=== PATIENT | male | born 1960 | race Caucasian/White ===

== ENCOUNTER 2019-09-14 02:15 | Inpatient (IN) | payer OTHER ==
[2019-09-14] VITALS (21 sets, daily range): BP systolic 91–130; BP diastolic 48–68
[~2019-09-14] VITALS: Ht 180.3 cm; Wt 178.5 kg
[2019-09-14] MEDS ORDERED: ACETAMINOPHEN TAB 650MG DOSE (2X325MG) PO PRN (03:30)
[2019-09-14] MEDS ORDERED: LORazepam 2 MG TAB PO PRN (05:15)
[2019-09-14] MEDS ORDERED: THIAMINE 100 MG TAB PO SCH (05:18)
[2019-09-14 05:33] LABS: HEMATOCRIT 41.9 % (42.0-52.0); HEMOGLOBIN 13.6 g/dl (13.5-17.5); MEAN CORPUSCULAR HGB CONC 32.5 g/dl (32.0-36.5); RED BLOOD COUNT 3.58 10^6/uL (4.30-6.10); WHITE BLOOD COUNT 9.5 10^3/uL (4.0-10.0)
[2019-09-14] MEDS ORDERED: FOLI1TAB11 PO (05:34)
[2019-09-14] MEDS ORDERED: VITA100T28 PO (05:34)
[2019-09-14] MEDS ORDERED: LACT10SO29 PO (05:34)
[2019-09-14] MEDS ORDERED: VENTAER INH (05:34)
[2019-09-14] MEDS ORDERED: NADO40TA PO (05:34)
[2019-09-14] MEDS ORDERED: FURO80TA2 PO (05:34)
[2019-09-14] MEDS ORDERED: MELA1TAB9 PO (05:34)
[2019-09-14] MEDS ORDERED: SPIR100T3 PO (05:34)
[2019-09-14] MEDS ORDERED: PANT-23 PO (05:34)
[2019-09-14] MEDS ORDERED: VITA100018 PO (05:34)
[2019-09-14 05:42] LABS: INR 1.71; PLATELET COUNT, AUTOMATED 92 10^3/uL (150-450); PROTHROMBIN TIME 19.9 SECONDS (11.8-14.0)
[2019-09-14 05:46] LABS: ABG BASE EXCESS 8.8 (-2.0-2.0); ABG HCO3 40.1 MEQ/L (22.0-26.0); ABG O2 SATURATION 99.2 % (95.0-99.0); ABG PARTIAL PRESSURE O2 163.7 mmHg (75.0-100.0); ABG STANDARD HCO3 32.7 MEQ/L (22.0-26.0)
[2019-09-14 05:49] LABS: ABG PARTIAL PRESSURE CO2 94.2 mmHg (35.0-45.0); ABG pH (ARTERIAL) 7.247 UNITS (7.350-7.450)
--- NOTE | 2019-09-14 05:58 | HPEPDOC ---
[facility] Medical History & Physical Date of Admission Sep 14, 2019 Date of Service: Sep 14, 2019 Attending Physician: FRANCHESCA BURNS MD History and Physical TIME OF SERVICE: 5:10 AM // CC time 40min CHIEF COMPLAINT: Transfer for higher level of care HISTORY OF PRESENT ILLNESS: This is a 58-year-old male who was initially transferred from [place] to a [facility] for alcohol detoxification on September 12. Per d/w the cross- covering provider the patient's course was complicated by the development of encephalopathy possibly 2/2 withdrawal. Yesterday the patient's mental status worsened, and he was noted to be lethargic but not comatose. It was felt that the change is his mental status was not due to withdrawal as his last dose of ativan was administered the day prior and he did not have other symptoms c/w with alcohol. It was possible that the change was due to hypercapnia as the patient's mental status improved after his FiO2 was decreased; additionally his ABG revealed a pH of 7.29, PCO2 of 79.7 and PO2 of 103 on 2L NC. After he was switched to BIPAP (04/25) a second ABG revealed a pH of 7.34 with a PCO2 of 72. Transfer to [facility] was requested by the cross covering provider who anticipated that the patient may need to be intubated which may be challenging because his body habitus and for IR perform paracentesis because the patient has ascites. Currently the patient denies having any pain or dyspnea and is only c/o having a dry mouth. 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 HOME MEDICATIONS: Please see below. PHYSICAL EXAMINATION: VITAL SIGNS: Please see below. GENERAL APPEARANCE: obese / well developed / NAD HEENT: BIPAP mask in place / mucus membranes dry / there is no scleral icterus CARDIOVASCULAR: RRR/NMRG/ extremities are warm and well perfused (exam is limited due to patient's body habitus) LUNGS: there is equal air entry bilaterally and decreased breath sounds (exam is limited due to patient's body habitus) ABDOMEN: soft & NT on palpation MUSCULOSKELETAL: MANDIE in upper extremities : hendricks in place draining dark red/orange urine INTEGUMENT: stasis dermatitis changes in both lower extremities NEUROLOGICAL:CN 2-12 grossly intact / speech not dysarthric PSYCHIATRIC: A&O/ able to understand and follow all commands LABORATORY DATA: Per transfer records WBC 6, Hg 13.9, Plt 86, Na 135, K 3.1, Cl 96, HCO2 39, BUN 7, Cr 1, glucose 98, AST 56, ALT 31, Alk P 141. IMAGING: pending ASSESSMENT: is a 58 yr old M w a PMH of alcoholic liver cirrhosis complicated by thrombocytopenia and ascities, morbid obesity and possibly COPD who was transferred for management of acute hypercapnic respiratory failure who's cause is TBD. PLAN: 1. Acute Hypercapnic Respiratory Failure Cause TBD. According to the transferring provider the patient has COPD but the patient denied knowledge of this diagosis. I suspect he has underlying SWETHA/OHS Plan: admit to ICU / c/w BIPAP / f/u ABG, chest x-ray and Respiratory panel /strict NPO pending Pulm Eval /albuterol PRN / will need PFTs & a sleep study which can be done on an out pt basis 2. Enecephalopathy Possibly due to hypercapnia Plan: frequent neurochecks / f/u ammonia / thiamine 3. Alcohol WD Resolving ? Plan: ativan per CIWA protocol / thiamine / folic acid / fall and seizure precautions 4. Alcoholic Liver Cirrhosis with Ascites and Thrombocytopenia Plan: pending CBC and Coags the day time team may perform paracentesis or consider IR consult for the procedure 5. Tobacco Abuse He declined a nicotine patch Plan: smoking cessation education 6. Morbid Obesity Plan: can f/u w PCP for executive chairman of the board consult & referral for Bariatric surgeon / r ecommend cardiovascular exercise for 40 min 4-5 days a week DVT Px w Heparin bc patient is obese, bed bound and not mobile Dispo pending clinical course Home Medications Scheduled Cyanocobalamin (Vitamin B-12) (Vitamin B-12) 1,000 Mcg Tablet, 1,000 MCG PO DAILY Folic Acid (Folic Acid) 1 Mg Tablet, 1 MG PO DAILY Furosemide (Furosemide) 80 Mg Tablet, 80 MG PO BID Lactulose (Lactulose) 10 Gm/15 Ml Solution, 30 ML PO QID Melatonin (Melatonin) 5 Mg Tablet, 10 MG PO QHS Nadolol (Nadolol) 40 Mg Tablet, 40 MG PO DAILY Pantoprazole Sodium (Pantoprazole Sodium) 40 Mg Tablet.dr, 40 MG PO DAILY Spironolactone (Spironolactone) 100 Mg Tablet, 100 MG PO DAILY Thiamine Mononitrate (Vit B1) (Vitamin B-1) 100 Mg Tablet, 100 MG PO DAILY Scheduled PRN Albuterol Sulfate (Ventolin Hfa) 18 Gm Hfa.aer.ad, 2 PUFF INH Q4H PRN for SHORTNESS OF BREATH Allergies Coded Allergies: Penicillins (Unverified Allergy, Unknown, 09/14/19) A-FIB/CHADSVASC A-FIB History Current/History of A-Fib/PAF?: No Current PO Anticoag Therapy: No FRNACHESCA BURNS MD Sep 14, 2019 05:58
[2019-09-14] MEDS ORDERED: LORazepam 2 MG/ML VIAL (J2060) IV PRN (06:00)
[2019-09-14 06:05] LABS: ALT/SGPT 30 U/L (12-78); BLOOD UREA NITROGEN 10 MG/DL (7-18); CALCIUM LEVEL 8.7 MG/DL (8.5-10.1); CARBON DIOXIDE LEVEL 40 MEQ/L (21-32); CHLORIDE LEVEL 95 MEQ/L (98-107); CREATININE FOR GFR 1.17 MG/DL (0.70-1.30); GLOMERULAR FILTRATION RATE > 60.0 (>56); GLUCOSE, FASTING 98 MG/DL (70-100); POTASSIUM SERUM 3.3 MEQ/L (3.5-5.1); SODIUM LEVEL 138 MEQ/L (136-145)
[2019-09-14 06:06] LABS: BILIRUBIN,TOTAL 5.4 MG/DL (0.2-1.0); TOTAL PROTEIN 6.2 GM/DL (6.4-8.2)
[2019-09-14] MEDS: HEPARIN SOD (PORCINE) 5000 UNITS/ML VIAL SC SCH ×3 (06:42→20:39)
[2019-09-14] MEDS: KCL 10MEQ/100ML SWI (KRUN) 10 MEQ in IV 1 EA IV ONE ×2 (07:00→07:48)
--- NOTE | 2019-09-14 07:13 | REP ---
Portable chest, 06:57 a.m., single AP view with the patient semi upright: There are no comparisons. The lung harper are clear. Cardiac size is enlarged. The sisi, mediastinum, skeletal structures are unremarkable. Impression: Cardiomegaly. Electronically Signed by Gerson Schaffer MD 09/14/2019 07:04 A
[2019-09-14] MEDS ORDERED: ALBUTEROL 90 MCG/ACT 8GM HFA INHALER INH PRN (07:15)
[2019-09-14 07:21] LABS: ABG BASE EXCESS 9.5 (-2.0-2.0); ABG HCO3 39.3 MEQ/L (22.0-26.0); ABG O2 SATURATION 98.1 % (95.0-99.0); ABG PARTIAL PRESSURE O2 107.8 mmHg (75.0-100.0); ABG STANDARD HCO3 33.3 MEQ/L (22.0-26.0); ABG TOTAL CO2 41.9 MEQ/L (22.0-29.0); ABG pH (ARTERIAL) 7.296 UNITS (7.350-7.450)
[2019-09-14 07:23] LABS: ABG PARTIAL PRESSURE CO2 82.5 mmHg (35.0-45.0)
[2019-09-14] MEDS ORDERED: FUROSEMIDE 40 MG/4 ML VIAL (J1940) IV ONE (08:15)
[2019-09-14] MEDS ORDERED: methylPREDNISolone INJ 125 MG/2 ML VIAL (J2930) IV ONE (08:15)
[2019-09-14] MEDS ORDERED: IPRATROPIUM 0.5MG/ALBUTEROL 2.5MG INH SOL UD 3ML (DUONEB)(J7620) NEB PRN (08:15)
[2019-09-14 08:33] LABS: NT-PRO BNP 747 PG/ML (<125)
[2019-09-14] MEDS ORDERED: FOLIC ACID 1 MG TAB PO SCH (09:00)
[2019-09-14] MEDS ORDERED: FUROSEMIDE 80 MG TAB PO SCH (09:00)
[2019-09-14] MEDS ORDERED: MULTIVITAMINS/MINERALS THERAP 1 TAB PO SCH (09:00)
--- NOTE | 2019-09-14 10:18 | CCN ---
DATE OF VISIT: 09/14/2019 START TIME: 849 STOP TIME: 927 I attended Leodan Soria here in the intensive care unit. The patient has been examined and the chart reviewed. I spoke at length with Dr. Alberto earlier regarding him. In essence, this is a 58-year-old gentleman with known long standing alcohol abuse with cirrhosis. He was in [place] for detox, but transferred to [place]. He was found to have acute on chronic respiratory failure with a respiratory acidosis complicated by elevated ammonia. He was also getting benzodiazepines as part of his detox. He is known to have very significant ascites felt to be complicating his status as well. First blood gas done on arrival here with pH 7.247, pCO2 94.2 and pO2 163.7. Manipulations made in the bilevel, pH now 7.296, pCO2 down to 82.5 and pO2 of 107.8. At one point at [place] on bilevel support, he had a pH of 7.34 with a pCO2 of 72. Chest x-ray shows poor inspiratory effort, there may be some vascular congestion. Other laboratories show a sodium of 138, potassium 3.3, chloride 95, CO2 40, BUN 10, creatinine 1.17. Ammonia is 60. Pro BNP is 747. AST and ALT 49 and 30 respectively. Alkaline phosphatase 125. INR 1.7. White blood cell count 9.5, hemoglobin 13.6 and platelet count 92. Bilirubin was 5.4. On exam, blood pressure 104 systolic, respiratory rate 14 to 16 and unlabored on the noninvasive support. He is afebrile at 97.6. HEENT: Shows noninvasive mas in place. Pupils do react. Sclerae are mildly icteric. Trachea is in the midline. Jugular venous system difficult to assess with his BiPap mask in place and his body habitus. Chest shows diminished, but symmetric expansion. There are some faint crackles dependently. Cardiac Exam: Distant, mildly tachycardiac, but regular. Peripheral pulses are markedly diminished and there is woody edema with chronic venous stasis changes noted. Abdomen is obese. There clearly is ascites. There are positive bowel sounds in the distance. Extremities show chronic skin changes consistent with chronic venous stasis. Edema is as noted above. Neurologically sedate. Moves all extremities. Somewhat intermittently confused when aroused, but does answer questions. Psychiatric: Sedate. The most pressing problems requiring my presence at the bedside: 1. Acute on chronic respiratory failure, both hypoxemic and hypercapnic. 2. Cirrhosis with ascites, felt to be secondary to alcohol disease. 3. Long standing tobacco abuse. 4. Chronic venous stasis disease. 5. Encephalopathy, multifactorial. 6. Morbid obesity. 7. Suspect underlying obstructive sleep apnea. 8. Thrombocytopenia. 9. Coagulopathy secondary to liver disease. His medication list has been reviewed. He is receiving sedatives as part of his detox and I would be somewhat more careful regarding his benzodiazepines. At this point, he is a trial of intubation if needed, but I do believe if some of his ascites were able to be drained, it would certainly significantly improve his respiratory status. Currently, he is moving tidal volumes in excess of 700 on his current noninvasive settings and these are volumes we would never able to be even close to achieving via mechanical ventilatory support. In view of this, will continue with noninvasive support for now. I am in agreement with the remainder of his regimen, but care must be taken with his benzodiazepines. At this point, we will proceed as outlined above. He does remain critically ill and there is certainly a high degree of the likelihood for further compromise. I left the bedside at 0928 hours. 38 minutes of critical care time delivered at the bedside, not including procedures.
[2019-09-14] MEDS: FOLIC ACID 1 MG TAB PO SCH (10:26)
[2019-09-14] MEDS: LACTULOSE 20 GM/30 ML SYRUP UD PO SCH ×4 (10:26→20:39)
--- NOTE | 2019-09-14 10:26 | IPNPDOC ---
Text Note Date of Service The patient was seen on 09/14/19. NOTE SUBJECTIVE: Patient is a 58 -year-old male admitted for hypercapnia, of unknown cause. He was started on BiPAP overnight in the ICU. Overnight patient was afebrile. This morning, he had complained of shortness of breath, pain in the scrotum, no chest pain, no palpitation. He was on BiPAP early this morning. OBJECTIVE: PHYSICAL EXAMINATION: GENERAL APPEARANCE: Obese, slightly malodorous gentleman, resting in bed, with BiPAP SKIN: Warm, venous stasis noticed on lower extremity ENT: Dry oral mucous membrane LUNGS: Moderate wheeze heard in bilateral lower lung harper, no rhonchi, no crackles HEART: Normal S1, S2. No murmurs, no rubs, no gallops ABDOMEN: Obese abdomen, nondistended, bowel sounds present, EXTREMITIES: Moves all extremities equally. No gross deformities. 1+ pitting edema. PULSES: 2+ upper and lower extremity . Genital: Zuniga catheter in place, large fluid-filled scrotum, positive light illumination LABORATORY DATA: Please see below. IMAGING: Chest X-Ray: Cardiomegaly, with Lopressor comparison. ASSESSMENT AND PLAN: Patient is a 58, year old male admitted for hypercapnic respiratory failure, secondary to COPD, congestive heart failure, alcohol withdrawal, and SWETHA Acute hypercapnic and hypoxic respiratory failure . Etiology is questionable, differential diagnoses include acute exacerbation of suspected COPD, acute decompensated right sided heat failure, all in the setting of SWETHA -Admit to the ICU on BiPAP -Echocardiogram ordered -Initial PCO2 was 94.2, repeat was 82.2, continue to trend - Clinically patient appears to have signs of fluid overload; He has been given a dose of Furosemide 40 IV - will continue to monitor fluid output - Patient has an extensive smoking history; high suspicion for underlying COPD; will give loading dose of Solumedrol 125 IV and continue with 60 IV q8H - Will start inhaled therapy with Duoneb q4h and PRN -Payloader Machine Operator consulted. will continue to monitor Decompensated right sided heart failure -Patient appears to be edematous, with venous stasis, no crackles were however appreciated -Chest x-ray showed cardiomegaly, no prior for comparison, -BNP of 747 -Given 40 IV Lasix, patient was also on 80 mg of Lasix by mouth twice a day, have restarted this. -Cardiac Echo ordered Acute exacerbation of suspected COPD -Started on IV methylprednisone -Duoneb on board Alcohol abuse disorder - Patient is at risk of withdrawal - c/w CIWA protocol; s/p Ativan - c/w Thiamine, Folate and MVI History of underlying cirrhosis with ascites - Mild elevation of AST to ALT; 2:1 ratio - suggesting alcohol abuse Thrombocytopenia - Likely 2/2 liver dysfunction (as above) Coagulopathy - Likely 2/2 liver dysfunction (as above) - INR of 1.7 - No evidence of bleeding; will continue to monitor Hydrocele, - likely secondary to fluid overload -Will continue to follow I/Os -Lasix on board -Will continue to monitor Difficult IV access -PICC line ordered Morbid obesity This presents a complication to his overall health, care management. Hypokalemia -IV replacement orders DVT Prophylaxis -Heparin VS,Fishbone, I+O VS, Fishbone, I+O Laboratory Tests 09/14/19 05:20 Vital Signs Date Time Temp Pulse Resp B/P (MAP) Pulse Ox O2 Delivery O2 Flow Rate FiO2 09/14/19 07:55 96.2 63 13 94/50 (65) 97 NIPPV (BIPAP/CPAP) 35 I&O- Last 24 Hours up to 6 AM 09/14/19 06:00 Intake Total 0 ml Output Total 750 ml Balance -750 ml GME ATTESTATION GME ATTESTATION My faculty preceptor for this patient encounter was physically present during the encounter and was fully available. All aspects of the patient interview, examination, medical decision making process, and medical care plan development were reviewed and approved by the faculty preceptor. The faculty preceptor is aware and concurs with the plan as stated in the body of this note and will attest to such by his/her cosignature. ATTENDING NOTE I, Shanta Palm, have independently examined this patient and performed my own physical exam, as well as reviewed the documentation and edited where necessary. I have discussed in detail with the resident / student the findings and plan of treatment as documented by the resident / student and edited their note. I agree with their findings and treatment plan and have edited their documentation. I will continue to follow the patient during this hospital stay. Plan: - Payloader Machine Operator consulted for BIPAP management; appreciate their input - Physical with evidence of wheezing at bilateral lung harper and lower extremity pitting edema as well as scrotal edema is appreciated - Patient does not have a formal diagnosis of COPD; however given his extensive smoking history and clinical picture - suspected acute COPD exacerbation is likely - Patient likely has right-sided heart failure in the setting - I have given him a dose of furosemide 40 IV with plans for strict ins and outs and daily weights - I have given him a dose of Solu-Medrol 125 mg IV and will continue with Solu- Medrol 60 mg IV q6h with JINNY Park DO Sep 14, 2019 10:26 SHANTA PALM MD Sep 14, 2019 13:09
[2019-09-14] MEDS: CYANOCOBALAMIN 500 MCG TAB PO SCH (10:27)
[2019-09-14] MEDS: PANTOPRAZOLE 40MG TAB (PROTONIX) PO SCH (10:27)
[2019-09-14] MEDS: POTASSIUM CHLORIDE 10 MEQ SR TABLET PO ONE ×2 (10:27→10:30)
[2019-09-14] MEDS: NADOLOL 20MG TABLET PO SCH (10:28)
[2019-09-14] MEDS: SPIRONOLACTONE 50 MG TAB PO SCH (10:28)
[2019-09-14 14:31] LABS: ABG pH (ARTERIAL) 7.331 UNITS (7.350-7.450)
[2019-09-14 14:32] LABS: ABG HCO3 39.1 MEQ/L (22.0-26.0); ABG O2 SATURATION 94.9 % (95.0-99.0); ABG PARTIAL PRESSURE O2 75.2 mmHg (75.0-100.0); ABG STANDARD HCO3 33.7 MEQ/L (22.0-26.0); ABG TOTAL CO2 41.4 MEQ/L (22.0-29.0)
[2019-09-14 14:33] LABS: ABG PARTIAL PRESSURE CO2 75.6 mmHg (35.0-45.0)
[2019-09-14] MEDS ORDERED: LIDOCAINE 1% MDV 20ML VIAL As Ordered ONE (15:30)
[2019-09-14] MEDS: IPRATROPIUM 0.5MG/ALBUTEROL 2.5MG INH SOL UD 3ML (DUONEB)(J7620) NEB SCH ×3 (16:46→20:26)
[2019-09-14] MEDS: methylPREDNISolone INJ 125 MG/2 ML VIAL (J2930) IV SCH ×2 (16:52→20:39)
[2019-09-14] MEDS: THIAMINE HCL 200 MG/2 ML VIAL (J3411) IV SCH (16:52)
[2019-09-14] MEDS: FUROSEMIDE 40 MG/4 ML VIAL (J1940) IV SCH (17:00)
[2019-09-14 21:36] LABS: CALCIUM LEVEL 8.9 MG/DL (8.5-10.1); CREATININE FOR GFR 1.49 MG/DL (0.70-1.30); GLOMERULAR FILTRATION RATE 51.4 (>56); MAGNESIUM LEVEL 1.8 MG/DL (1.8-2.4); POTASSIUM SERUM 3.8 MEQ/L (3.5-5.1)
[2019-09-15] VITALS (17 sets, daily range): BP systolic 89–143; BP diastolic 46–66
[2019-09-15] MEDS: FUROSEMIDE 40 MG/4 ML VIAL (J1940) IV SCH
[2019-09-15] MEDS: IPRATROPIUM 0.5MG/ALBUTEROL 2.5MG INH SOL UD 3ML (DUONEB)(J7620) NEB SCH ×4 (01:56→19:37)
[2019-09-15] MEDS: HEPARIN SOD (PORCINE) 5000 UNITS/ML VIAL SC SCH ×3 (05:40→22:56)
[2019-09-15] MEDS: methylPREDNISolone INJ 125 MG/2 ML VIAL (J2930) IV SCH ×2 (05:40→18:10)
[2019-09-15 05:55] LABS: HEMATOCRIT 38.9 % (42.0-52.0); MEAN CORPUSCULAR HEMOGLOBIN 37.2 pg (27.0-33.0); MEAN CORPUSCULAR HGB CONC 33.4 g/dl (32.0-36.5); MEAN CORPUSCULAR VOLUME 111.5 fl (80.0-96.0); PLATELET COUNT, AUTOMATED 106 10^3/uL (150-450); RED BLOOD COUNT 3.49 10^6/uL (4.30-6.10); WHITE BLOOD COUNT 9.6 10^3/uL (4.0-10.0)
[2019-09-15 06:19] LABS: ALBUMIN 1.9 GM/DL (3.2-5.2); BILIRUBIN,TOTAL 4.5 MG/DL (0.2-1.0); CALCIUM LEVEL 8.7 MG/DL (8.5-10.1); CREATININE FOR GFR 1.68 MG/DL (0.70-1.30); GLOMERULAR FILTRATION RATE 44.7 (>56); POTASSIUM SERUM 3.9 MEQ/L (3.5-5.1); TOTAL PROTEIN 6.1 GM/DL (6.4-8.2)
[2019-09-15] MEDS: SPIRONOLACTONE 50 MG TAB PO SCH (08:09)
[2019-09-15] MEDS: NADOLOL 20MG TABLET PO SCH (08:10)
[2019-09-15] MEDS: FOLIC ACID 1 MG TAB PO SCH (08:21)
[2019-09-15] MEDS: THIAMINE HCL 200 MG/2 ML VIAL (J3411) IV SCH (08:21)
[2019-09-15] MEDS: PANTOPRAZOLE 40MG TAB (PROTONIX) PO SCH (08:21)
[2019-09-15] MEDS: CYANOCOBALAMIN 500 MCG TAB PO SCH (08:21)
[2019-09-15] MEDS: LACTULOSE 20 GM/30 ML SYRUP UD PO SCH ×2 (08:22→13:00)
[2019-09-15 08:58] LABS: ABG BASE EXCESS 7.5 (-2.0-2.0); ABG HCO3 32.9 MEQ/L (22.0-26.0); ABG O2 SATURATION 94.9 % (95.0-99.0); ABG PARTIAL PRESSURE O2 68.3 mmHg (75.0-100.0); ABG STANDARD HCO3 31.3 MEQ/L (22.0-26.0); ABG TOTAL CO2 34.4 MEQ/L (22.0-29.0); ABG pH (ARTERIAL) 7.445 UNITS (7.350-7.450)
--- NOTE | 2019-09-15 10:16 | REP ---
Procedure: PICC line insertion with Sadi The procedure was performed under the direct supervision of Dr. Ayon. The risks and benefits of the procedure were explained to the patient and informed consent was obtained. The procedure was performed in the ICU at the bedside. The right basilic vein was localized using ultrasound guidance. The skin was prepped and draped in a sterile fashion. 1% lidocaine was used as a local anesthetic. Using ultrasound guidance the basilic vein was cannulated and a 0.018 guidewire was inserted. The needle was removed and a 5.5 Mongolian dilator and peel-away sheath was inserted over the guide wire. A 5.5 Mongolian dual in lumen catheter was cut to length of 43 cm. The dilator was removed and the catheter was inserted over the guide wire. A portable chest x-ray was performed and the image demonstrates the tip of the catheter to be in the SVC. The peel-away sheath was removed and the catheter was flushed with heparinized saline as per Hospital protocol. The catheter was affixed to the skin and a sterile dressing was applied. The patient tolerated the procedure well and there were no immediate complications. Electronically Signed by MANJULA Dove 09/15/2019 08:48 A Electronically Signed by Felix Ayon MD 09/15/2019 10:08 A
--- NOTE | 2019-09-15 11:22 | IPN ---
DATE: 09/15/2019 NOTE: Mr. Soria, did well overnight on the noninvasive mechanical ventilator. This morning he is alert and awake. He is requesting food. He is also requesting that he be allowed to get out of bed. He denies a significant cough. No shortness of breath. No chest pain or pressure. Occasionally he feels like he cannot take in a deep breath. He denies nausea. No abdominal pain. In asking him his history, he has had two previous paracentesis, though they both sound as if they were several years ago. It is also not clear that he follows regularly with a primary care provider in [place]. OBJECTIVE PHYSICAL EXAMINATION: GENERAL: Mr. Soria is lying in bed no acute distress. He can complete full sentences. No significant cough during the evaluation. VITAL SIGNS: Temperature 96.7, pulse of 45-50, respiratory rate 15-16, blood pressure 97/53 with a MAP of 68. SPO2 99% on with NIMV with a FIO2 of 0.3. HEENT: Anicteric, nares patent bilaterally. Oropharynx clear. NECK: Supple, without thyromegaly or masses, trachea is midline. LYMPH: Without cervical or supraclavicular lymphadenopathy. LUNGS: Symmetric excursion, generalized diminished air entry. No wheeze, rhonchi or crackle on tidaled excursion (anteriorly). Normal I:E. No accessory muscle usage or retractions. CARDIOVASCULAR: Distant, bradycardic, normal S1-S2. No murmur, rub or gallop appreciated, though difficult exam given body habitus. ABDOMEN: Distended, positive bowel sounds, ascites. EXTREMITIES: Chronic venous stasis changes, there is 2-3+ edema. Weak but palpable pedal pulses bilaterally. No cyanosis or clubbing. NEUROLOGIC: Continues to move all extremities. Alert, awake and oriented times three. PSYCHIATRIC: Appropriate affect. LABORATORY DATA: CBC shows a hemoglobin of 13, hematocrit 38.9, platelet count 106,000, white blood cell count 9600. Chemistry shows sodium 135, potassium 3.9, chloride 93, bicarbonate 37, anion gap 5, BUN 21, creatinine 1.7, glucose 128, calcium 8.7, magnesium 2.0, total bilirubin 4.5, AST 38, ALT 29, alkaline phosphatase 116, ammonia 21, total protein 6.1, albumin 1.9. Arterial blood gas drawn on room air was 7.45/49/68 with a measured saturation of 95% and a base excess of 7.5. Yesterday's intake and output were 860 in and 1400 out making him negative 540. Thus far today 60 in and 155 out making him negative 95. Weight yesterday 190.8 kg. IMPRESSION: 1. Acute and chronic hypercapnic respiratory failure. Differential would include secondary to COPD, SWETHA, other. 2. Cirrhosis with ascites, felt secondary to EtOH abuse. 3. Lower extremity edema. Differential would include right heart failure (enlarged cardiac silhouette on chest x-ray), secondary to extrinsic compression from ascites, or other. 4. Chronic venous stasis disease. 5. Possible underlying obstructive sleep apnea. 6. Possible underlying COPD. 7. EtOH abuse, on CIWA. 8. Tobacco usage, ongoing. RECOMMENDATIONS: 1. Will transition his NIMV to bilevel therapy with naps and nocturnally. 2. Will begin clear liquids. However, as he is potential intubation if he fails NIMV, would not advance rapidly. 3. Would get him out of bed with assist. 4. Would consider paracentesis. If that is done would anticipate that he will get hypotensive and likely would benefit from albumin resuscitation at the same time as the thoracentesis. 5. Agree with [facility] protocol. 6. The tentative plan is if he does well with the above strategy in regards to his bilevel therapy, we will discontinue it tomorrow and see how he does clinically. CAROLINE
--- NOTE | 2019-09-15 11:29 | REP ---
ASCITES SURVEY: HISTORY: Cirrhotic ascites. FINDINGS: Four-quadrant abdominal survey confirms the presence of mild to moderate abdominal ascites. Ascites is visible in all four quadrants. Electronically Signed by Felix Ayon MD 09/15/2019 01:53 P
--- NOTE | 2019-09-15 13:53 | IPNPDOC ---
Date Seen The patient was seen on 09/15/19. Progress Note SUBJECTIVE: Pt seen at bedside today. He has no acute complaints. He complains of difficulty when trying to take a deep breath. He wasn't currently short of breath. Denies any nausea, vomiting, chest pain, weakness, or tingling. OBJECTIVE PHYSICAL EXAMINATION: VITAL SIGNS: Please see below. GENERAL: Patient is pleasant and cooperative, sitting up comfortably in bed, alert and oriented in no acute distress. Skin: Visibly apparent Gynecomastia. No Spider Angiomata noted. HEENT: Normocephalic, atraumatic. No scleral icterus. PERRLA. EOMI. no nasal discharge. No tracheal deviation. No obvious swollen lymph nodes CARDIOVASCULAR: Regular rate and rhythm. Normal S1 and S2. No murmurs, gallops or rubs noted RESPIRATORY: Symmetric chest wall motion. Mild crackles noted b/l. No rhonchi noted. ABDOMINAL: Grossly distended abdomen. Dull to percussion. Fluid wave noted. Normal bowel sounds in all 4 quadrants. Pain on deep palpation, no guarding or rigidity Genitourinary: Zuniga catheter in place EXTREMITIES:. 2/4 pulses noted throughout. Chronic venous stasis skin changes in lower extremities. 1+ pitting edema noted bilaterally NEUROLOGICAL: A&O x3. Spontaneous movements of all extremities. No focal deficits noted. No asterixis noted PSYCHOLOGICAL: Mood and affect were appropriate LABORATORY DATA, MICROBIOLOGY: Please see below. 09/14/2019. Portable chest x-ray: Cardiomegaly 09/15/2019. Abdominal ultrasound: 4 quadrant abdominal survey confirms the presence of mild to moderate abdominal ascites. Ascites is visible in all 4 quadrants. ASSESSMENT AND PLAN: This is a 58-year-old white male with past medical history of alcoholic liver cirrhosis with ascites and thrombocytopenia, possible COPD, and bilateral stasis dermatitis presenting with acute on chronic hypercapnic re spiratory failure, found to have an ABG pH of 7.247 and PCO2 of 94.2 on admission. PROBLEMS: 1. Acute on chronic Hypercapnic Respiratory Failure (possibly 2/2 acute exacerbation of COPD or decompensated diastolic / right sided CHF) -ABG 7.45/49/68 with O2% of 95 and base excess 7.5. -Per Pulmonology -Transition his NIMV to bi-level therapy with naps and nocturnally -Past smoking history -Duonebs q6 ordered -Pulmonary consulted, appreciate their recommendations 2. Cirrhosis w/ ascites (2/2 Alcoholism) -4 quadrant abdominal survey confirms presence of mild to moderate abdominal ascites. Ascites is visible in all 4 quadrants. -Radiology consulted regarding Paracentesis, pt scheduled to undergo this afternoon. -continue lactulose -Pt currently does not exhibit any signs of withdrawal 3. R. Sided Heart Failure -Pt is edematous -stable respiratory status -holding Lasix due to creatinine function -Pending Echocardiogram -F/U pt's fluid status post paracentesis 4.Elevated creatinine - likely 2/2 ADAM - possibly 2/2 diuresis - Cr is elevated compared to admission levels - Will discontinue diuretic therapy - Avoid nephrotoxic medications - no IV fluids considering current edematous status 5. Coagulopathy -2/2 to Cirrhosis -Current INR at 1.71 -PT 19.9 6. Lower extremity edema -2/2 to R. HF and Fluid overload -80mg IV Lasix administered yesterday 7. Hydrocele 2/2 to fluid overload -Evaluate remission post paracentesis -Continue to monitor 8. Chronic venous stasis -Continue to monitor 9. Potential COPD - see above -Smoking history 10. Morbid Obesity -BMI of 58.7 -Complication to overall health and management 11. Hypokalemia -Resolved -continue to monitor DVT Prophylaxis -Heparin DISPOSITION: Awaiting Paracentesis VS, I&O, [facility] Vital Signs/I&O Vital Signs Date Time Temp Pulse Resp B/P (MAP) Pulse Ox O2 Delivery O2 Flow Rate FiO2 09/15/19 08:30 30 09/15/19 08:10 45 97/53 09/15/19 08:00 96.7 16 99 NIPPV (BIPAP/CPAP) I&O- Last 24 Hours up to 6 AM 09/15/19 05:59 Intake Total 860 ml Output Total 760 ml Balance 100 ml Laboratory Data 24H LABS Laboratory Tests 2 09/14/19 14:25: Blood Gas Bicarbonate Standard 33.7H, Arterial Blood pH 7.331L, Arterial Blood Partial Pressure CO2 75.6*H, Arterial Blood Partial Pressure O2 75.2, Arterial Blood Total CO2 41.4H, Arterial Blood HCO3 39.1H, Arterial Blood Base Excess 10.0H, Arterial Blood Oxygen Saturation 94.9L 09/14/19 21:01: Anion Gap 4L, Glomerular Filtration Rate 51.4L, Calcium Level 8.9, Magnesium Level 1.8 09/15/19 05:35: Anion Gap 5L, Glomerular Filtration Rate 44.7L, Calcium Level 8.7, Magnesium Level 2.0, Nucleated Red Blood Cells % (auto) 0.0, Total Bilirubin 4.5H, Aspartate Amino Transf (AST/SGOT) 38H, Alanine Aminotransferase (ALT/SGPT) 29, Alkaline Phosphatase 116, Ammonia 21, Total Protein 6.1L, Albumin 1.9L, Albumin/Globulin Ratio 0.45L 09/15/19 08:38: Blood Gas Bicarbonate Standard 31.3H, Arterial Blood pH 7.445, Arterial Blood Partial Pressure CO2 49.0H, Arterial Blood Partial Pressure O2 68.3L, Arterial Blood Total CO2 34.4H, Arterial Blood HCO3 32.9H, Arterial Blood Base Excess 7.5H, Arterial Blood Oxygen Saturation 94.9L CBC/BMP Laboratory Tests 09/14/19 21:01 09/15/19 05:35 Microbiology Microbiology 09/14/19 Respiratory Virus Panel (PCR) ([facility]ENOBIA) - Final, Complete 09/14/19 Blood Culture - Preliminary, Resulted No growth after 24 hours . All specim... 09/14/19 Blood Culture - Preliminary, Resulted No growth after 24 hours . All specim... GME ATTESTATION GME ATTESTATION My faculty preceptor for this patient encounter was physically present during the encounter and was fully available. All aspects of the patient interview, examination, medical decision making process, and medical care plan development were reviewed and approved by the faculty preceptor. The faculty preceptor is aware and concurs with the plan as stated in the body of this note and will attest to such by his/her cosignature. ATTENDING NOTE I, Shanta Polo, have independently examined this patient and performed my own physical exam, as well as reviewed the documentation and edited where necessary. I have discussed in detail with the resident / student the findings and plan of treatment as documented by the resident / student and edited their note. I agree with their findings and treatment plan and have edited their documentation. I will continue to follow the patient during this hospital stay. RACHELLE PAUL-Heri Sep 15, 2019 13:32 SHANTA POLO MD Sep 15, 2019 14:01
--- NOTE | 2019-09-15 17:33 | REP ---
Ultrasound-guided paracentesis The procedure was performed under the direct supervision of Dr. Ayon. The risks and benefits of the procedure were explained to the patient and informed consent was obtained. The largest pocket of fluid was localized in the left flank using ultrasound guidance. The skin was prepped and draped in a sterile fashion. 1% lidocaine was used as a local anesthetic. An 8-Mongolian multi side-hole catheter was inserted using trocar technique. 4400 ml of dark yellow fluid was withdrawn and discarded. The patient tolerated the procedure well and there were no immediate complications. After the appropriate amount of monitored convalescence the patient was discharged from the department. Electronically Signed by MANJULA Dove 09/15/2019 05:14 P Electronically Signed by Felix Ayon MD 09/15/2019 05:23 P
[2019-09-16] VITALS (19 sets, daily range): BP systolic 105–150; BP diastolic 58–86
[2019-09-16] MEDS: IPRATROPIUM 0.5MG/ALBUTEROL 2.5MG INH SOL UD 3ML (DUONEB)(J7620) NEB SCH ×3 (02:11→19:54)
[2019-09-16 05:22] LABS: BASO % 0.2 % (0.0-1.0); HEMATOCRIT 36.5 % (42.0-52.0); HEMOGLOBIN 12.5 g/dl (13.5-17.5); LYMPH # 0.5 10^3/uL (1.5-5.0); LYMPH % 4.7 % (24.0-44.0); MEAN CORPUSCULAR HEMOGLOBIN 37.3 pg (27.0-33.0); MEAN CORPUSCULAR HGB CONC 34.2 g/dl (32.0-36.5); MONO # 1.1 10^3/uL (0.0-0.8); MONO % 10.9 % (0.0-5.0); NEUTROPHILS # 8.6 10^3/uL (1.5-8.5); NEUTROPHILS % 83.3 % (36.0-66.0); PLATELET COUNT, AUTOMATED 115 10^3/uL (150-450); RED BLOOD COUNT 3.35 10^6/uL (4.30-6.10); WHITE BLOOD COUNT 10.4 10^3/uL (4.0-10.0)
[2019-09-16 05:47] LABS: CALCIUM LEVEL 8.8 MG/DL (8.5-10.1); GLOMERULAR FILTRATION RATE 36.6 (>56); POTASSIUM SERUM 3.5 MEQ/L (3.5-5.1)
[2019-09-16] MEDS: HEPARIN SOD (PORCINE) 5000 UNITS/ML VIAL SC SCH ×3 (06:45→21:29)
[2019-09-16] MEDS: methylPREDNISolone INJ 125 MG/2 ML VIAL (J2930) IV SCH (06:45)
[2019-09-16] MEDS: THIAMINE HCL 200 MG/2 ML VIAL (J3411) IV SCH (08:59)
[2019-09-16] MEDS: FOLIC ACID 1 MG TAB PO SCH (08:59)
[2019-09-16] MEDS: CYANOCOBALAMIN 500 MCG TAB PO SCH (09:00)
[2019-09-16] MEDS: PANTOPRAZOLE 40MG TAB (PROTONIX) PO SCH (09:00)
[2019-09-16] MEDS: SPIRONOLACTONE 50 MG TAB PO SCH (09:00)
[2019-09-16] MEDS: NADOLOL 20MG TABLET PO SCH (09:00)
--- NOTE | 2019-09-16 09:01 | ECGEPIP ---
[facility] Test Date: 2019-09-15 Pat Name: CHELSIE OLIVAREZ Department: Room: [place] [address] Gender: Male [employer] Rol[employer] Operator: KAITLYNN : 1960 Requested By: MICHELE POLO Order Number: [id number] Reading MD: Keshav Wiley Measurements Intervals [place] Rate: 49 P: VT: 0 QRS: 44 QRSD: 120 T: 30 QT: 484 QTc: 439 Interpretive Statements Sinus bradycardia most likely; baseline artifact confounds rhythm interpretation Low QRS complex voltage in all leads Incomplete right bundle branch block Nonspecific ST-T wave abnormalities Comparison tracing not on file Electronically Signed on 09-16-2019 9:01:07 EST by Keshav Wiley
--- NOTE | 2019-09-16 10:21 | IPNPDOC ---
Text Note Date of Service The patient was seen on 09/16/19. NOTE SUBJECTIVE: Patient was examined at bedside this morning, he complained of shortness of breath overnight. Patient reports that he is having discomfort with this cat heter. We have advised him that it will be discontinued today and we will continue with the bedpan in its place. Patient is status post paracentesis from yesterday, as well as status post receiving albumin. OBJECTIVE PHYSICAL EXAMINATION: VITAL SIGNS: Please see below. GENERAL: Cooperative, obese gentleman, sitting in the chest Skin: Gynecomastia. No Spider Angiomata noted. CARDIOVASCULAR: Bradycardic. Normal S1 and S2. No murmurs, gallops or rubs noted RESPIRATORY: Bilateral wheezing noted in upper and lower lung harper ABDOMINAL: Bowel sounds present in 4 quadrants, distended, obese abdomen, no tenderness to palpation Genitourinary: Zuniga catheter in place, Large scrotal swelling persists EXTREMITIES:. 2/4 pulses noted throughout. Chronic venous stasis skin changes in lower extremities. 1+ pitting edema noted bilaterally NEUROLOGICAL: A&O x3. Spontaneous movements of all extremities. No focal deficits noted PSYCHOLOGICAL: Mood and affect were appropriate LABORATORY DATA, MICROBIOLOGY: Please see below. 09/14/2019. Portable chest x-ray: Cardiomegaly 09/15/2019. Abdominal ultrasound: 4 quadrant abdominal survey confirms the presence of mild to moderate abdominal ascites. Ascites is visible in all 4 quadrants. ASSESSMENT AND PLAN: This is a 58-year-old white male with past medical history of alcoholic liver cirrhosis with ascites and thrombocytopenia, possible COPD, and bilateral stasis dermatitis presenting with acute on chronic hypercapnic respiratory failure, found to have an ABG pH of 7.247 and PCO2 of 94.2 on admission. PROBLEMS: Acute on chronic Hypercapnic Respiratory Failure (possibly 2/2 acute exacerbation of COPD or decompensated diastolic / right sided CHF) -Hypercapnia has continues to improve -Past smoking history -ECHO will be completed today -Duonebs q6 ordered PRN -Pulmonary on consultation; Appreciate their recommendations; transitioned to Prednisone PO and will continue with BIPAP only PRN Cirrhosis w/ ascites (2/2 Alcoholism) -S/p paracentesis with removal of 4400 ml -s/p lactulose -Pt currently does not exhibit any signs of withdrawal Elevated creatinine - likely 2/2 ADAM - possibly 2/2 diuresis, possibly 2/2 hepatorenal, possibly 2/2 cardiorenal - Clinically patient appears to in anasarca - Gross fluid overload - s/p Paracentesis - Unclear what patient's Cr baseline may be - Albumin levels significantly low in the setting of liver dysfunction / cirrhosis - s/p diuretic therapy - Will continue to avoid nephrotoxic medications - Will check UA / Urine electrolytes - Will continue with Albumin infusion at this point - Will consult nephrology Suspected decompensated Diastolic / R. Sided Heart Failure - Pt is edematous - stable respiratory status - Diuretics on hold (re: renal function) - Echocardiogram has been ordered Coagulopathy -2/2 to Cirrhosis - INR on admission of 1.71 Lower extremity edema / Chronic venous stasis- 2/2 to above Hydrocele 2/2 to fluid overload - See above Potential COPD - see above - Smoking history Morbid Obesity - BMI of 58.7 - Complication to overall health and management Hypokalemia - Resolved - Continue to monitor DVT Prophylaxis - Heparin DISPOSITION: - Awaiting clinical improvement VS,Jesus, I+O VS, Jesus, I+O Laboratory Tests 09/16/19 04:55 Vital Signs Date Time Temp Pulse Resp B/P (MAP) Pulse Ox O2 Delivery O2 Flow Rate FiO2 09/16/19 09:00 59 09/16/19 04:40 30 09/16/19 04:00 96.7 15 110/60 (77) 97 NIPPV (BIPAP/CPAP) I&O- Last 24 Hours up to 6 AM 09/16/19 05:59 Intake Total 1880 ml Output Total 4880 ml Balance -3000 ml GME ATTESTATION E ATTESTATION My faculty preceptor for this patient encounter was physically present during the encounter and was fully available. All aspects of the patient interview, examination, medical decision making process, and medical care plan development were reviewed and approved by the faculty preceptor. The faculty preceptor is aware and concurs with the plan as stated in the body of this note and will attest to such by his/her cosignature. ATTENDING NOTE I, Shanta Palm, have independently examined this patient and performed my own physical exam, as well as reviewed the documentation and edited where necessary. I have discussed in detail with the resident / student the findings and plan of treatment as documented by the resident / student and edited their note. I agree with their findings and treatment plan and have edited their documentation. I will continue to follow the patient during this hospital stay. JINNY ACUÑA DO Sep 16, 2019 10:21 SHANTA PALM MD Sep 16, 2019 12:48
--- NOTE | 2019-09-16 12:02 | IPN ---
DATE: 09/16/2019 Mr. Soria did well yesterday off non-invasive mechanical ventilation. He tolerated bilevel last evening. He is eating a full low-sodium diet. He has been out of bed to chair. He had a paracentesis which removed 4.5 liters of fluid. Now he occasionally feels lightheaded but that resolves with time. He is receiving 25% albumin. His biggest complaint today is that he does not like the bed and he is threatening to pull the mattress off the bed in sleep on the floor. Otherwise no shortness of breath. No cough. No chest pain or pressure. He notes his legs are still swollen. No other events overnight. He apparently he has been evicted from his home and patient family services has been consulted. PHYSICAL EXAMINATION: Mr. Soria is sitting in the chair, no acute distress. He can complete full sentences. No cough evaluation. Vital signs: Temperature 96.7, pulse 59, respiratory rate 15, blood pressure 110/60 for MAP of 7. SPO2 94% on room air. HEENT: Anicteric. Nares: Patent bilaterally. Oropharynx clear. Neck: Supple, without thyromegaly or masses, trachea is midline. Lungs: Symmetric excursion, good air entry, no wheeze, rhonchi or crackle on tidal excursion. Normal I to E. No accessory muscle usage or retractions. Cardiovascular: Bradycardic, regular rhythm, normal S1-S2. No murmur, rub or gallop appreciated, though difficult exam. Abdomen: Positive bowel sounds, distended. Extremities: Unchanged no apparent change in edema. Without cyanosis or clubbing. Neurologic: No focal deficits. Psychiatric appropriate affect. LABORATORY DATA: CBC this morning showed a hemoglobin 12.5, hematocrit 36.5, platelet count 115,000, white blood cell count 10,400 with a differential of 83% neutrophils, 5% lymphocytes, 11% monocytes. Chemistries from this morning shows sodium 134, potassium 3.5, chloride 92, bicarbonate 36, anion gap 6, BUN 31, creatinine two, glucose 128 date, calcium 8.8. Yesterday's Intake and output were 1520 in and 4840 out making him negative 3320. Of the output 4400 was the secondary to paracentesis. Thus far today 360 in and 225 making him positive 135. IMPRESSION: 1. Acute and chronic hypercapnic respiratory failure. Acute portion resolved. 2. Cirrhosis with ascites felt secondary EtOH abuse. 3. Lower extremity edema. Differential includes right heart failure, secondary to ascites, or other. 4. Chronic venous stasis disease. 5. Possible underlying obstructive sleep apnea. 6. Possible underlying COPD, though his examination is not consistent with significant obstruction. 7. EtOH abuse. 8. Tobacco usage ongoing at the time of admission. RECOMMENDATIONS: 1. We will discontinue the bilevel therapy today changing it to as needed. I would like to clinically observe him off of this device. 2. Continue CIWA protocol. 3. As I do not feel that he likely has significant COPD, will change him to prednisone 40 mg by mouth for 2 days and then off. The systemic corticosteroids will make alleviating his edema harder. 4. I feel it is reasonable to continue with bronchodilators but likely will begin to wean those as well to an as needed basis. MTDD
[2019-09-16 15:32] LABS: APPEARANCE, URINE CLEAR (CLEAR); BACTERIA, URINE AUTO NEGATIVE (NEGATIVE); BILIRUBIN, URINE AUTO NEGATIVE (NEGATIVE); BLOOD, URINE BLOOD 2+ (NEGATIVE); COLOR, URINE AMBER (YELLOW); GLUCOSE, URINE (UA) AUTO NEGATIVE (NEGATIVE); KETONE, URINE AUTO NEGATIVE (NEGATIVE); LEUKOCYTE ESTERASE, URINE AUTO 1+ (NEGATIVE); MUCUS, URINE SMALL (NEGATIVE); NITRITE, URINE AUTO NEGATIVE (NEGATIVE); PROTEIN, URINE AUTO NEGATIVE (NEGATIVE); RBC, URINE AUTO 6 /HPF (0-3); SPECIFIC GRAVITY URINE AUTO 1.012 (1.002-1.035); SQUAMOUS EPITHELIAL CELL UR AU 2 /HPF (0-6); WBC, URINE AUTO 4 /HPF (0-3)
[2019-09-16 15:42] LABS: SODIUM,RANDOM URINE < 10 MEQ/L
[2019-09-16] MEDS ORDERED: CALCIUM CARBONATE 500 MG CHEW U/D PO PRN (20:00)
[2019-09-16] MEDS: ACETAMINOPHEN TAB 650MG DOSE (2X325MG) PO PRN (20:06)
[2019-09-17] VITALS (20 sets, daily range): BP systolic 107–145; BP diastolic 53–87
[2019-09-17] MEDS: IPRATROPIUM 0.5MG/ALBUTEROL 2.5MG INH SOL UD 3ML (DUONEB)(J7620) NEB SCH ×2 (02:26→08:00)
[2019-09-17 03:09] LABS: ABG BASE EXCESS 8.7 (-2.0-2.0); ABG O2 SATURATION 94.5 % (95.0-99.0); ABG PARTIAL PRESSURE CO2 43.9 mmHg (35.0-45.0); ABG PARTIAL PRESSURE O2 70.8 mmHg (75.0-100.0); ABG STANDARD HCO3 32.4 MEQ/L (22.0-26.0); ABG TOTAL CO2 34.4 MEQ/L (22.0-29.0); ABG pH (ARTERIAL) 7.494 UNITS (7.350-7.450)
[2019-09-17 03:52] LABS: HEMATOCRIT 38.1 % (42.0-52.0); HEMOGLOBIN 13.3 g/dl (13.5-17.5); MEAN CORPUSCULAR HEMOGLOBIN 37.4 pg (27.0-33.0); MEAN CORPUSCULAR HGB CONC 34.9 g/dl (32.0-36.5); PLATELET COUNT, AUTOMATED 102 10^3/uL (150-450); RED BLOOD COUNT 3.56 10^6/uL (4.30-6.10); WHITE BLOOD COUNT 9.7 10^3/uL (4.0-10.0)
[2019-09-17 04:06] LABS: CALCIUM LEVEL 9.5 MG/DL (8.5-10.1); CREATININE FOR GFR 1.77 MG/DL (0.70-1.30); GLOMERULAR FILTRATION RATE 42.1 (>56); POTASSIUM SERUM 3.6 MEQ/L (3.5-5.1)
[2019-09-17] MEDS ORDERED: LACTULOSE 20 GM/30 ML SYRUP UD PO SCH ×2 (04:30→09:00)
[2019-09-17] MEDS: HEPARIN SOD (PORCINE) 5000 UNITS/ML VIAL SC SCH ×3 (05:19→20:16)
--- NOTE | 2019-09-17 06:45 | ECHO ---
DATE OF PROCEDURE: 09/16/2019 REFERRING PROVIDER: Dr. Singleton. PATIENT LOCATION: Room 3206. REASON FOR THE STUDY: Cardiomegaly. 2D MEASUREMENT: IVS 1.1 cm LV 6.2 cm LVPW 1.3 cm LA 5.1 cm Aorta 3.4 cm RV 3.9 cm Ascending aorta 3.7 cm IVC 2.1 cm DOPPLER MEASUREMENT: Peak velocity across the aortic valve 2.1 m/s Mitral E 1.3, Mitral A 0.78 with a ratio of 1.6 Maximum tricuspid valve velocity 3.3 m/s 2D COMMENTS: 1. Technically limited study due to poor acoustic window secondary to body habitus. 2. Mildly enlarged left ventricular size with probably mildly increased left ventricular wall thickness. Left ventricular systolic function is normal, LVEF estimated at 60-65%. 3. Mildly enlarged left atrium. The right atrium and the right ventricle also appeared to be enlarged. The right ventricular free wall seems to be felix in limited views. 4. The atrial septum appeared to be normal without evidence of defect or shunt. 5. Normal aortic root. Mildly dilated descending aorta at 3.7 cm. 6. A small pericardial effusion was noted, no evidence of cardiac tamponade. 7. Mildly calcified aortic valve with normal leaflet excursion. Mildly calcified mitral annulus with normal anterior mitral valve leaflet motion. Normal tricuspid valve. The pulmonic valve and proximal pulmonary artery branches were not well visualized. 8. The inferior vena cava is mildly enlarged, central venous central venous pressure is most likely elevated. DOPPLER: It detects trace mitral regurgitation and mild tricuspid regurgitation. The calculated pulmonary artery systolic pressure varies between 40-50 mmHg. Abnormal relaxation pattern was noted across the mitral valve annulus consistent with features of grade 2 left ventricular diastolic dysfunction, a pseudo-normal pattern. IMPRESSION: 1. Technically limited study due to poor acoustic window. 2. Normal global left ventricular systolic function with mildly enlarged left ventricle and preserved left ventricular wall thickness. 3. There are features of grade 2 left ventricular diastolic dysfunction manifested by a pseudo-normal pattern, left ventricular end-diastolic pressure might be elevated. 4. Aortic valve sclerosis with mild aortic stenosis but no aortic regurgitation. The ascending aorta is mildly enlarged but normal aortic root. 5. Mildly enlarged left atrium with mitral annulus calcification and trace mitral regurgitation. 6. Dilated right atrium and right ventricle with mild tricuspid radiation and probably moderate pulmonary hypertension. 7. There are findings consistent with elevated central venous pressure, the inferior vena cava is mildly enlarged. 8. A small pericardial effusion was noted, no evidence of cardiac tamponade. MTDD
[2019-09-17] MEDS: PANTOPRAZOLE 40MG TAB (PROTONIX) PO SCH (09:00)
[2019-09-17] MEDS: CYANOCOBALAMIN 500 MCG TAB PO SCH (09:26)
[2019-09-17] MEDS: FOLIC ACID 1 MG TAB PO SCH (09:26)
[2019-09-17] MEDS: predniSONE 20 MG TAB PO SCH (09:26)
[2019-09-17] MEDS: NADOLOL 20MG TABLET PO SCH (09:27)
[2019-09-17] MEDS: LACTULOSE 20 GM/30 ML SYRUP UD PO SCH ×4 (09:27→20:15)
[2019-09-17] MEDS: SPIRONOLACTONE 50 MG TAB PO SCH (09:27)
[2019-09-17] MEDS: THIAMINE HCL 200 MG/2 ML VIAL (J3411) IV SCH (09:27)
--- NOTE | 2019-09-17 09:53 | IPNPDOC ---
Text Note Date of Service The patient was seen on 09/17/19. NOTE Subjective: Patient was seen and examined at the bedside. Currently, patient is lying in bed. He is unable to answer any questions, however, appears to be alert and awake.m Objective: Vitals (See below) General: Lying in bed, no acute distress, Awake / Alert HEENT: NC, AT CVS: S1S2 Lungs: Fair air entry b/l, -w/r/r Abdomen: Soft, morbid obesity, non-tender : Scrotal edema noted Extremities: 1+ pitting edema, - Calf tenderness Imaging: CXR 09/14: Cardiomegaly. Paracentesis 09/15: 4400 cc of fluid removed US Abdomen 09/15: Four-quadrant abdominal survey confirms the presence of mild to moderate abdominal ascites. Ascites is visible in all four quadrants. ECHO 09/16: 1. Technically limited study due to poor acoustic window. 2. Normal global left ventricular systolic function with mildly enlarged left ventricle and preserved left ventricular wall thickness. 3. There are features of grade 2 left ventricular diastolic dysfunction manifested by a pseudo normal pattern, left ventricular end-diastolic pressure might be elevated. 4. Mitral annulus calcification with mild aortic stenosis but no aortic regurgitation. The ascending aorta is mildly enlarged but normal aortic root. 5. Mildly enlarged left atrium with mitral annulus calcification and trace mitral regurgitation. 6. Dilated right atrium and dilated right atrium and left ventricle with mild tricuspid radiation and probably moderate pulmonary hypertension. 7. There are findings consistent with elevated central venous pressure, the inferior vena cava is mildly enlarged. 8. A small pericardial effusion was noted, no evidence of cardiac tamponade. Assessment and plan: Acute on chronic hypercapnic and hypoxic respiratory failure - possibly 2/2 acute exacerbation of COPD or decompensated diastolic / right sided CHF - Clinically, patient's breathing appears to be stable/at baseline - Extensive smoking history - Auscultation of lung harper do not reveal any significant wheezing - Patient's PCO2 has normalized - ECHO 09/16: G2DD, Preserved EF (Full report above) - s/p Solumedrol; c/w Prednisone - c/w Inhaled therapy as ordered - s/p BIPAP - Pulmonary on consultation; appreciate their input Acute metabolic encephalopathy - likely 2/2 hepatic encephalopathy - Clinically patient is awake and alert, however he is unable to answer any questions - Does not appear to have any focal neurologic deficits - Ammonia levels noted be significant with elevated - Will resume Lactulose; will insert NGT to continue with medications Cirrhosis w/ ascites - likely 2/2 Alcoholism - s/p paracentesis with removal of 4400 ml - Resumed Lactulose ADAM - likely 2/2 hepatorenal syndrome - Unclear what patient's Cr baseline may be - Albumin levels significantly low in the setting of liver dysfunction / cirrhosis - s/p diuretic therapy Elevated creatinine - likely 2/2 ADAM - possibly 2/2 diuresis, possibly 2/2 h epatorenal, possibly 2/2 cardiorenal - Clinically patient appears to in anasarca - Gross fluid overload - s/p Paracentesis - Will resume Albumin infusion - Nephrology has been consulted; case discussed - possibly starting Midodrine today for hepatorenal syndrome Decompensated Diastolic Congestive Heart Failure - Pt is edematous - stable respiratory status - Diuretics on hold (re: renal function / Hepatorenal syndrome) - See above Coagulopathy - likely 2/2 to Cirrhosis - INR on admission of 1.71 Thrombocytopenia / Macrocytic anemia - Hg remains stable - Platelet count stable - No evidence of bleeding - Will continue to monitor Lower extremity edema / Chronic venous stasis- 2/2 to above Hydrocele 2/2 to fluid overload - See above Morbid Obesity - BMI of 58.7 - Complicating medical management s/p Hypokalemia GI prophylaxis - c/w Protonix DVT prophylaxis - c/w Heparin VS,Fishbone, I+O VS, Fishbone, I+O Laboratory Tests 09/17/19 03:30 Vital Signs Date Time Temp Pulse Resp B/P (MAP) Pulse Ox O2 Delivery O2 Flow Rate FiO2 09/17/19 09:27 124/87 09/17/19 03:30 97.1 57 18 95 Room Air 09/17/19 01:45 1.0 09/16/19 04:40 30 I&O- Last 24 Hours up to 6 AM 09/17/19 06:00 Intake Total 1040 ml Output Total 790 ml Balance 250 ml MICHELE POLO MD Sep 17, 2019 09:53
--- NOTE | 2019-09-17 14:35 | REP ---
Renal ultrasound: The patient was non ambulatory, the study is performed at the bedside in the ICU. The study is suboptimal because of patient body habitus. The right kidney is suboptimally demonstrated . Right upper quadrant ascites is identified. The left kidney is suboptimally demonstrated. With color Doppler assessment there are bilateral ureteral jets into the bladder. Impression: Suboptimal study because of patient body habitus. There are bilateral ureteral jets into the bladder. The kidneys are suboptimally demonstrated. There is right upper quadrant ascites. Electronically Signed by Gerson Schaffer MD 09/17/2019 02:27 P
[2019-09-17] MEDS: OCTREOTIDE ACETATE 100 MCG/ML VIAL (J2354) SC SCH ×2 (15:22→23:40)
[2019-09-17] MEDS: MIDODRINE 5 MG TAB PO SCH (15:23)
--- NOTE | 2019-09-17 15:41 | IPN ---
DATE: 09/17/2019 NOTE: Mr. Soria did well overnight from a respiratory point of view. He did not require bilevel therapy. In fact, he did have a time period where they were concerned regarding his mental status and a blood gas was drawn, which was acceptable. He required 1 liter of oxygen support. Events overnight, however, include more agitation. His ammonia level was found to be increased to 143. His lactulose treatment stopped on Wednesday. This morning, he is lying in bed comfortable on room air. His breaths appear effective. No obstruction noted. He is arousable to stimulation, but not to voice. When he is rolled on his side, he starts speaking and predominately cursing. OBJECTIVE: PHYSICAL EXAMINATION: GENERAL: Mr. Soria is lying in bed no acute distress. No obstruction seen. He is arousable to stimulation. VITAL SIGNS: Temperature 97.1, pulse 72, respiratory rate 16, blood pressure 138/65, with a mean arterial pressure (MAP) of 89. SpO2 95% on room air. HEENT: Anicteric, Pupils equal and reactive to light and accommodation. Nares: Nasogastric (NG) tube in place. Oropharynx: Moist mucosa. Neck: Supple, without thyromegaly or masses, trachea is midline. LUNGS: Symmetric excursion, good air entry, no wheeze, rhonchi or crackle on tidal excursion. Normal inspiratory to expiratory ratio (I:E). No accessory muscle usage or retractions. CARDIOVASCULAR: Distant, regular rate and rhythm, no murmur, rub or gallop appreciated. ABDOMEN: Perhaps slight decrease in distension. Positive bowel sounds, soft. EXTREMITIES: Positive edema, again perhaps slight decrease. Without clubbing or cyanosis. Palpable pedal pulses bilaterally. LABORATORY DATA: Sodium 134, potassium 3.6, chloride 94, bicarbonate 34, anion gap 6, BUN 32, creatinine 1.8, glucose 144, calcium 9.5, ammonia 143. Complete blood count (CBC) shows a hemoglobin of 13.3, hematocrit 38.1, platelet count 102,000, white blood cell count 9700. Arterial blood gas drawn around 3:00 a.m. was 7.49/44/71 with a measured saturation of 95%, a base excess of 8.7. Yesterday's input and output (I and O) was 1350 in and 1015 out, making him positive 335. Thus far today 170 in and 1025 out, making him negative 855. He has been incontinent three times and he has had one bowel movement. Echocardiogram from 09/16/2019 showed: Normal global left ventricular systolic function with an ejection fraction (EF) of 60-65%, grade. Features of grade 2 left ventricular diastolic dysfunction. Probable moderate pulmonary retention. IMPRESSION: 1. Acute and chronic hypercapnic respiratory failure. The acute portion is resolved. 2. Cirrhosis with ascites felt secondary EtOH abuse. 3. Lower extremity edema. I suspect part of this is secondary to right heart failure as well as secondary to ascites. 4. Pulmonary hypertension, likely moderate. 5. Grade 2 diastolic dysfunction. 6. Chronic venous stasis disease. 7. EtOH abuse. 8. Tobacco usage, ongoing at the time of admission. RECOMMENDATIONS: 1. At this point, will discontinue the bilevel therapy. 2. As noted yesterday, I do not feel he has significant chronic obstructive pulmonary disease (COPD), if he has COPD. Plan is for one more day of prednisone and then discontinue. 3. Will change his nebulized bronchodilators to an as-needed basis. As pulmonary was consulted for noninvasive mechanical ventilation management and he is no longer on that device, we will sign off for now. Please reconsult us if their are future difficulties. Thank you. CAROLINE
--- NOTE | 2019-09-17 16:17 | CR ---
DATE OF CONSULTATION: 09/17/2019 REQUESTING PHYSICIAN: Dr. Shanta Palm. REASON FOR CONSULTATION: Acute kidney injury with baseline renal function unknown. HISTORY OF PRESENT ILLNESS: Leodan Soria is previously unknown to me. Medical history is obtained from review of chart and also discussion with the other health care providers. The patient is unable to provide me with any clinical history secondary to his present condition. He is a 58-year-old male with a past medical history of diastolic congestive heart failure, alcoholic cirrhosis, thrombocytopenia, recurrent ascites, chronic obstructive pulmonary disease (COPD), morbid obesity. He was admitted to [facility] on 09/14/2019, transferred from an outside hospital for encephalopathy with acute hypercapnic respiratory failure. He had an admission creatinine of 1.1. He is off of bilevel positive airway pressure (BiPAP), has received intravenous (IV) steroids and transitioned to oral steroids. He was initially also treated with IV diuretics; however, his renal function did worsen to a creatinine of 2.0 and diuretics were subsequently withdrawn. He had a 4.4 liter paracentesis with albumin post paracentesis, with improvement in his renal function thereafter. Patient at present is encephalopathic with elevated serum ammonia levels and has a nasogastric (NG) tube and is receiving lactulose. His baseline renal function is unknown. He was seen and examined today in the intensive care unit. PAST MEDICAL HISTORY: 1. Baseline renal function unknown. 2. Chronic hypercapnic respiratory failure. 3. Chronic obstructive pulmonary disease (COPD). 4. Cirrhosis with ascites. 5. Diastolic congestive heart failure. 6. Thrombocytopenia. 7. Coagulopathy. 8. Morbid obesity. 9. Chronic venous stasis. PAST SURGICAL HISTORY: Unobtainable. Nothing mentioned in the chart. ALLERGIES: PENICILLINS. HOME MEDICATIONS: - albuterol as needed - B12 1000 mcg by mouth daily - folic acid 1 mg by mouth daily - Lasix 80 mg by mouth twice a day - lactulose 30 mL four times a day - melatonin 10 mg by mouth at bedtime - nadolol 40 mg by mouth daily - Protonix 40 mg by mouth daily - spironolactone 100 mg by mouth daily - thiamine 100 mg by mouth daily. FAMILY HISTORY: Per the chart, there is a family history of diabetes. SOCIAL HISTORY: Tobacco and alcohol abuse. REVIEW OF SYSTEMS: Unable to obtain secondary to clinical condition. PHYSICAL EXAMINATION: VITAL SIGNS: Temperature 97.1, pulse 72, respiratory rate 16, blood pressure 138/65, saturating 95% on room air. Intake yesterday was 1350. Urine output yesterday was 1 liter. Weight in the bed scale today is 154.8 kg. GENERAL: The patient is seen lying in bed in the intensive care unit, morbidly obese male who is not awake, alert or oriented, but does not appear to be in any acute respiratory distress. Does not make eye contact. Neck veins are difficult to assess secondary to body habitus, but appear elevated. Heart sounds are regular. S1, S2. There is 2+ pitting edema present up to the hip, thigh and groin LUNGS: Show distant and diminished air entry. He is seen on room air. ABDOMEN: Soft and obese. There are bowel sounds present LOWER EXTREMITIES: Show chronic venous stasis changes and 2+ pitting edema. NEUROLOGIC: The patient is not arousable to verbal or tactile stimulus. He is not awake, alert or oriented LABORATORY: White count 9.7, hemoglobin 13.3, platelet 102. INR 1.7. Sodium 134, potassium 3.6, bicarbonate 34, BUN 32, creatinine 1.7, ammonia 143. pH 7.49, pCO2 43. Blood cultures: No growth for 72 hours times two sets. Echocardiogram 09/16/2019: Left ventricular ejection fraction of 68%. Grade 2 diastolic dysfunction. Probable moderate pulmonary hypertension. Inferior vena cava is mildly enlarged. INPATIENT MEDICATIONS: - Tylenol as needed - Tums as needed - B12 1000 mcg by mouth daily - folic acid 1 mg by mouth daily - heparin 5000 units subcutaneous every 8 hours - lactulose 30 mL every 4 hours - nadolol 40 mg by mouth daily - Protonix 40 mg by mouth daily - prednisone 40 mg by mouth daily - spironolactone 100 mg by mouth daily - thiamine 100 mg IV daily PROBLEMS: 1. Nonoliguric acute kidney injury with baseline renal function unknown, with an admission creatinine of 1.1 and a peak creatinine of 2.0. Patient is grossly volume overloaded; however, he did have worsening renal function with the administration of diuretics. He received 120 mg of IV Lasix on 09/14/2019 and creatinine did bump from 1.1 to 1.6. His urine studies show a urine sodium of less than 10 in this patient with cirrhosis with ascites, concerning for possible hepatorenal syndrome. Usually, such patient's have borderline soft blood pressures and I do see that during the first two days of admission, the patient had a systolic that was around 90-100. He has received albumin and, as expected, has had improvement in his systolic, now up to the 120s to 130s. His baseline renal function is unknown. He has a urine sodium of less than 10 and decompensated cirrhosis with ascites. His renal function did worsen with trial of diuretics. He likely has a hepatorenal syndrome. His systolic blood pressure is notably improved since he had the paracentesis with albumin infusions. I would continue the IV albumin. I am also going to hold spironolactone for now and treat him with octreotide and low-dose midodrine. He certainly is volume overloaded, but I would like to see his renal function improve prior to a second attempt at diuresis. 2. Decompensated diastolic congestive heart failure. Echocardiogram is noted from yesterday, 09/16/2019. Patient has mild enlargement of the inferior vena cava. He has significant peripheral edema. His renal function worsened with a trial of diuretics on admission. Withdrawal of diuretic for probable hepatorenal syndrome and once renal function improves, we will re-attempt at diuresis. 3. Cirrhosis with recurrent ascites status post paracentesis. Unfortunately, I do not see that any fluid analysis or cell count was sent on the ascitic fluid. That is unfortunate. He may have a spontaneous bacterial peritonitis and I feel he should have a diagnostic tap. Spontaneous bacterial peritonitis (SBP) can also predispose to hepatorenal syndrome. He is appropriately receiving albumin and has already made some improvements with the same, including a notable improvement in his mean arterial pressure. 4. Hepatic encephalopathy. Serum ammonia level of 140. He is on lactulose per the primary team. 5. Status has acute on chronic hypercapnic respiratory failure. He has received the usual treatment with IV steroids some bronchodilators and BiPAP and has been transitioned over now to oral steroids. Pulmonary is following him. He is on room air Thank you for involving me in the care of Mr. Soria. I will be happy to follow him along with you.
[2019-09-17] MEDS ORDERED: LORazepam 2 MG/ML VIAL (J2060) IV STA (23:31)
[2019-09-18] VITALS (25 sets, daily range): BP systolic 116–185; BP diastolic 58–87
[2019-09-18] MEDS: LACTULOSE 20 GM/30 ML SYRUP UD PO SCH ×14 (00:45→20:07)
[2019-09-18 04:55] LABS: HEMATOCRIT 37.9 % (42.0-52.0); HEMOGLOBIN 12.9 g/dl (13.5-17.5); MEAN CORPUSCULAR HEMOGLOBIN 37.4 pg (27.0-33.0); MEAN CORPUSCULAR VOLUME 109.9 fl (80.0-96.0); PLATELET COUNT, AUTOMATED 108 10^3/uL (150-450); RED BLOOD COUNT 3.45 10^6/uL (4.30-6.10); WHITE BLOOD COUNT 5.8 10^3/uL (4.0-10.0)
[2019-09-18 05:18] LABS: CALCIUM LEVEL 9.3 MG/DL (8.5-10.1); CREATININE FOR GFR 1.41 MG/DL (0.70-1.30); GLOMERULAR FILTRATION RATE 54.8 (>56); POTASSIUM SERUM 4.1 MEQ/L (3.5-5.1)
[2019-09-18] MEDS: HEPARIN SOD (PORCINE) 5000 UNITS/ML VIAL SC SCH ×3 (06:06→21:04)
[2019-09-18] MEDS: OCTREOTIDE ACETATE 100 MCG/ML VIAL (J2354) SC SCH ×3 (08:09→23:11)
[2019-09-18] MEDS: THIAMINE HCL 200 MG/2 ML VIAL (J3411) IV SCH (08:09)
[2019-09-18] MEDS: predniSONE 20 MG TAB PO SCH (08:09)
[2019-09-18] MEDS: MIDODRINE 5 MG TAB PO SCH ×3 (08:09→15:22)
[2019-09-18] MEDS: FOLIC ACID 1 MG TAB PO SCH (08:10)
[2019-09-18] MEDS: CYANOCOBALAMIN 500 MCG TAB PO SCH (08:10)
[2019-09-18] MEDS: NADOLOL 20MG TABLET PO SCH (08:11)
[2019-09-18] MEDS: PANTOPRAZOLE 40MG TAB (PROTONIX) PO SCH (08:11)
--- NOTE | 2019-09-18 14:45 | IPNPDOC ---
Date Seen The patient was seen on 09/18/19. Progress Note SUBJECTIVE: Patient was seen at bedside today. On entering the room, patient was responsive to his name. He responded initially saying he felt fine. However, quickly fell back into an obtunded state. Multiple attempts were made at arousing the patient with no success. OBJECTIVE PHYSICAL EXAMINATION: VITAL SIGNS: Please see below. GENERAL: Patient was seen lying on his left side in bed, initially responsive to his name, however he quickly fell back asleep. He did not appear in respiratory distress. HEENT: Normocephalic, atraumatic. No scleral icterus. no nasal discharge. No tracheal deviation. No obvious swollen lymph nodes CARDIOVASCULAR: Regular rate and rhythm. Normal S1 and S2. No murmurs, gallops or rubs noted RESPIRATORY: Lung sounds, difficult to appreciate secondary to body habitus. However, mild crackles heard in lower lobes bilaterally ABDOMINAL:. Grossly distended abdomen. No evidence of caput medusae nor spider telangiectasias. Normal bowel sounds in all 4 quadrants. Dull to percussion. Fluid wave noted EXTREMITIES:. 2/4 pulses noted throughout. 2+ pitting edema bilaterally in lower extremities with chronic venous stasis skin changes. NEUROLOGICAL: Not awake nor oriented to person, place or time. Unable to assess motor strength or sensation, nor asterixis. PSYCHOLOGICAL: Unable to assess mood or affect LABORATORY DATA, MICROBIOLOGY: Please see below. CXR 09/14: Cardiomegaly. Paracentesis 09/15: 4400 cc of fluid removed US Abdomen 09/15: Four-quadrant abdominal survey confirms the presence of mild to moderate abdominal ascites. Ascites is visible in all four quadrants. Echocardiogram: 09/16: 1. Technically limited study due to poor acoustic window. 2. Normal global left ventricular systolic function with mildly enlarged left ventricle and preserved left ventricular wall thickness. 3. There are features of grade 2 left ventricular diastolic dysfunction manifested by a pseudo normal pattern, left ventricular end-diastolic pressure might be elevated. 4. Mitral annulus calcification with mild aortic stenosis but no aortic regurgitation. The ascending aorta is mildly enlarged but normal aortic root. 5. Mildly enlarged left atrium with mitral annulus calcification and trace mitral regurgitation. 6. Dilated right atrium and dilated right atrium and left ventricle with mild tricuspid radiation and probably moderate pulmonary hypertension. 7. There are findings consistent with elevated central venous pressure, the inferior vena cava is mildly enlarged. 8. A small pericardial effusion was noted, no evidence of cardiac tamponade. ASSESSMENT AND PLAN: This is a 58-year-old white male with past medical history of alcoholic liver cirrhosis with ascites and pancytopenia, possible COPD and bilateral stasis dermatitis, presenting with acute on chronic hypercapnic respiratory failure, found to have an ABG, pH 7.247, PCO2 94.2 on admission, now found to have hepatic encephalopathy and ADAM. PROBLEMS: Acute on chronic hypercapnic and hypoxic respiratory failure - possibly 2/2 acute exacerbation of COPD or decompensated diastolic / right sided CHF - Clinically, patient's breathing appears to be stable/at baseline - Extensive smoking history - Auscultation of lung harper reveals mild b/l lower lobe crackles - Patient's PCO2 has normalized at 43.9 - ECHO 09/16: G2DD, Preserved EF (Full report above) - s/p Solumedrol - Continue Inhaled therapy as ordered - s/p BIPAP - Pulmonary has signed off due to patient's stable respiratory condition Acute metabolic encephalopathy - likely 2/2 hepatic encephalopathy - Pt still appears obtunded - Ammonia level noted today at 51, down from 143 - Pt has had only one bowel movement. Increasing lactulose dose to 30mL until 2- 3 movements. Cirrhosis w/ ascites - likely 2/2 Alcoholism - s/p paracentesis with removal of 4400 ml -MELD score calculated as 21 - Continue Lactulose ADAM - likely 2/2 hepatorenal syndrome - Unclear what patient's Cr baseline may be -Creatinine today at 1.41 down from 1.77 - Albumin levels significantly low (1.9) in the setting of liver dysfunction / cirrhosis - s/p diuretic therapy -Nephrology consulted, pt started on Midodrine, Octreotide Elevated creatinine - likely 2/2 ADAM - possibly 2/2 diuresis, possibly 2/2 hepatorenal, possibly 2/2 cardiorenal - Gross fluid overload - s/p Paracentesis (4400cc taken off) - Albumin infusion given today - Nephrology has been consulted (See above) Decompensated Diastolic Congestive Heart Failure - Pt is edematous - stable respiratory status - Diuretics on hold (re: renal function / Hepatorenal syndrome) - See above Coagulopathy - likely 2/2 to Cirrhosis - INR on admission of 1.71 Thrombocytopenia / Macrocytic anemia - Hg remains stable - Platelet count stable - No evidence of bleeding - Will continue to monitor Lower extremity edema / Chronic venous stasis- 2/2 to above Hydrocele 2/2 to fluid overload - See above Morbid Obesity - BMI of 58.7 - Complicating medical management s/p Hypokalemia -potassium at 3.9 GI prophylaxis - c/w Protonix DVT prophylaxis - c/w Heparin DISPOSITION: Awaiting renal improvement as well as return to baseline mental status. Attending Physician Addendum: I have independently interviewed and examined the patient at the bedside, and agree with the documented physical findings as management plan as documented above, which has been discussed with the patient and my Resident physician and medical student. VS, I&O, 24H, Fishbone Vital Signs/I&O Vital Signs Date Time Temp Pulse Resp B/P (MAP) Pulse Ox O2 Delivery O2 Flow Rate FiO2 09/18/19 13:15 96.8 56 18 100 Nasal Cannula 2 09/18/19 12:21 153/66 09/16/19 04:40 30 I&O- Last 24 Hours up to 6 AM 09/18/19 06:00 Intake Total 280.0 ml Output Total 3150 ml Balance -2870.0 ml Laboratory Data 24H LABS Laboratory Tests 2 09/18/19 04:30: Nucleated Red Blood Cells % (auto) 0.0, Anion Gap 5L, Glomerular Filtration Rate 54.8L, Calcium Level 9.3 09/18/19 10:39: Ammonia 51H CBC/BMP Laboratory Tests 09/18/19 04:30 Microbiology Microbiology 09/14/19 Respiratory Virus Panel (PCR) ([facility]) - Final, Complete 09/14/19 Blood Culture - Preliminary, Resulted No Growth after 72 hours. All specime... 09/14/19 Blood Culture - Preliminary, Resulted No Growth after 72 hours. All specime... RACHELLE PAUL-3 Sep 18, 2019 14:45 NOEMI MILIAN MD Sep 18, 2019 16:43
[2019-09-18 18:52] LABS: SOURCE, BODY FLUID ALBUMIN ASCITES; SOURCE, BODY FLUID GLUCOSE ASCITES; SOURCE, BODY FLUID TOT PROTEIN ASCITES; TOTAL PROTEIN, BODY FLUID 0.9 G/DL (NOT ESTABLISHED)
[2019-09-18 18:59] LABS: APPEARANCE, BODY FLUID CLEAR (CLEAR); ASCITES FL COLOR YELLOW (COLORLESS); SOURCE, BODY FLUID ASCITES
[2019-09-19] VITALS (7 sets, daily range): BP systolic 127–169; BP diastolic 48–92
[2019-09-19] MEDS: LACTULOSE 20 GM/30 ML SYRUP UD PO SCH ×3 (04:00→21:27)
--- NOTE | 2019-09-19 05:26 | IPN ---
DATE OF VISIT: 09/18/2019 SUBJECTIVE: Patient seen and examined this morning in the intensive care unit (ICU). He is only able to say his name for me and repeats his name time and time again. He is otherwise not alert and does not follow commands. Labs show improvement in renal function. His serum ammonia has also improved from prior also remains elevated. He is on room air and he has had an improved urine output and continues in a net negative volume status. Nursing staff reports the patient was agitated overnight and pulled out his nasogastric (NG) tube and his Zuniga catheter. REVIEW OF SYSTEMS: Unobtainable. PHYSICAL EXAMINATION: VITAL SIGNS: Temperature 96.4, pulse 52, respiratory rate 17, blood pressure 156/72, saturating 97% on room air. Intake yesterday was 280, urine output yesterday was 2375, net negative 2.1 meters. Weight in the bed scale today is 187.2 kg which is significantly different from earlier and likely unreliable. GENERAL: The patient is seen lying in the intensive care unit. A one-to-one sitter is present at the bedside. He opens his eyes to verbal and tactile stimulus but only repeats his name. HEENT/NECK: Sclerae are anicteric. Pupils are reactive to light. Tongue is moist. Jugular veins cannot be assessed secondary to body habitus. LUNGS: Lungs show symmetric air movement but somewhat prolonged expiration. No accessory muscle use, no tachypnea. CARDIAC: Regular rate and rhythm, 2+ pitting edema that is present up to the hip, thigh and dependent areas. Palpable peripheral pulses. ABDOMEN: Soft and significantly obese and nontender. There are bowel sounds. GENITOURINARY: Zuniga catheter with urine. SKIN: Chronic venous stasis changes. NEUROLOGIC: He is arousable with verbal and tactile stimulus but only oriented to person. LABORATORY DATA: Sodium 140, potassium 4.1, bicarbonate 37, BUN 30, creatinine 1.4, ammonia 51, hemoglobin 12.9, platelets 108. INPATIENT MEDICATIONS: Reviewed by myself. Primary team increased the Lactulose to 30 mL by mouth every 8 hourly. I know he is off the prednisone. The remainder of medications are unchanged from prior. PROBLEMS: 1. Nonoliguric acute kidney injury with baseline renal function unknown most likely hepatorenal syndrome in this patient with decompensated cirrhosis, depressed urine sodium, initial borderline hypotension and acute kidney injury after administration of diuretics. The patient has improved with albumin infusion, midodrine and octreotide. He is certainly volume overloaded and I would like to see his renal function improve a bit more before we attempt a second attempt at diuresis. In any case he is having minimal intake and has been in negative fluid balance the past few days despite the fact that his diuretics have been withdrawn. He has had improved urine output as his kidney function has improved with treatment of the hepatorenal syndrome. 2. Decompensated diastolic congestive heart failure. Renal function worsened with a trial of diuretics on admission. Presently diuretics are on hold and renal function is improving with treatment for hepatorenal syndrome. The patient is net negative for the past two days. I would reattempt diuresis once renal function recovers to creatinine of around one which is his creatinine on admission. 3. Hepatic encephalopathy. Serum ammonia level has improved from prior. The primary team continues him on lactulose.
[2019-09-19] MEDS: ACETAMINOPHEN TAB 650MG DOSE (2X325MG) PO PRN (06:41)
[2019-09-19] MEDS: OCTREOTIDE ACETATE 100 MCG/ML VIAL (J2354) SC SCH (06:41)
[2019-09-19] MEDS: HEPARIN SOD (PORCINE) 5000 UNITS/ML VIAL SC SCH ×3 (06:41→21:28)
[2019-09-19 07:09] LABS: BASO % 0.4 % (0.0-1.0); EOS # 0.1 10^3/uL (0.0-0.5); EOS % 1.8 % (0.0-3.0); HEMATOCRIT 39.6 % (42.0-52.0); LYMPH # 0.7 10^3/uL (1.5-5.0); LYMPH % 11.1 % (24.0-44.0); MEAN CORPUSCULAR HEMOGLOBIN 37.4 pg (27.0-33.0); MEAN CORPUSCULAR HGB CONC 32.8 g/dl (32.0-36.5); MEAN CORPUSCULAR VOLUME 113.8 fl (80.0-96.0); MONO % 15.5 % (0.0-5.0); NEUTROPHILS # 4.7 10^3/uL (1.5-8.5); NEUTROPHILS % 69.7 % (36.0-66.0); PLATELET COUNT, AUTOMATED 106 10^3/uL (150-450); RED BLOOD COUNT 3.48 10^6/uL (4.30-6.10); WHITE BLOOD COUNT 6.7 10^3/uL (4.0-10.0)
[2019-09-19 07:45] LABS: ALBUMIN 2.8 GM/DL (3.2-5.2); ALT/SGPT 40 U/L (12-78); BILIRUBIN,TOTAL 5.4 MG/DL (0.2-1.0); BLOOD UREA NITROGEN 23 MG/DL (7-18); CALCIUM LEVEL 10.4 MG/DL (8.5-10.1); CARBON DIOXIDE LEVEL 39 MEQ/L (21-32); CHLORIDE LEVEL 102 MEQ/L (98-107); CREATININE FOR GFR 1.28 MG/DL (0.70-1.30); GLOMERULAR FILTRATION RATE > 60.0 (>56); GLUCOSE, FASTING 90 MG/DL (70-100); POTASSIUM SERUM 3.8 MEQ/L (3.5-5.1); SODIUM LEVEL 143 MEQ/L (136-145); TOTAL PROTEIN 6.5 GM/DL (6.4-8.2)
[2019-09-19] MEDS: NADOLOL 20MG TABLET PO SCH (09:00)
[2019-09-19] MEDS: MIDODRINE 5 MG TAB PO SCH ×2 (09:20→12:45)
[2019-09-19] MEDS: FOLIC ACID 1 MG TAB PO SCH (09:20)
[2019-09-19] MEDS: PANTOPRAZOLE 40MG TAB (PROTONIX) PO SCH (09:20)
[2019-09-19] MEDS: CYANOCOBALAMIN 500 MCG TAB PO SCH (09:20)
[2019-09-19] MEDS: THIAMINE HCL 200 MG/2 ML VIAL (J3411) IV SCH (09:20)
--- NOTE | 2019-09-19 09:37 | REP ---
Ultrasound-guided paracentesis The procedure was performed under the direct supervision of Dr. Ayon. The risks and benefits of the procedure were explained to the patient and informed consent was obtained. The largest pocket of fluid was localized in the right flank using ultrasound guidance. The skin was prepped and draped in a sterile fashion. 1% lidocaine was used as a local anesthetic. An 8-Kinyarwanda multi side-hole catheter was inserted using trocar technique. 280 ml of clear yellow fluid was withdrawn and sent to lab for analysis. The patient tolerated the procedure well and there were no immediate complications. After the appropriate amount of monitored convalescence the patient was discharged from the department. Electronically Signed by MANJULA Dove 09/18/2019 05:51 P Electronically Signed by Felix Ayon MD 09/19/2019 09:28 A
--- NOTE | 2019-09-19 13:21 | IPNPDOC ---
Date Seen The patient was seen on 09/19/19. Progress Note SUBJECTIVE: Patient seen today, sitting comfortably in chair at bedside. He reports significant improvement in his status compared to yesterday. He no longer reports any shortness of breath nor pain on deep inspiration. His only complaint was his Zuniga catheter, which she believed he was given a large basin to urinate in, he would be comfortable with it being removed.. He has no abdominal pain, and feels his lower extremities are the same compared to yesterday. He denies any altered mental status compared to yesterday, dizziness, lightheadedness, nausea, vomiting, weakness, fatigue, tingling, chest pain. OBJECTIVE PHYSICAL EXAMINATION: VITAL SIGNS: Please see below. GENERAL: Patient is pleasant and cooperative, sitting up comfortably in chair, alert and oriented in no acute distress. Encephalopathy has significantly improved compared to yesterday. Skin: Visibly apparent Gynecomastia. No Spider Angiomata noted. HEENT: Normocephalic, atraumatic. No scleral icterus. PERRLA. EOMI. no nasal discharge. No tracheal deviation. No obvious swollen lymph nodes CARDIOVASCULAR: Regular rate and rhythm. Normal S1 and S2. No murmurs, gallops or rubs noted RESPIRATORY: Symmetric chest wall motion. Mild crackles noted b/l. No rhonchi noted. ABDOMINAL: Grossly distended abdomen. Dull to percussion. Fluid wave noted. Normal bowel sounds in all 4 quadrants. No pain, guarding or rigidity. GENITOURINARY: Zuniga catheter in place. Hydrocele noted. EXTREMITIES:. 2/4 pulses noted throughout. Chronic venous stasis skin changes in lower extremities. 2+ pitting edema noted bilaterally NEUROLOGICAL: Alert and oriented to self. He claims the year was 1998 and was unable to name the hospital. However, he is not from this area. Spontaneous movements of all extremities. No focal deficits noted. No asterixis noted PSYCHOLOGICAL: Mood and affect were appropriate LABORATORY DATA, MICROBIOLOGY: Please see below. CXR 09/14: Cardiomegaly. Paracentesis 09/15: 4400 cc of fluid removed US Abdomen 09/15: Four-quadrant abdominal survey confirms the presence of mild to moderate abdominal ascites. Ascites is visible in all four quadrants. Echocardiogram: 09/16: 1. Technically limited study due to poor acoustic window. 2. Normal global left ventricular systolic function with mildly enlarged left ventricle and preserved left ventricular wall thickness. 3. There are features of grade 2 left ventricular diastolic dysfunction manifested by a pseudo normal pattern, left ventricular end-diastolic pressure might be elevated. 4. Mitral annulus calcification with mild aortic stenosis but no aortic regurgitation. The ascending aorta is mildly enlarged but normal aortic root. 5. Mildly enlarged left atrium with mitral annulus calcification and trace mitral regurgitation. 6. Dilated right atrium and dilated right atrium and left ventricle with mild tricuspid radiation and probably moderate pulmonary hypertension. 7. There are findings consistent with elevated central venous pressure, the inferior vena cava is mildly enlarged. 8. A small pericardial effusion was noted, no evidence of cardiac tamponade. ASSESSMENT AND PLAN: This is a 58-year-old white male with past medical history of alcoholic liver cirrhosis with ascites and pancytopenia, possible COPD and bilateral stasis dermatitis, presenting with acute on chronic hypercapnic respiratory failure, found to have an ABG, pH 7.247, PCO2 94.2 on admission with subsequent hepatic encephalopathy and ADAM PROBLEMS: Acute on chronic hypercapnic and hypoxic respiratory failure - possibly 2/2 acute exacerbation of COPD or decompensated diastolic / right sided CHF - Clinically, patient's breathing appears to be stable/at baseline - Extensive smoking history - Auscultation of lung harper reveals mild b/l lower lobe crackles - Patient's PCO2 has normalized at 43.9 - ECHO 09/16: G2DD, Preserved EF (Full report above) - s/p Solumedrol - Continue Inhaled therapy as ordered - s/p BIPAP - Pulmonary has signed off due to patient's stable respiratory condition Acute metabolic encephalopathy - likely 2/2 hepatic encephalopathy -Pt is back to baseline -Per nursing he had a major bowel movement yesterday evening -Awaiting Ammonia levels for today -Lactulose held today Cirrhosis w/ ascites - likely 2/2 Alcoholism - s/p paracentesis with removal of 4400 ml -MELD score calculated as 21 ADAM - likely 2/2 hepatorenal syndrome - Unclear what patient's Cr baseline may be -Creatinine continuing to downtrend today at 1.28 from 1.41 - Albumin levels at 2.8 - s/p diuretic therapy -Per nephrology, continue midodrine, octreotide until creatinine resolves back to ~1. -Can continue diuresis once creatinine resolves Elevated creatinine - likely 2/2 ADAM - possibly 2/2 diuresis, possibly 2/2 hepatorenal, possibly 2/2 cardiorenal -(see above) Decompensated Diastolic Congestive Heart Failure - Pt is edematous - stable respiratory status - Diuretics on hold (re: renal function / Hepatorenal syndrome) - See above Coagulopathy - likely 2/2 to Cirrhosis - INR on admission of 1.71 Thrombocytopenia / Macrocytic anemia - Hg remains stable - Platelet count stable - No evidence of bleeding - Will continue to monitor Lower extremity edema / Chronic venous stasis- 2/2 to above Hydrocele 2/2 to fluid overload - See above Morbid Obesity - BMI of 58.7 - Complicating medical management s/p Hypokalemia -potassium at 3.8 GI prophylaxis - c/w Protonix DVT prophylaxis - c/w Heparin DISPOSITION: Awaiting renal improvement followed by diuretic therapy ATTENDING NOTE I have personally evaluated and examined the patient. Discussed with residents and student regarding plan of care and agree with the above assessment and plan. Patient appeared to have improve in mental status compare to presentation based on documentation but still appear slightly confused. Apparently had ripped out his Code status arm band that states DNR/DNI but when nursing tried to re-place he states that he like to change it back to full code. However, AAO x2 to person and year only. To re-assess prior to officially changing status. VS, I&O, 24H, Fishbone Vital Signs/I&O Vital Signs Date Time Temp Pulse Resp B/P (MAP) Pulse Ox O2 Delivery O2 Flow Rate FiO2 09/19/19 09:00 58 144/77 09/19/19 06:00 97.9 18 92 Room Air 09/18/19 21:02 0.0 09/18/19 20:03 93 I&O- Last 24 Hours up to 6 AM 09/19/19 06:00 Intake Total 1310.0 ml Output Total 2800 ml Balance -1490.0 ml Laboratory Data 24H LABS Laboratory Tests 2 09/18/19 17:36: Body Fluid Source ASCITES, Body Fluid Color YELLOW, Body Fluid Appearance CLEAR, Body Fluid Specific [place] 1.010, Body Fluid WBC (Auto) 17H, Body Fluid RBC (Auto) < 2, Body Fluid Mononuclear Cells % Auto 52.9H, Fluid Polymorphonuclear Cell % Auto 47.1H, Body Fluid Glucose Source ASCITES, Body Fluid Glucose 103, Body Fluid Protein Source ASCITES, Body Fluid Total Protein 0.9, Body Fluid Albumin Source ASCITES, Body Fluid Albumin 0.3 09/19/19 06:53: Anion Gap 2L, Glomerular Filtration Rate > 60.0, Calcium Level 10.4H, Total Bilirubin 5.4H, Aspartate Amino Transf (AST/SGOT) 50H, Alanine Aminotransferase (ALT/SGPT) 40, Alkaline Phosphatase 99, Total Protein 6.5, Albumin 2.8L, Albumin /Globulin Ratio 0.76L 09/19/19 06:58: Immature Granulocyte % (Auto) 1.5, Neutrophils (%) (Auto) 69.7H, Lymphocytes (%) (Auto) 11.1L, Monocytes (%) (Auto) 15.5H, Eosinophils (%) (Auto) 1.8, Basophils (%) (Auto) 0.4, Neutrophils # (Auto) 4.7, Lymphocytes # (Auto) 0.7L, Monocytes # (Auto) 1.0H, Eosinophils # (Auto) 0.1, Basophils # (Auto) 0.0, Nucleated Red Blood Cells % (auto) 0.0 09/19/19 11:25: Ammonia 33H CBC/BMP Laboratory Tests 09/19/19 06:53 09/19/19 06:58 Microbiology Microbiology 09/18/19 Acid Fast Stain, Received Pending 09/18/19 Mycobacterial Culture, Received Pending 09/18/19 Fungal Smear, Received Pending 09/18/19 Fungal Culture, Received Pending 09/18/19 Gram Stain - Final, Resulted 09/18/19 Body Fluid Culture, Resulted Pending 09/14/19 Respiratory Virus Panel (PCR) (ZENOBIA) - Final, Complete 09/14/19 Blood Culture - Final, Complete NO GROWTH AFTER 5 DAYS 09/14/19 Blood Culture - Final, Complete NO GROWTH AFTER 5 DAYS RACHELLE PAUL-Heri Sep 19, 2019 13:21 ADELAIDA MANUEL MD Sep 19, 2019 19:20
[2019-09-19] MEDS: FUROSEMIDE 40 MG/4 ML VIAL (J1940) IV SCH (22:37)
--- NOTE | 2019-09-19 22:47 | IPN ---
DATE: 09/19/2019 SUBJECTIVE: I saw Leodan today at the bedside on the general medical floor. Today was the first time I was able to have a conversation with him. The patient was preoccupied by his mortality and asked questions at length regarding what his prognosis is with his current clinical condition and liver cirrhosis. He denies shortness of breath at rest but reports that he does feel dyspneic with mild exertion. He tells me that he thinks his peripheral edema in the same as it usually is. Vital signs: Temperature 98.3, pulse 55, respiratory rate 18, blood pressure 155/92, saturating 96% on room air. Intake yesterday 760, urine output yesterday 3150, net negative 2390, weight in the bed scale today 188.9 kg. General: The patient is seen sitting out of bed to the chair, morbidly obese. Today he is a awake, alert and able to have a conversation, does not recognize me from the prior days. He is in no acute distress. He is oriented to person and to place and to situation. He asks appropriate questions. Extraocular muscles are intact. No scleral icterus. Trachea is midline. Jugular veins are difficult to appreciate secondary to his severe morbid obesity and body habitus. Cardiac: Heart sounds are distant. S1, S2 regular. There is 2+ pitting edema bilaterally that comes all the way up to the hip, thigh and dependent area. Respiratory: Breath sounds are distant and diminished but symmetric. There are no rales. Abdomen is significantly obese and distended. There is likely mild to moderate ascites present. There are bowel sounds. Genitourinary: Shows Zuniga catheter in place with the yellow urine. Extremities: Severe chronic venous stasis skin changes in the lower extremities and at least 2+ pitting edema that extends up to the hip and thigh. Neurologic: He is able to tell me his name. He is cooperative with physical exam. He answers simple questions appropriately and no asterixis noted. LABORATORY: Sodium 143, potassium 3.8, bicarbonate 39, BUN 23, creatinine 1.2, calcium 10.4, ammonia 33, albumin 2.8, hemoglobin 13.0, platelets 106. INPATIENT MEDICATIONS: Reviewed by myself. His lactulose dose was adjusted by the primary team. I discontinued his midodrine and his octreotide, and I have reordered albumin. PROBLEMS: 1. Nonoliguric acute kidney injury secondary to hepatorenal syndrome in this patient with decompensated cirrhosis and initial borderline hypotension and acute kidney injury with administration of diuretics. The patient has improved with the combination of albumin infusion, midodrine and octreotide. His creatinine is down to 1.2. He is volume overloaded, and I am going to resume him on diuretics now. I would continue him with albumin while he is being diuresed to promote renal perfusion and intravascular volume. 2. Decompensated diastolic congestive heart failure. Diuretics were initially held because of hepatorenal syndrome and borderline hypotension, and worsening renal failure with diuretics previously. His renal function has now improved, his hemodynamics have improved. He remains volume overloaded, although he has been in net negative fluid balance the past two days as his renal function has recovered. I am going to resume him now on IV Lasix, and we will continue to monitor his urine output, daily weights, and his renal function. Spironolactone is presently held. 3. Hepatic encephalopathy, resolved. Patient was able to have a conversation with me today, and I see his serum ammonia level has significantly improved. Primary team is managing his lactulose. 4. Metabolic alkalosis. This is chronic and likely because of both cirrhosis and also because of metabolic compensation for respiratory acidosis. 5. Hypercalcemia. The patient's corrected calcium is around 11.2, and I am discontinuing the as needed TUMS. DISPOSITION: Renal function has improved status post midodrine, octreotide and [id number] albumin, creatinine 1.2. Patient in volume overload, re-attempt diuresis. Continue albumin at this time. Start IV Lasix and continue albumin.
[2019-09-20] VITALS (9 sets, daily range): BP systolic 124–157; BP diastolic 53–91
[2019-09-20] MEDS: LACTULOSE 20 GM/30 ML SYRUP UD PO SCH ×3 (03:41→20:46)
[2019-09-20] MEDS: HEPARIN SOD (PORCINE) 5000 UNITS/ML VIAL SC SCH ×3 (06:01→21:57)
[2019-09-20 07:35] LABS: HEMATOCRIT 40.9 % (42.0-52.0); HEMOGLOBIN 13.6 g/dl (13.5-17.5); MEAN CORPUSCULAR HEMOGLOBIN 36.9 pg (27.0-33.0); MEAN CORPUSCULAR HGB CONC 33.3 g/dl (32.0-36.5); MEAN CORPUSCULAR VOLUME 110.8 fl (80.0-96.0); RED BLOOD COUNT 3.69 10^6/uL (4.30-6.10); WHITE BLOOD COUNT 6.3 10^3/uL (4.0-10.0)
[2019-09-20 07:38] LABS: PLATELET COUNT, AUTOMATED 79 10^3/uL (150-450)
[2019-09-20 07:45] LABS: ANISOCYTOSIS 1+; ATYPICAL LYMPH 1 % (0-5); BASOPHILS 1 % (0-1); EOSINOPHILS 6 % (0-3); LYMPHOCYTES 14 % (16-44); METAMYELOCYTES 2 % (0-0); MONOCYTES 15 % (0-5); NEUTROPHILS 61 % (28-66); PLATELET ESTIMATE DECREASED (NORMAL)
[2019-09-20 07:50] LABS: ALBUMIN 2.7 GM/DL (3.2-5.2); ALT/SGPT 37 U/L (12-78); BILIRUBIN,TOTAL 5.5 MG/DL (0.2-1.0); BLOOD UREA NITROGEN 19 MG/DL (7-18); CALCIUM LEVEL 10.1 MG/DL (8.5-10.1); CARBON DIOXIDE LEVEL 38 MEQ/L (21-32); CHLORIDE LEVEL 101 MEQ/L (98-107); CREATININE FOR GFR 1.15 MG/DL (0.70-1.30); GLOMERULAR FILTRATION RATE > 60.0 (>56); GLUCOSE, FASTING 103 MG/DL (70-100); POTASSIUM SERUM 3.6 MEQ/L (3.5-5.1); SODIUM LEVEL 143 MEQ/L (136-145)
[2019-09-20] MEDS: FOLIC ACID 1 MG TAB PO SCH (08:43)
[2019-09-20] MEDS: PANTOPRAZOLE 40MG TAB (PROTONIX) PO SCH (08:43)
[2019-09-20] MEDS: CYANOCOBALAMIN 500 MCG TAB PO SCH (08:43)
[2019-09-20] MEDS: THIAMINE HCL 200 MG/2 ML VIAL (J3411) IV SCH (08:44)
[2019-09-20] MEDS: NADOLOL 20MG TABLET PO SCH (08:44)
[2019-09-20] MEDS: SPIRONOLACTONE 25 MG TAB PO SCH ×2 (09:56→17:08)
--- NOTE | 2019-09-20 11:15 | IPNPDOC ---
Date Seen The patient was seen on 09/20/19. Progress Note SUBJECTIVE: Pt seen today at bedside. He has no current complaints now that his hendricks catheter was removed. He has had no problems urinating. He reports no changes in his shortness of breath since his diuretics were restarted. Denies any Changes in mentation, dizziness, weakness, Chest pain, N/V, difficulty moving his bowels or urinating. OBJECTIVE PHYSICAL EXAMINATION: VITAL SIGNS: Please see below. GENERAL: Patient is pleasant and cooperative, sitting up comfortably in chair, alert and oriented in no acute distress. Skin: Visibly apparent Gynecomastia. No Spider Angiomata noted. HEENT: Normocephalic, atraumatic. No scleral icterus. PERRLA. EOMI. no nasal discharge. No tracheal deviation. No obvious swollen lymph nodes CARDIOVASCULAR: Regular rate and rhythm. Normal S1 and S2. No murmurs, gallops or rubs noted RESPIRATORY: Symmetric chest wall motion. Clear to auscultation b/l ABDOMINAL: Grossly distended abdomen. Dull to percussion. Fluid wave noted. Normal bowel sounds in all 4 quadrants. No pain, guarding or rigidity. GENITOURINARY: Hendricks catheter in place. Hydrocele noted. EXTREMITIES:. 2/4 pulses noted throughout. Chronic venous stasis skin changes in lower extremities. 2+ pitting edema noted bilaterally NEUROLOGICAL: Alert and oriented to self. Still unable to give accurate date nor hospital location. However, conversation is appropriate. Spontaneous movements of all extremities. No focal deficits noted. No asterixis noted PSYCHOLOGICAL: Mood and affect were appropriate LABORATORY DATA, MICROBIOLOGY: Please see below. CXR 09/14: Cardiomegaly. Paracentesis 09/15: 4400 cc of fluid removed US Abdomen 09/15: Four-quadrant abdominal survey confirms the presence of mild to moderate abdominal ascites. Ascites is visible in all four quadrants. Echocardiogram: 09/16: 1. Technically limited study due to poor acoustic window. 2. Normal global left ventricular systolic function with mildly enlarged left ventricle and preserved left ventricular wall thickness. 3. There are features of grade 2 left ventricular diastolic dysfunction manifested by a pseudo normal pattern, left ventricular end-diastolic pressure might be elevated. 4. Mitral annulus calcification with mild aortic stenosis but no aortic regurgitation. The ascending aorta is mildly enlarged but normal aortic root. 5. Mildly enlarged left atrium with mitral annulus calcification and trace m itral regurgitation. 6. Dilated right atrium and dilated right atrium and left ventricle with mild tricuspid radiation and probably moderate pulmonary hypertension. 7. There are findings consistent with elevated central venous pressure, the inferior vena cava is mildly enlarged. 8. A small pericardial effusion was noted, no evidence of cardiac tamponade. ASSESSMENT AND PLAN: This is a 58-year-old white male with past medical history of alcoholic liver cirrhosis with ascites and pancytopenia, possible COPD and bilateral stasis dermatitis, presenting with acute on chronic hypercapnic respiratory failure, found to have an ABG, pH 7.247, PCO2 94.2 on admission with subsequent hepatic encephalopathy and ADAM PROBLEMS: Acute on chronic hypercapnic and hypoxic respiratory failure - possibly 2/2 acute exacerbation of COPD or decompensated diastolic / right sided CHF - Clinically, patient's breathing appears to be stable/at baseline - Extensive smoking history - No crackles heard on auscultation -Ordered PT evaluation to evaluate pt's respiratory status on exertion Acute metabolic encephalopathy - likely 2/2 hepatic encephalopathy -Pt is back to baseline -Ammonia continues to trend down today at 33 from 51 -Lactulose continued Cirrhosis w/ ascites - likely 2/2 Alcoholism -MELD score calculated as 21 -Ascitic fluid analysis returned negative for bacteria -Consider pt's interest in returning to rehab ADAM - likely 2/2 hepatorenal syndrome - Creatinine resolved today at 1.2 -s/p hendricks catheter -Per nephrology, okay to d/c Midodrine and Octreotide. Resumed Diuretics (furosemide and Spironolactone). -Continue Albumin. -Continue to monitor renal function, weights, I/O Elevated creatinine - likely 2/2 ADAM - possibly 2/2 diuresis, possibly 2/2 hepatorenal, possibly 2/2 cardiorenal -resolved Decompensated Diastolic Congestive Heart Failure - Pt is edematous - stable respiratory status - Restarted diuretics -Low sodium diet (see above) Coagulopathy - likely 2/2 to Cirrhosis - INR on admission of 1.71 -Continue to monitor Thrombocytopenia / Macrocytic anemia - Hg remains stable - Platelet count stable - No evidence of bleeding - Will continue to monitor Lower extremity edema / Chronic venous stasis- 2/2 to above -(see above) Hydrocele 2/2 to fluid overload - See above Morbid Obesity - BMI of 58.1 - Complicating medical management s/p Hypokalemia -potassium at 3.6 GI prophylaxis - c/w Protonix DVT prophylaxis - c/w Heparin DISPOSITION: Pending Euvolemic status and PT Evaluation ATTENDING NOTE I have personally evaluated and examined the patient. Discussed with residents and student regarding plan of care and agree with the above assessment and plan. VS, I&O, 24H, [place] Vital Signs/I&O Vital Signs Date Time Temp Pulse Resp B/P (MAP) Pulse Ox O2 Delivery O2 Flow Rate FiO2 09/20/19 10:01 97.0 56 18 136/91 94 Room Air 09/18/19 21:02 0.0 09/18/19 20:03 93 I&O- Last 24 Hours up to 6 AM 09/20/19 06:00 Intake Total 2100.0 ml Output Total 1950 ml Balance 150.0 ml Laboratory Data 24H LABS Laboratory Tests 2 09/19/19 11:25: Ammonia 33H 09/20/19 06:02: Immature Granulocyte % (Auto) , Nucleated Red Blood Cells % (auto) 0.0, Neutrophils 61, Lymphocytes (Manual) 14L, Monocytes (Manual) 15H, Eosinophils (Manual) 6H, Basophils (Manual) 1, Metamyelocytes 2H, Atypical Lymphocytes 1, Anisocytosis 1+, Macrocytosis 2+, Platelet Estimate DECREASED, Immature Platelet Fraction 7.7, Anion Gap 4L, Glomerular Filtration Rate > 60.0, Calcium Level 10.1, Total Bilirubin 5.5H, Aspartate Amino Transf (AST/SGOT) 39H, Alanine Amino transferase (ALT/SGPT) 37, Alkaline Phosphatase 89, Total Protein 6.0L, Albumin 2.7L, Albumin/Globulin Ratio 0.82L CBC/BMP Laboratory Tests 09/20/19 06:02 Microbiology Microbiology 09/18/19 Acid Fast Stain, Received Pending 09/18/19 Mycobacterial Culture, Received Pending 09/18/19 Fungal Smear, Received Pending 09/18/19 Fungal Culture, Received Pending 09/18/19 Gram Stain - Final, Complete 09/18/19 Body Fluid Culture - Final, Complete 09/14/19 Respiratory Virus Panel (PCR) ([facility]OBIA) - Final, Complete 09/14/19 Blood Culture - Final, Complete NO GROWTH AFTER 5 DAYS 09/14/19 Blood Culture - Final, Complete NO GROWTH AFTER 5 DAYS RACHELLE PAUL-3 Sep 20, 2019 11:14 ADELAIDA MANUEL MD Sep 20, 2019 14:40
[2019-09-20] MEDS: FUROSEMIDE 40 MG/4 ML VIAL (J1940) IV SCH ×2 (11:42→17:08)
--- NOTE | 2019-09-20 17:44 | IPN ---
DATE: 09/20/2019 SUBJECTIVE: The patient was seen and examined this morning at bedside. He states that he is breathing well and was much more alert and responsive to the questioning today. He was not particularly interested in making conversation. He states that since taking the lactulose he has had a couple of bowel movements. OBJECTIVE: VITAL SIGNS: Temperature 97 degrees Fahrenheit, pulse 56, respiratory rate 18, blood pressure 136/91, saturating 94% on room air. The patient has put out 1825 mL in the last 24 hours and had three bowel movements. PHYSICAL EXAMINATION: GENERAL: The patient is attempting to sleep at bedside but is able to be easily aroused, is alert and oriented times three, and in no acute distress. HEENT: Head is normocephalic, atraumatic. Extraocular muscles intact. Pupils are equal, round, and reactive to light. Mucous membranes moist. No scleral icterus. Unable to appreciate jugular venous distention (JVD) given the patient's body habitus. CARDIAC: Regular rate and rhythm, normal S1 and S2, 2+ pitting edema in bilateral lower extremities extending up to the level of the hip. RESPIRATORY: Diminished breath sounds bilaterally but symmetric and clear. No wheezes or crackles. ABDOMEN: Morbidly obese and distended with mild to moderate ascites present. Bowel sounds positive. GENITOURINARY (): Zuniga catheter is in place with yellow urine in the bag. EXTREMITIES: Severe chronic venous stasis changes in bilateral lower extremities with 2+ pitting edema up to the level of the thigh. NEUROLOGIC: The patient is alert and oriented times three with no focal neurologic deficits. LABORATORY REVIEW: White blood cell count of 6.3, hemoglobin of 13.6, hematocrit of 40.9, platelet count of 79. Sodium of 143, potassium 3.6, chloride 101, bicarbonate 38, BUN 19, creatinine 1.15, glucose 103, calcium 10.1, total bilirubin 5.5, AST 39, ALT 37, alkaline phosphatase 89, total protein 6, albumin 2.7. INPATIENT MEDICATIONS: The patient's lactulose is continued by primary team. He is continued on albumin. We are going to resume his aldactone today and he will also continue on Lasix twice daily. The patient's midodrine and octreotide have been discontinued. ASSESSMENT AND PLAN: 1. Nonoliguric acute kidney injury, secondary to hepatorenal syndrome in a patient with decompensated cirrhosis, initial borderline hypotension and acute kidney injury with administration of diuretics. The patient's creatinine and glomerular filtration rate (GFR) have improved significantly. He is now continued on albumin infusion and has done well off the midodrine and octreotide. His creatinine is now down to 1.1. While he is still volume overloaded, we will continue him on the Lasix and the spironolactone. We will also continue him on the albumin while he is getting diuresed to promote ongoing intravascular volume and renal perfusion. 2. Decompensated diastolic congestive heart failure. His renal function has now improved as have his hemodynamics. While he is volume overloaded, his renal function has recovered. We will continue him on IV Lasix and monitor his urine output, daily weights, and continue to trend his renal function. Spironolactone was resumed today. 3. Hepatic encephalopathy, resolved. The patient is much more alert, oriented, and able to have a conversation when he is appropriately aroused. 4. Metabolic alkalosis, chronic, likely secondary to his cirrhosis and metabolic compensation from his respiratory acidosis. 5. Hypercalcemia. The patient's calcium is normal today.
[2019-09-21] MEDS: LACTULOSE 20 GM/30 ML SYRUP UD PO SCH ×3 (04:07→22:27)
[2019-09-21] MEDS: HEPARIN SOD (PORCINE) 5000 UNITS/ML VIAL SC SCH ×3 (06:00→22:00)
[2019-09-21 06:03] VITALS: BP 131/76
[2019-09-21 06:23] LABS: BASO # 0.1 10^3/uL (0.0-0.2); BASO % 0.9 % (0.0-1.0); EOS # 0.4 10^3/uL (0.0-0.5); EOS % 5.3 % (0.0-3.0); HEMATOCRIT 39.4 % (42.0-52.0); HEMOGLOBIN 13.3 g/dl (13.5-17.5); LYMPH # 0.9 10^3/uL (1.5-5.0); LYMPH % 13.5 % (24.0-44.0); MEAN CORPUSCULAR HEMOGLOBIN 37.5 pg (27.0-33.0); MEAN CORPUSCULAR HGB CONC 33.8 g/dl (32.0-36.5); MONO # 0.8 10^3/uL (0.0-0.8); NEUTROPHILS # 4.4 10^3/uL (1.5-8.5); PLATELET COUNT, AUTOMATED 100 10^3/uL (150-450); RED BLOOD COUNT 3.55 10^6/uL (4.30-6.10); WHITE BLOOD COUNT 6.8 10^3/uL (4.0-10.0)
[2019-09-21 06:41] LABS: ALBUMIN 2.5 GM/DL (3.2-5.2); ALT/SGPT 32 U/L (12-78); BILIRUBIN,TOTAL 6.9 MG/DL (0.2-1.0); BLOOD UREA NITROGEN 20 MG/DL (7-18); CALCIUM LEVEL 9.5 MG/DL (8.5-10.1); CARBON DIOXIDE LEVEL 39 MEQ/L (21-32); CHLORIDE LEVEL 100 MEQ/L (98-107); CREATININE FOR GFR 1.06 MG/DL (0.70-1.30); GLOMERULAR FILTRATION RATE > 60.0 (>56); GLUCOSE, FASTING 99 MG/DL (70-100); POTASSIUM SERUM 3.9 MEQ/L (3.5-5.1); SODIUM LEVEL 145 MEQ/L (136-145); TOTAL PROTEIN 5.6 GM/DL (6.4-8.2)
[2019-09-21 08:15] VITALS: BP 130/70
[2019-09-21 08:30] VITALS: BP 130/70
[2019-09-21] MEDS: NADOLOL 20MG TABLET PO SCH (09:00)
[2019-09-21] MEDS: SPIRONOLACTONE 25 MG TAB PO SCH ×2 (09:32→17:20)
[2019-09-21] MEDS: CYANOCOBALAMIN 500 MCG TAB PO SCH (09:33)
[2019-09-21] MEDS: PANTOPRAZOLE 40MG TAB (PROTONIX) PO SCH (09:33)
[2019-09-21] MEDS: FOLIC ACID 1 MG TAB PO SCH (09:33)
[2019-09-21] MEDS: FUROSEMIDE 40 MG/4 ML VIAL (J1940) IV SCH ×2 (09:57→17:26)
[2019-09-21] MEDS: THIAMINE HCL 200 MG/2 ML VIAL (J3411) IV SCH (09:57)
[2019-09-21 12:15] VITALS: BP 160/63
--- NOTE | 2019-09-21 13:58 | IPNPDOC ---
Date Seen The patient was seen on 09/21/19. Progress Note SUBJECTIVE: Pt was seen today at bedside. He reports no complaints today. Denies any SOB, changes in mentation, dizziness, weakness, chest pain, N/V, difficulty moving his bowels or urinating. OBJECTIVE PHYSICAL EXAMINATION: VITAL SIGNS: Please see below. GENERAL: Patient is pleasant and cooperative, sitting up comfortably in chair, alert and oriented in no acute distress. Skin: Visibly apparent Gynecomastia. No Spider Angiomata noted. HEENT: Normocephalic, atraumatic. No scleral icterus. PERRLA. EOMI. no nasal discharge. No tracheal deviation. No obvious swollen lymph nodes CARDIOVASCULAR: Regular rate and rhythm. Normal S1 and S2. No murmurs, gallops or rubs noted RESPIRATORY: Symmetric chest wall motion. Clear to auscultation b/l ABDOMINAL: Grossly distended abdomen. Dull to percussion. Fluid wave noted. Normal bowel sounds in all 4 quadrants. No pain, guarding or rigidity. GENITOURINARY: Zuniga catheter in place. Hydrocele noted. EXTREMITIES:. 2/4 pulses noted throughout. Chronic venous stasis skin changes in lower extremities. Continued 2+ pitting edema noted bilaterally NEUROLOGICAL: Alert and oriented to self. Still unable to give accurate date nor hospital location. However, conversation is appropriate. Spontaneous movements of all extremities. No focal deficits noted. No asterixis noted PSYCHOLOGICAL: Mood and affect were appropriate LABORATORY DATA, MICROBIOLOGY: Please see below. CXR 09/14: Cardiomegaly. Paracentesis 09/15: 4400 cc of fluid removed US Abdomen 09/15: Four-quadrant abdominal survey confirms the presence of mild to moderate abdominal ascites. Ascites is visible in all four quadrants. Echocardiogram: 09/16: 1. Technically limited study due to poor acoustic window. 2. Normal global left ventricular systolic function with mildly enlarged left ventricle and preserved left ventricular wall thickness. 3. There are features of grade 2 left ventricular diastolic dysfunction manifested by a pseudo normal pattern, left ventricular end-diastolic pressure might be elevated. 4. Mitral annulus calcification with mild aortic stenosis but no aortic regurgitation. The ascending aorta is mildly enlarged but normal aortic root. 5. Mildly enlarged left atrium with mitral annulus calcification and trace mitral regurgitation. 6. Dilated right atrium and dilated right atrium and left ventricle with mild tricuspid radiation and probably moderate pulmonary hypertension. 7. There are findings consistent with elevated central venous pressure, the inferior vena cava is mildly enlarged. 8. A small pericardial effusion was noted, no evidence of cardiac tamponade. ASSESSMENT AND PLAN: This is a 58-year-old white male with past medical history of alcoholic liver cirrhosis with ascites and pancytopenia, possible COPD and bilateral stasis dermatitis, presenting with acute on chronic hypercapnic respiratory failure, found to have an ABG, pH 7.247, PCO2 94.2 on admission with subsequent hepatic encephalopathy and ADAM PROBLEMS: Acute on chronic hypercapnic and hypoxic respiratory failure - possibly 2/2 acute exacerbation of COPD or decompensated diastolic / right sided CHF - Clinically, patient's breathing appears to be stable/at baseline - Extensive smoking history - No crackles heard on auscultation -Patient is comfortable ambulating with PT without any SOB Acute metabolic encephalopathy - likely 2/2 hepatic encephalopathy -Pt continues to be slightly disoriented during exam. Nursing staff report that he is "wetting himself." -Last ammonia at 33 -Lactulose continued Cirrhosis w/ ascites - likely 2/2 Alcoholism -MELD score calculated as 21 -Ascitic fluid analysis returned negative for bacteria -Social work will be meeting with him and assessing his interest in pursuing Rehab for alcoholism. If patient refuses, will determine living arrangements. -Pt not currently cleared by PT due to is mental status still not at baseline. ADAM - likely 2/2 hepatorenal syndrome - Creatinine continues to trend downward. Back to baseline at 1.06 -Nephrology recommends continuing Albumin and Furosemide -Continue to monitor renal function, weights, I/O Elevated creatinine - likely 2/2 ADAM - possibly 2/2 diuresis, possibly 2/2 h epatorenal, possibly 2/2 cardiorenal -resolved Decompensated Diastolic Congestive Heart Failure - Pt is edematous however daily weights are steadily dropping. - stable respiratory status - Restarted diuretics -Low sodium diet (see above) Coagulopathy - likely 2/2 to Cirrhosis - INR on admission of 1.71 -Continue to monitor Thrombocytopenia / Macrocytic anemia - Hg remains stable - Platelet count stable - No evidence of bleeding - Will continue to monitor Lower extremity edema / Chronic venous stasis- 2/2 to above -(see above) Hydrocele 2/2 to fluid overload - See above Morbid Obesity - BMI of 58.1 - Complicating medical management s/p Hypokalemia -potassium at 3.6 GI prophylaxis - c/w Protonix DVT prophylaxis - c/w Heparin DISPOSITION: Pending Rehab arrangements and PT clearance ATTENDING NOTE I have personally evaluated and examined the patient. Discussed with residents and student regarding plan of care and agree with the above assessment and plan. VS, I&O, 24H, Fishbone Vital Signs/I&O Vital Signs Date Time Temp Pulse Resp B/P (MAP) Pulse Ox O2 Delivery O2 Flow Rate FiO2 09/21/19 09:00 56 130/70 09/21/19 08:30 97.1 16 96 Room Air 09/18/19 21:02 0.0 09/18/19 20:03 93 I&O- Last 24 Hours up to 6 AM 09/21/19 06:00 Intake Total 1280.0 ml Output Total 0 ml Balance 1280.0 ml Laboratory Data 24H LABS Laboratory Tests 2 09/21/19 05:50: Immature Granulocyte % (Auto) 4.3H, Neutrophils (%) (Auto) 64.0, Lymphocytes (%) (Auto) 13.5L, Monocytes (%) (Auto) 12.0H, Eosinophils (%) (Auto) 5.3H, Basophils (%) (Auto) 0.9, Neutrophils # (Auto) 4.4, Lymphocytes # (Auto) 0.9L, Monocytes # (Auto) 0.8, Eosinophils # (Auto) 0.4, Basophils # (Auto) 0.1, Nucleated Red Blood Cells % (auto) 0.0, Anion Gap 6L, Glomerular Filtration Rate > 60.0, Calcium Level 9.5, Total Bilirubin 6.9H, Aspartate Amino Transf (AST/SGOT) 43H, Alanine Aminotransferase (ALT/SGPT) 32, Alkaline Phosphatase 79, Total Protein 5.6L, Albumin 2.5L, Albumin/Globulin Ratio 0.81L CBC/BMP Laboratory Tests 09/21/19 05:50 Microbiology Microbiology 09/18/19 Acid Fast Stain, Received Pending 09/18/19 Mycobacterial Culture, Received Pending 09/18/19 Fungal Smear, Received Pending 09/18/19 Fungal Culture, Received Pending 09/18/19 Gram Stain - Final, Complete 09/18/19 Body Fluid Culture - Final, Complete 09/14/19 Respiratory Virus Panel (PCR) ([facility]) - Final, Complete 09/14/19 Blood Culture - Final, Complete NO GROWTH AFTER 5 DAYS 09/14/19 Blood Culture - Final, Complete NO GROWTH AFTER 5 DAYS RACHELLE PAUL-3 Sep 21, 2019 10:38 ADELAIDA MANUEL MD Sep 21, 2019 14:03
--- NOTE | 2019-09-21 16:24 | IPN ---
DATE: 09/21/2019 SUBJECTIVE: The patient is seen and examined this morning in his chair at bedside. No acute events overnight. His main complaint today is that he has been very thirsty and is frustrated by his fluid restriction. We explained it multiple times that he is able to drink water, just that he needs to limit how much he drinks so that he does not continue to become fluid overloaded. He also states that he has been having bowel movement on his lactulose, that his abdomen is still mildly hurting him due to how large it is from his ascites. OBJECTIVE: Vital signs: Temperature of 97.1, pulse 56, respiratory rate is 16, blood pressure 130/70, saturating 96% on room air. Patient has put out 550 mL of urine in the last 24 hours with 16 voids, 4 of which were incontinent and 1 bowel movement. Patient states he has had several. PHYSICAL EXAMINATION: GENERAL: Patient is awake, alert, and oriented. No acute distress. Sitting at bedside in a chair. HEENT: Head is normocephalic, atraumatic. Extraocular muscles intact. Pupils equal, round and reactive to light. Mucous membranes moist. No apparent jugular venous distention (JVD), although the examination is limited secondary to body habitus. CARDIOVASCULAR: Regular rate and rhythm. Normal S1 and S2. No murmurs, gallops, or rubs. RESPIRATORY: Clear to auscultation bilaterally with no wheezes, crackles or rhonchi. ABDOMEN: Obese, soft, nontender to palpation. Ascitic abdomen. Bowel sounds present. EXTREMITIES: Severe chronic venous stasis changes in bilateral lower extremities with 2+ pitting edema at the level of the thigh. NEUROLOGICAL: Alert and oriented times three with no focal neural deficits. LAB REVIEW: White blood cell count of 6.8, hemoglobin of 13.3, hematocrit of 39.4, platelet count of 100. Sodium of 145, potassium of 3.9, chloride of 100. CO2 of 39, BUN of 20, creatinine 1.06. Glucose of 99. Calcium 9.5. Total bilirubin 6.9, AST 43, ALT 32. Total protein 5.6. Albumin 2.5. IMPRESSION: 1. Nonoliguric acute kidney injury secondary to hepatorenal syndrome in a patient in the setting of decompensated cirrhosis with initial borderline hypotension and acute kidney injury with administration of diuretics. Just as yesterday, patient's creatinine and GFR have improved significantly and are now back to baseline. We will continue his albumin infusion and will continue to hold off on resuming midodrine and octreotide as he has done well without. He is still volume overloaded. We will maintain his fluid restriction and continue on diuretics with Lasix and spironolactone. We will also continue him on his albumin while he is getting diuresed. 2. Decompensated diastolic congestive heart failure. Renal function now recovered. He is still volume overloaded based on his extremities. We will continue him on IV Lasix and continue to monitor his urine output, daily weights and trend his renal function. Continue with Lasix and spironolactone. 3. Hepatic encephalopathy resolved. 4. Chronic metabolic alkalosis likely secondary to cirrhosis and metabolic compensation from his respiratory acidosis, likely secondary to possible obstructive sleep apnea (SWETHA). My faculty preceptor for this patient encounter was physically present during the encounter and was fully available. All aspects of the patient interview, examination, medical decision making process, and medical care plan development were reviewed and approved by the faculty preceptor. The faculty preceptor is aware and concurs with the plan as stated in the body of this note and will attest to such by his/her co-signature.
[2019-09-21 19:40] LABS: ABG BASE EXCESS 11.7 (-2.0-2.0); ABG HCO3 35.4 MEQ/L (22.0-26.0); ABG O2 SATURATION 96.6 % (95.0-99.0); ABG PARTIAL PRESSURE CO2 42.2 mmHg (35.0-45.0); ABG PARTIAL PRESSURE O2 81.7 mmHg (75.0-100.0); ABG STANDARD HCO3 35.4 MEQ/L (22.0-26.0); ABG TOTAL CO2 36.7 MEQ/L (22.0-29.0); ABG pH (ARTERIAL) 7.541 UNITS (7.350-7.450)
--- NOTE | 2019-09-21 20:22 | REPVR ---
PROCEDURE INFORMATION: Exam: CT Abdomen Without Contrast Exam date and time: 09/21/2019 7:48 PM Clinical history: 58 years old, male; Abdominal pain; Generalized TECHNIQUE: Imaging protocol: Computed tomography images of the abdomen without contrast. Radiation optimization: All CT scans at this facility use at least one of these dose optimization techniques: automated exposure control; mA and/or kV adjustment per patient size (includes targeted exams where dose is matched to clinical indication); or iterative reconstruction. COMPARISON: [facility] US 09/18/2019 5:28 PM FINDINGS: Pleural space: Smaller pleural effusion. Compressive atelectasis both lung bases. Liver: Small hypodensity in the posterior aspect of the right lobe measuring 9 mm of liver not characterized on this unenhanced scan. Ultrasound evaluation could be obtained if clinically desired. Mildly lobular contour may indicate cirrhosis in the appropriate clinical setting. Gallbladder and bile ducts: Normal. No calcified stones. No ductal dilation. Pancreas: Normal. No ductal dilation. Spleen: There is moderate splenomegaly with a maximum span of 16 centimeters. No focal abnormalities demonstrated. Adrenals: Normal. No mass. Kidneys and ureters: Normal. No hydronephrosis. Stomach and bowel: Mild diverticulosis is present in the distal colon. No diverticulitis. Intraperitoneal space: There is a small amount of free intraperitoneal fluid present. Lymph nodes: Unremarkable. No enlarged lymph nodes. Vasculature: The aorta demonstrates mild atherosclerotic calcification. Bones/joints: The spine demonstrates mild degenerative changes. Moderate to severe central spinal stenosis L3-4 and severe spinal stenosis at L4-5. Soft tissues: There is soft tissue edema demonstrated in the abdominal wall, flanks and buttock regions consistent with anasarca. Other findings: Tubular densities at the gastroesophageal level consistent with gastroesophageal varices. Splenorenal portosystemic collaterals also demonstrated. IMPRESSION: 1. Anasarca. 2. There is a small amount of free intraperitoneal fluid present. 3. Mildly lobular contour may indicate cirrhosis in the appropriate clinical setting. 4. There is moderate splenomegaly with a maximum span of 16 centimeters. No focal abnormalities demonstrated. 5. Mild diverticulosis is present in the distal colon. No diverticulitis. Electronically signed by: Reginald Gilliam On 09/21/2019 20:22:45 PM
[2019-09-21 22:00] VITALS: BP 141/65
[2019-09-21] MEDS: rifAXIMin 550 MG TAB (XIFAXAN) PO SCH (22:59)
[2019-09-21 23:16] LABS: ALT/SGPT 39 U/L (12-78); BILIRUBIN,TOTAL 6.8 MG/DL (0.2-1.0); BLOOD UREA NITROGEN 20 MG/DL (7-18); CALCIUM LEVEL 9.8 MG/DL (8.5-10.1); CARBON DIOXIDE LEVEL 38 MEQ/L (21-32); CHLORIDE LEVEL 98 MEQ/L (98-107); CREATININE FOR GFR 1.14 MG/DL (0.70-1.30); GAMMA GLUTAMYLTRANSPEPTIDASE 48 U/L (15-85); GLOMERULAR FILTRATION RATE > 60.0 (>56); GLUCOSE, FASTING 94 MG/DL (70-100); POTASSIUM SERUM 3.6 MEQ/L (3.5-5.1); SODIUM LEVEL 142 MEQ/L (136-145); TOTAL PROTEIN 6.5 GM/DL (6.4-8.2)
[2019-09-22] MEDS: ACETAMINOPHEN TAB 650MG DOSE (2X325MG) PO PRN (00:43)
[2019-09-22] MEDS ORDERED: IBUPROFEN 400 MG TAB PO ONE (01:30)
[2019-09-22] MEDS: LACTULOSE 20 GM/30 ML SYRUP UD PO SCH ×3 (04:20→20:41)
[2019-09-22] MEDS: HEPARIN SOD (PORCINE) 5000 UNITS/ML VIAL SC SCH ×3 (06:00→20:41)
[2019-09-22 06:09] LABS: BASO # 0.1 10^3/uL (0.0-0.2); BASO % 0.8 % (0.0-1.0); EOS # 0.4 10^3/uL (0.0-0.5); HEMATOCRIT 35.5 % (42.0-52.0); HEMOGLOBIN 11.9 g/dl (13.5-17.5); LYMPH # 1.1 10^3/uL (1.5-5.0); LYMPH % 16.1 % (24.0-44.0); MEAN CORPUSCULAR HGB CONC 33.5 g/dl (32.0-36.5); MEAN CORPUSCULAR VOLUME 110.2 fl (80.0-96.0); MONO % 15.2 % (0.0-5.0); NEUTROPHILS # 3.9 10^3/uL (1.5-8.5); RED BLOOD COUNT 3.22 10^6/uL (4.30-6.10); WHITE BLOOD COUNT 6.7 10^3/uL (4.0-10.0)
[2019-09-22 06:10] LABS: PLATELET COUNT, AUTOMATED 95 10^3/uL (150-450)
[2019-09-22 06:33] LABS: ALBUMIN 2.2 GM/DL (3.2-5.2); ALT/SGPT 36 U/L (12-78); BLOOD UREA NITROGEN 21 MG/DL (7-18); CALCIUM LEVEL 9.3 MG/DL (8.5-10.1); CARBON DIOXIDE LEVEL 35 MEQ/L (21-32); CHLORIDE LEVEL 101 MEQ/L (98-107); CREATININE FOR GFR 1.09 MG/DL (0.70-1.30); GLOMERULAR FILTRATION RATE > 60.0 (>56); GLUCOSE, FASTING 94 MG/DL (70-100); POTASSIUM SERUM 3.5 MEQ/L (3.5-5.1); SODIUM LEVEL 141 MEQ/L (136-145); TOTAL PROTEIN 5.8 GM/DL (6.4-8.2)
[2019-09-22 06:42] VITALS: BP 141/70
[2019-09-22] MEDS: CYANOCOBALAMIN 500 MCG TAB PO SCH (09:59)
[2019-09-22] MEDS: rifAXIMin 550 MG TAB (XIFAXAN) PO SCH ×2 (09:59→20:41)
[2019-09-22] MEDS: FUROSEMIDE 40 MG/4 ML VIAL (J1940) IV SCH ×2 (09:59→17:48)
[2019-09-22] MEDS: FOLIC ACID 1 MG TAB PO SCH (09:59)
[2019-09-22] MEDS: PANTOPRAZOLE 40MG TAB (PROTONIX) PO SCH (09:59)
[2019-09-22] MEDS: THIAMINE HCL 200 MG/2 ML VIAL (J3411) IV SCH (09:59)
[2019-09-22] MEDS: SPIRONOLACTONE 25 MG TAB PO SCH ×2 (10:00→17:48)
[2019-09-22] MEDS: NADOLOL 20MG TABLET PO SCH (10:03)
--- NOTE | 2019-09-22 13:50 | IPNPDOC ---
Date Seen The patient was seen on 09/22/19. Progress Note SUBJECTIVE: Patient was seen today at bedside. He had an episode of altered mental status yesterday evening should resolve by this morning he had 2 bowel movements over the course of the evening. He had no acute complaints besides continuing right upper quadrant abdominal pain. He denied any weakness, dizziness, nausea, vomiting, shortness of breath. OBJECTIVE PHYSICAL EXAMINATION: VITAL SIGNS: Please see below. GENERAL: Patient is pleasant and cooperative, sitting up comfortably in chair, alert and oriented in no acute distress. Skin: Visibly apparent Gynecomastia. No Spider Angiomata noted. HEENT: Normocephalic, atraumatic. No scleral icterus. PERRLA. EOMI. no nasal discharge. No tracheal deviation. No obvious swollen lymph nodes CARDIOVASCULAR: Regular rate and rhythm. Normal S1 and S2. No murmurs, gallops or rubs noted RESPIRATORY: Symmetric chest wall motion. Clear to auscultation b/l ABDOMINAL: Morbidly obese. Grossly distended abdomen. Normal bowel sounds in all 4 quadrants. No pain, guarding or rigidity. EXTREMITIES: 2/4 pulses noted throughout. Chronic venous stasis skin changes in lower extremities. Continued 2+ pitting edema noted bilaterally NEUROLOGICAL: Alert and Oriented to person and place. Patient stated the month was October.CN II-XII intact. 5/5 muscle strength in all extremities. No focal deficits noted. PSYCHOLOGICAL: Mood and affect were appropriate LABORATORY DATA, MICROBIOLOGY: Please see below. CXR 09/14: Cardiomegaly. Paracentesis 09/15: 4400 cc of fluid removed US Abdomen 09/15: Four-quadrant abdominal survey confirms the presence of mild to moderate abdominal ascites. Ascites is visible in all four quadrants. US renal 09/17: Suboptimal study due to body habitus. Bilateral ureteral jets into the bladder. Kidneys suboptimally demonstrated. Right upper quadrant ascites. 09/21. Abdominal CT: Anasarca, small amount of free intraperitoneal fluid present. Mildly lobular contour may indicate cirrhosis. In the appropriate clinical setting. Moderate splenomegaly with maximum span of 16 cm no focal abnormalities demonstrated. Mild diverticulosis is present in the distal colon. No diverticulitis. Echocardiogram: 09/16: 1. Technically limited study due to poor acoustic window. 2. Normal global left ventricular systolic function with mildly enlarged left ventricle and preserved left ventricular wall thickness. 3. There are features of grade 2 left ventricular diastolic dysfunction manifested by a pseudo normal pattern, left ventricular end-diastolic pressure might be elevated. 4. Mitral annulus calcification with mild aortic stenosis but no aortic regurgitation. The ascending aorta is mildly enlarged but normal aortic root. 5. Mildly enlarged left atrium with mitral annulus calcification and trace mitral regurgitation. 6. Dilated right atrium and dilated right atrium and left ventricle with mild tricuspid radiation and probably moderate pulmonary hypertension. 7. There are findings consistent with elevated central venous pressure, the inferior vena cava is mildly enlarged. 8. A small pericardial effusion was noted, no evidence of cardiac tamponade. ASSESSMENT AND PLAN: This is a 58-year-old white male with past medical history of alcoholic liver cirrhosis with ascites and pancytopenia, possible COPD and bilateral stasis dermatitis, presenting with acute on chronic hypercapnic respiratory failure, found to have an ABG, pH 7.247, PCO2 94.2 on admission with subsequent hepatic encephalopathy and ADAM PROBLEMS: Acute on chronic hypercapnic and hypoxic respiratory failure - possibly 2/2 acute exacerbation of COPD or decompensated diastolic / right sided CHF - Clinically, patient's breathing appears to be stable/at baseline - Extensive smoking history - No crackles heard on auscultation -Patient is comfortable ambulating with PT without any SOB Acute metabolic encephalopathy - likely 2/2 hepatic encephalopathy -Hyperbilirubinemia -Pt continues to be slightly disoriented during exam. Nursing staff report that he is "wetting himself." -Last ammonia at 50 -Lactulose dosage may be increased. However, once patient has a bowel movement his mental status improves. Cirrhosis w/ ascites - likely 2/2 Alcoholism -MELD score calculated as 21 -Ascitic fluid analysis returned negative for bacteria -Social work will be meeting with him and assessing his interest in pursuing Rehab for alcoholism. If patient refuses, will determine living arrangements. -Pt not currently cleared by PT due to is mental status still not at baseline. -Pt continues to have elevated bilirubin levels around ~6.5. -Will consult GI, for hyperbilirubinemia and cirrhosis ADAM - likely 2/2 hepatorenal syndrome - Creatinine continues to trend downward. Back to baseline at 1.09 -Nephrology recommends continuing Albumin and Furosemide -Continue to monitor renal function, weights, I/O Elevated creatinine - likely 2/2 ADAM - possibly 2/2 diuresis, possibly 2/2 hepatorenal, possibly 2/2 cardiorenal -resolved Decompensated Diastolic Congestive Heart Failure - Pt is edematous however daily weights are steadily dropping. - stable respiratory status - Restarted diuretics -Low sodium diet (see above) Coagulopathy - likely 2/2 to Cirrhosis - INR on admission of 1.71 -Continue to monitor Thrombocytopenia / Macrocytic anemia - Hg remains stable - Platelet count stable - No evidence of bleeding - Will continue to monitor Lower extremity edema / Chronic venous stasis- 2/2 to above -(see above) Hydrocele 2/2 to fluid overload - See above Morbid Obesity - BMI of 58.1 - Complicating medical management s/p Hypokalemia -potassium at 3.6 GI prophylaxis - c/w Protonix DVT prophylaxis - c/w Heparin DISPOSITION: Pending GI consult, clinical improvement and PT clearance. ATTENDING NOTE I have personally evaluated and examined the patient. Discussed with residents and student regarding plan of care and agree with the above assessment and plan. VS, I&O, 24H, Fishbone Vital Signs/I&O Vital Signs Date Time Temp Pulse Resp B/P (MAP) Pulse Ox O2 Delivery O2 Flow Rate FiO2 09/22/19 10:03 70 122/49 09/22/19 06:42 96.9 20 100 Room Air 09/18/19 21:02 0.0 09/18/19 20:03 93 I&O- Last 24 Hours up to 6 AM 09/22/19 06:00 Intake Total 2632 ml Output Total 1325 ml Balance 1307 ml Laboratory Data 24H LABS Laboratory Tests 2 09/21/19 19:36: Blood Gas Bicarbonate Standard 35.4H, Arterial Blood pH 7.541H, Arterial Blood Partial Pressure CO2 42.2, Arterial Blood Partial Pressure O2 81.7, Arterial Bl ood Total CO2 36.7H, Arterial Blood HCO3 35.4H, Arterial Blood Base Excess 11.7H, Arterial Blood Oxygen Saturation 96.6 09/21/19 22:32: Anion Gap 6L, Glomerular Filtration Rate > 60.0, Calcium Level 9.8, Total Bilirubin 6.8H, Gamma Glutamyl Transferase 48, Aspartate Amino Transf (AST/SGOT) 47H, Alanine Aminotransferase (ALT/SGPT) 39, Alkaline Phosphatase 103, Ammonia 50H, Total Protein 6.5, Albumin 3.0L, Albumin/Globulin Ratio 0.86L 09/22/19 05:57: Anion Gap 5L, Glomerular Filtration Rate > 60.0, Calcium Level 9.3, Total Bilirubin 6.0H, Aspartate Amino Transf (AST/SGOT) 41H, Alanine Aminotransferase (ALT/SGPT) 36, Alkaline Phosphatase 83, Total Protein 5.8L, Albumin 2.2#L, Albumin/Globulin Ratio 0.61L, Immature Granulocyte % (Auto) 2.9, Neutrophils (%) (Auto) 59.0, Lymphocytes (%) (Auto) 16.1L, Monocytes (%) (Auto) 15.2H, Eosinophils (%) (Auto) 6.0H, Basophils (%) (Auto) 0.8, Neutrophils # (Auto) 3.9, Lymphocytes # (Auto) 1.1L, Monocytes # (Auto) 1.0H, Eosinophils # (Auto) 0.4, Basophils # (Auto) 0.1, Nucleated Red Blood Cells % (auto) 0.0, Immature Platelet Fraction 8.6 CBC/BMP Laboratory Tests 09/21/19 22:32 09/22/19 05:57 Microbiology Microbiology 09/18/19 Acid Fast Stain, Received Pending 09/18/19 Mycobacterial Culture, Received Pending 09/18/19 Fungal Smear, Received Pending 09/18/19 Fungal Culture, Received Pending 09/18/19 Gram Stain - Final, Complete 09/18/19 Body Fluid Culture - Final, Complete 09/14/19 Respiratory Virus Panel (PCR) ([facility]) - Final, Complete 09/14/19 Blood Culture - Final, Complete NO GROWTH AFTER 5 DAYS 09/14/19 Blood Culture - Final, Complete NO GROWTH AFTER 5 DAYS RACHELLE PAUL- Sep 22, 2019 13:50 JINNY ACUÑA DO Sep 22, 2019 17:00 ADELAIDA MANUEL MD Sep 22, 2019 19:23
--- NOTE | 2019-09-22 18:37 | IPN ---
DATE: 09/22/2019 SUBJECTIVE: Patient is seen and examined this morning in his chair at bedside. He reports he is doing okay but experienced some knee pain yesterday and received an nonsteroidal anti-inflammatory drugs (NSAID) for it. He otherwise states that he has been urinating quite a bit. OBJECTIVE: Vital signs: Temperature of 96.9, pulse 59, respiratory rate 20, blood pressure 141/70, saturating 100% on room air. Patient put on 1325 mL of urine in the last 24 hours. Had four bowel movements and had seven incontinent voids. Intake: Over 2 liters of fluid consumed yesterday. PHYSICAL EXAMINATION: GENERAL: Patient is an morbidly obese male who appears older than stated age, sitting in his chair at bedside in no acute distress. HEENT: Head is normocephalic, atraumatic. Extraocular muscles intact (EOMI). Mucous membranes moist. He is oriented to person, place, and situation. NO scleral icterus. Jugular veins continue to be difficult to appreciate secondary to his body habitus and severe morbid obesity. CARDIAC: Heart sounds are distant. Regular rate and rhythm. Pitting 2+ in bilateral extremities. Continues all the way up to his hip, thigh, and dependent areas. RESPIRATORY: His breath sounds are also distant and diminished. No crackles on auscultation. ABDOMEN: Morbidly obese and distended with mild to moderate ascites present. Positive bowel sounds. GENITOURINARY: He is sitting at bedside with a bucket underneath him so that he is able to get to the bathroom in time when he needs to urinate. EXTREMITIES: Severe chronic venous skin changes in the lower extremities and 2+ pitting edema up to the level of the hip and thigh. NEUROLOGIC: He is cooperative with physical exam, is alert, and is able to tell me his name. He answers simple questions, and there is no asterixis noted on physical exam. No focal neurologic deficits. LABORATORY REVIEW: White blood cell count of 6.7, hemoglobin 11.9, hematocrit 35.5, platelet count of 95. Sodium of 141, potassium 3.5, chloride 101, bicarbonate 35, BUN 21, creatinine 1.09, glucose 94, calcium of 9.3. Total bilirubin of 6, AST of 41, ALT of 36, alkaline phosphatase of 83, total protein of 5.8, albumin of 2.2. ASSESSMENT AND PLAN: 1. Nonoliguric acute kidney injury secondary to hepatorenal syndrome in setting of decompensated cirrhosis. Initial borderline hypotension and acute kidney injury with administration of diuretics. Once again, the patient's creatinine and GFR have improved significantly. He is continued on albumin, midodrine, octreotide. He continues to be volume overloaded, and as such we will continue him on the current dosage of spironolactone but will increase his Lasix to 40 mg intravenous (IV) every 8 hours instead of just twice daily. He also received ibuprofen last night. We advised that we minimize the use of NSAIDs given his recent acute kidney injury (ADAM) and given his decompensated liver cirrhosis. We would continue to advise that we hold off on any nonsteroidal anti-inflammatory medications. Of note, he has also been noncompliant with his fluid restriction, consuming over 2 liters yesterday despite his 1500 mL fluid restriction. 2. Decompensated diastolic congestive heart failure. Renal function has now improved. He continues to be volume overloaded. We are increasing his IV Lasix and continue to monitor his urine output, daily weights, and trend his renal function. We continue to emphasize that he should be on a fluid restriction, as stated in the order set. 3. Hepatic encephalopathy, resolved. 4. Metabolic alkalosis, chronic and likely secondary to his cirrhosis and metabolic compensation from his respiratory acidosis, which is likely secondary to possible obstructive sleep apnea (SWETHA).
[2019-09-22 20:00] VITALS: BP 122/55
[2019-09-23] MEDS: FUROSEMIDE 40 MG/4 ML VIAL (J1940) IV SCH ×3 (00:52→16:41)
[2019-09-23] MEDS ORDERED: ONDANSETRON 4 MG TAB (S0181) PO PRN (02:15)
[2019-09-23] MEDS: LACTULOSE 20 GM/30 ML SYRUP UD PO SCH ×3 (04:59→20:46)
[2019-09-23] MEDS: HEPARIN SOD (PORCINE) 5000 UNITS/ML VIAL SC SCH ×3 (04:59→20:46)
[2019-09-23 06:00] VITALS: BP 129/66
[2019-09-23 07:28] LABS: BASO # 0.1 10^3/uL (0.0-0.2); EOS # 0.4 10^3/uL (0.0-0.5); EOS % 6.4 % (0.0-3.0); HEMATOCRIT 37.4 % (42.0-52.0); HEMOGLOBIN 12.4 g/dl (13.5-17.5); LYMPH # 1.2 10^3/uL (1.5-5.0); LYMPH % 20.5 % (24.0-44.0); MEAN CORPUSCULAR HEMOGLOBIN 36.8 pg (27.0-33.0); MEAN CORPUSCULAR HGB CONC 33.2 g/dl (32.0-36.5); MONO # 1.2 10^3/uL (0.0-0.8); MONO % 19.5 % (0.0-5.0); NEUTROPHILS % 50.2 % (36.0-66.0); RED BLOOD COUNT 3.37 10^6/uL (4.30-6.10); WHITE BLOOD COUNT 5.9 10^3/uL (4.0-10.0)
[2019-09-23 07:31] LABS: PLATELET COUNT, AUTOMATED 98 10^3/uL (150-450)
[2019-09-23 07:51] LABS: ALBUMIN 2.6 GM/DL (3.2-5.2); ALT/SGPT 33 U/L (12-78); BILIRUBIN,TOTAL 5.1 MG/DL (0.2-1.0); BLOOD UREA NITROGEN 19 MG/DL (7-18); CARBON DIOXIDE LEVEL 41 MEQ/L (21-32); CHLORIDE LEVEL 98 MEQ/L (98-107); CREATININE FOR GFR 1.18 MG/DL (0.70-1.30); GLOMERULAR FILTRATION RATE > 60.0 (>56); GLUCOSE, FASTING 93 MG/DL (70-100); POTASSIUM SERUM 3.3 MEQ/L (3.5-5.1); SODIUM LEVEL 143 MEQ/L (136-145); TOTAL PROTEIN 5.6 GM/DL (6.4-8.2)
[2019-09-23] MEDS ORDERED: POTASSIUM CHLORIDE 10 MEQ SR TABLET PO ONE (08:00)
[2019-09-23] MEDS: rifAXIMin 550 MG TAB (XIFAXAN) PO SCH ×2 (08:32→20:46)
[2019-09-23] MEDS: PANTOPRAZOLE 40MG TAB (PROTONIX) PO SCH (08:32)
[2019-09-23] MEDS: SPIRONOLACTONE 25 MG TAB PO SCH ×2 (08:32→16:40)
[2019-09-23] MEDS: THIAMINE HCL 200 MG/2 ML VIAL (J3411) IV SCH (08:32)
[2019-09-23] MEDS: CYANOCOBALAMIN 500 MCG TAB PO SCH (08:32)
[2019-09-23] MEDS: FOLIC ACID 1 MG TAB PO SCH (08:32)
[2019-09-23] MEDS: NADOLOL 20MG TABLET PO SCH (08:36)
[2019-09-23 14:00] VITALS: BP 120/71
--- NOTE | 2019-09-23 17:15 | IPN ---
DATE: 09/23/2019 SUBJECTIVE: Patient is seen and examined this morning at bedside. He reports that he was nauseous overnight and that he is frustrated by his 1500 mL fluid restriction. He otherwise has no complaints at this time. OBJECTIVE: VITAL SIGNS: Temperature 98.9, pulse 76, respiratory rate 19, blood pressure 129/66, saturating 97% on room air. He put out 750 mL of urine yesterday with three voids and one bowel movement, but so far today has put out 2300 mL of urine. PHYSICAL EXAMINATION: GENERAL: Patient is awake, alert, oriented, in no acute distress, sitting up in his chair at bedside with a bucket filled with urine beneath him. HEENT: Head is normocephalic, atraumatic. Extraocular muscles intact. Pupils equal, round and reactive to light. Mucous membranes moist. Unable to appreciate jugular venous distention (JVD) secondary to body habitus. CARDIOVASCULAR: Heart sounds distant. Regular rate and rhythm. Normal S1, S2. No murmurs, gallops, rubs. 1+ pitting edema of the bilateral lower extremities up to the level of the knee. RESPIRATORY: Lungs are clear to auscultate. Diminished breath sounds bilaterally. No wheezes, crackles or rhonchi appreciated on exam. ABDOMEN: Morbidly obese. Soft, nontender. Moderately distended. EXTREMITIES: 1+ pitting edema up to the level of the knees. NEUROLOGIC: No focal neurological deficits. Patient is alert and oriented times three. LABORATORY REVIEW: White blood cell count 5.9, hemoglobin of 12.4, hematocrit of 37.4, platelet count of 98. Sodium of 143, potassium 3.3, chloride of 98, bicarbonate of 41, BUN of 19, creatinine of 1.18, glucose of 93. ASSESSMENT AND PLAN: 1. Nonoliguric kidney injury secondary to hepatorenal syndrome in the setting of decompensated cirrhosis with initial borderline hypotension and acute kidney injury with administration of diuretics. Patient's creatinine and GFR are back to baseline. We will continue albumin and midodrine and octreotide for his hepatorenal syndrome. His volume overloaded status is improved with his Lasix administration and spironolactone. Because of his size, we will increase his fluid restriction to 2 liters daily. 2. Decompensated diastolic congested heart failure. Renal function is back to baseline. His volume status continues to improve on intravenous (IV) Lasix. We will continue to monitor his urine output, daily weights and trend his renal function; 2000 mL fluid restriction. 3. Hepatic encephalopathy. During our examinations, we have not noted any signs of encephalopathy; however, per nursing staff and the primary team, he seems to be having some confusion at night. Therefore, we did an ammonia level, which came back elevated and are continuing him on lactulose. 4. Metabolic alkalosis. Chronic and likely secondary to his cirrhosis and metabolic compensation from respiratory acidosis.
--- NOTE | 2019-09-23 18:10 | IPNPDOC ---
Date Seen The patient was seen on 09/23/19. Progress Note SUBJECTIVE: Patient much more alert today and is alert and oriented x2 but still slow in cognition. Complains extensively about fluid restriction and upset. Reported an episode of abdominal discomfort yesterday but had resolved. OBJECTIVE PHYSICAL EXAMINATION: VITAL SIGNS: Please see below. General: No acute distress, Alert, slow response/cognition Eyes: Normal sclera, EOMI, MARIN HENT: Atraumatic Cardiovascular: Normal rate, normal rhythm. Pulmonary: Clear to auscultation b/l, no wheezing GI: Soft, nontender, nondistended Skin: Warm and dry Neuro: CN grossly intact. No focal deficits. LABORATORY DATA, IMAGING STUDIES, MICROBIOLOGY: Please see below. DVT prophylaxis ordered?: HSQ ASSESSMENT AND PLAN: 1. Acute on chronic metabolic encephalopathy - Hepatic encephalopathy 2/2 alcoholic liver cirrhosis, elevated NH3 on admission with fluctuating levels. - Reportedly chronic problems with ongoing mental status changes periodically per PCP. - Goal was to get patient to alcohol Rehab. - Mental status improved but does have periods of confusion. - Bilirubin elevated, normally around 2.2, last level 5.5 at PCP's office. - GI to evaluate. - c/w Lactulose and Rifaximin. 2. ADAM - likely hepatorenal syndrome. Cr improved. - Nephrology following. continuing with Lasix. 3. Decompensated diastolic HF - fluid restriction. Lasix ongoing. - Low sodium diet. 4. Morbid obesity - BMI 55.4. DISPOSITION: . VS, I&O, 24H, [facility] Vital Signs/I&O Vital Signs Date Time Temp Pulse Resp B/P (MAP) Pulse Ox O2 Delivery O2 Flow Rate FiO2 09/23/19 14:00 98.1 62 19 120/71 (87) 99 Room Air 09/18/19 21:02 0.0 09/18/19 20:03 93 I&O- Last 24 Hours up to 6 AM 09/23/19 06:00 Intake Total 1300 ml Output Total 2525 ml Balance -1225 ml Laboratory Data 24H LABS Laboratory Tests 2 09/23/19 06:51: Immature Granulocyte % (Auto) 2.4, Neutrophils (%) (Auto) 50.2, Lymphocytes (%) (Auto) 20.5L, Monocytes (%) (Auto) 19.5H, Eosinophils (%) (Auto) 6.4H, Basophils (%) (Auto) 1.0, Neutrophils # (Auto) 3.0, Lymphocytes # (Auto) 1.2L, Monocytes # (Auto) 1.2H, Eosinophils # (Auto) 0.4, Basophils # (Auto) 0.1, Nucleated Red Blood Cells % (auto) 0.0, Immature Platelet Fraction 10.9, Anion Gap 4L, Glomerular Filtration Rate > 60.0, Calcium Level 9.0, Total Bilirubin 5.1H, Aspartate Amino Transf (AST/SGOT) 38H, Alanine Aminotransferase (ALT/SGPT) 33, Alkaline Phosphatase 91, Total Protein 5.6L, Albumin 2.6L, Albumin/Globulin Ratio 0.87L 09/23/19 08:23: Ammonia 75H CBC/BMP Laboratory Tests 09/23/19 06:51 Microbiology Microbiology 09/18/19 Acid Fast Stain, Received Pending 09/18/19 Mycobacterial Culture, Received Pending 09/18/19 Fungal Smear, Received Pending 09/18/19 Fungal Culture, Received Pending 09/18/19 Gram Stain - Final, Complete 09/18/19 Body Fluid Culture - Final, Complete 09/14/19 Respiratory Virus Panel (PCR) (ZENOBIA) - Final, Complete 09/14/19 Blood Culture - Final, Complete NO GROWTH AFTER 5 DAYS 09/14/19 Blood Culture - Final, Complete NO GROWTH AFTER 5 DAYS ADELAIDA MANUEL MD Sep 23, 2019 18:10
[2019-09-23 22:00] VITALS: BP 128/57
[2019-09-24] MEDS: FUROSEMIDE 40 MG/4 ML VIAL (J1940) IV SCH (00:36)
[2019-09-24 02:00] VITALS: BP 126/58
[2019-09-24] MEDS: LACTULOSE 20 GM/30 ML SYRUP UD PO SCH ×3 (03:01→20:23)
[2019-09-24] MEDS: HEPARIN SOD (PORCINE) 5000 UNITS/ML VIAL SC SCH ×3 (05:26→21:59)
[2019-09-24 06:00] VITALS: BP 127/74
[2019-09-24 07:01] LABS: BASO % 0.7 % (0.0-1.0); EOS # 0.3 10^3/uL (0.0-0.5); HEMATOCRIT 36.8 % (42.0-52.0); HEMOGLOBIN 12.3 g/dl (13.5-17.5); LYMPH # 1.2 10^3/uL (1.5-5.0); LYMPH % 20.8 % (24.0-44.0); MEAN CORPUSCULAR HEMOGLOBIN 36.3 pg (27.0-33.0); MEAN CORPUSCULAR HGB CONC 33.4 g/dl (32.0-36.5); MEAN CORPUSCULAR VOLUME 108.6 fl (80.0-96.0); MONO # 0.9 10^3/uL (0.0-0.8); MONO % 14.4 % (0.0-5.0); NEUTROPHILS # 3.4 10^3/uL (1.5-8.5); NEUTROPHILS % 57.4 % (36.0-66.0); PLATELET COUNT, AUTOMATED 112 10^3/uL (150-450); RED BLOOD COUNT 3.39 10^6/uL (4.30-6.10)
[2019-09-24 07:25] LABS: ALT/SGPT 38 U/L (12-78); BILIRUBIN,TOTAL 5.1 MG/DL (0.2-1.0); BLOOD UREA NITROGEN 16 MG/DL (7-18); CALCIUM LEVEL 9.2 MG/DL (8.5-10.1); CARBON DIOXIDE LEVEL 38 MEQ/L (21-32); CHLORIDE LEVEL 97 MEQ/L (98-107); CREATININE FOR GFR 1.14 MG/DL (0.70-1.30); GLOMERULAR FILTRATION RATE > 60.0 (>56); GLUCOSE, FASTING 89 MG/DL (70-100); POTASSIUM SERUM 3.2 MEQ/L (3.5-5.1); SODIUM LEVEL 140 MEQ/L (136-145)
[2019-09-24 07:26] LABS: ALBUMIN 2.8 GM/DL (3.2-5.2); TOTAL PROTEIN 6.4 GM/DL (6.4-8.2)
[2019-09-24] MEDS ORDERED: POTASSIUM CHLORIDE 10 MEQ SR TABLET PO ONE ×2 (08:00→16:00)
[2019-09-24] MEDS: THIAMINE HCL 200 MG/2 ML VIAL (J3411) IV SCH (09:19)
[2019-09-24] MEDS: CYANOCOBALAMIN 500 MCG TAB PO SCH (09:22)
[2019-09-24] MEDS: PANTOPRAZOLE 40MG TAB (PROTONIX) PO SCH (09:22)
[2019-09-24] MEDS: rifAXIMin 550 MG TAB (XIFAXAN) PO SCH ×2 (09:23→20:23)
[2019-09-24] MEDS: NADOLOL 20MG TABLET PO SCH (09:23)
[2019-09-24] MEDS: FOLIC ACID 1 MG TAB PO SCH (09:23)
[2019-09-24] MEDS: FUROSEMIDE 80 MG TAB PO SCH ×2 (09:38→17:22)
[2019-09-24] MEDS: SPIRONOLACTONE 50 MG TAB PO SCH ×2 (09:40→17:20)
[2019-09-24 09:44] VITALS: BP 134/80
[2019-09-24 13:25] VITALS: BP 122/74
--- NOTE | 2019-09-24 14:36 | IPNPDOC ---
Date Seen The patient was seen on 09/24/19. Progress Note SUBJECTIVE: Patient remains alert today but appear to be somewhat confused at times, concern about his elevated ammonia level. Doesn't understand why it's still elevated even though he had stopped drinking. Does not report any abdominal pain today. No acute events reported. OBJECTIVE PHYSICAL EXAMINATION: VITAL SIGNS: Please see below. General: No acute distress, Alert, slow response/cognition Eyes: Normal sclera, EOMI, MARIN HENT: Atraumatic Cardiovascular: Normal rate, normal rhythm. Pulmonary: Clear to auscultation b/l, no wheezing GI: Soft, nontender, nondistended Skin: Warm and dry Neuro: CN grossly intact. No focal deficits. LABORATORY DATA, IMAGING STUDIES, MICROBIOLOGY: Please see below. DVT prophylaxis ordered?: HSQ ASSESSMENT AND PLAN: 1. Acute on chronic metabolic encephalopathy - Hepatic encephalopathy 2/2 alcoholic liver cirrhosis, elevated NH3 on admi ssion with fluctuating levels. - Reportedly chronic problems with ongoing mental status changes periodically per PCP. - Goal was to get patient to alcohol Rehab. - Bilirubin elevated, normally around 2.2, last level 5.5 at PCP's office. - GI to evaluate. - c/w Lactulose and Rifaximin. 2. ADAM - likely hepatorenal syndrome. Cr improved. - Nephrology following. continuing with Lasix. 3. Decompensated diastolic HF - fluid restriction. Lasix ongoing. - Low sodium diet. 4. Morbid obesity - BMI 55.4. DISPOSITION: Alcohol rehab likely early next week if no further intervention recommend by GI. VS, I&O, 24H, [facility] Vital Signs/I&O Vital Signs Date Time Temp Pulse Resp B/P (MAP) Pulse Ox O2 Delivery O2 Flow Rate FiO2 09/24/19 09:44 98.6 66 20 134/80 (98) 96 Room Air 09/18/19 21:02 0.0 09/18/19 20:03 93 I&O- Last 24 Hours up to 6 AM 09/24/19 06:00 Intake Total 1490 ml Output Total 5025 ml Balance -3535 ml Laboratory Data 24H LABS Laboratory Tests 2 09/24/19 06:39: Immature Granulocyte % (Auto) 1.7, Neutrophils (%) (Auto) 57.4, Lymphocytes (%) (Auto) 20.8L, Monocytes (%) (Auto) 14.4H, Eosinophils (%) (Auto) 5.0H, Basophils (%) (Auto) 0.7, Neutrophils # (Auto) 3.4, Lymphocytes # (Auto) 1.2L, Monocytes # (Auto) 0.9H, Eosinophils # (Auto) 0.3, Basophils # (Auto) 0.0, Nucleated Red Blood Cells % (auto) 0.0, Anion Gap 5L, Glomerular Filtration Rate > 60.0, Calcium Level 9.2, Total Bilirubin 5.1H, Aspartate Amino Transf (AST/SGOT) 38H, Alanine Aminotransferase (ALT/SGPT) 38, Alkaline Phosphatase 93, Total Protein 6.4, Albumin 2.8L, Albumin/Globulin Ratio 0.78L CBC/BMP Laboratory Tests 09/24/19 06:39 Microbiology Microbiology 09/18/19 Acid Fast Stain, Received Pending 09/18/19 Mycobacterial Culture, Received Pending 09/18/19 Fungal Smear, Received Pending 09/18/19 Fungal Culture, Received Pending 09/18/19 Gram Stain - Final, Complete 09/18/19 Body Fluid Culture - Final, Complete 09/14/19 Respiratory Virus Panel (PCR) (ZENOBIA) - Final, Complete 09/14/19 Blood Culture - Final, Complete NO GROWTH AFTER 5 DAYS 09/14/19 Blood Culture - Final, Complete NO GROWTH AFTER 5 DAYS ADELAIDA MANUEL MD Sep 24, 2019 14:36
[2019-09-24 17:58] VITALS: BP 122/69
--- NOTE | 2019-09-24 20:00 | IPN ---
DATE: 09/24/2019 Mr. Soria is seen this morning on his bedside. He is feeling about the same and sitting in the chair at the time of my visit. He has known history of chronic stasis with chronic leg edema and hyperpigmentation on his lower extremities. He has history of heavy beer drinking at least a six-pack a day. He did not like the fluid restriction. However, he is now trying to follow it and we changed it to 2000 mL per day yesterday. He has been receiving IV Lasix and peripheral edema has improved significantly. On physical exam today, temperature is 98.6 degrees Fahrenheit, heart rate 60 per minute and respiratory rate 20 per minute. Blood pressure 127/74 mmHg and oxygen saturation 97% on room air. His head is atraumatic. Neck is supple and without JVD or thyroid enlargement. Heart sounds are regular and distant due to obesity. Abdomen is obese, soft and nontender and bowel sounds are present. Extremities with chronic hyperpigmentation with minimal pitting edema. Neurologically he is awake, alert and at his baseline mentation. Today's labs show WBC count 6.0, hemoglobin 12.3 and hematocrit 36.8. Sodium 140, potassium 3.2, CO2 38, BUN 16 and creatinine 1.14. His ammonia level was 75 yesterday. Total bilirubin is 5.1, AST 38, ALT 38 and alkaline phosphatase 93. Total protein 6.4 and albumin 2.8. PROBLEMS: 1. Peripheral edema. His volume status has improved significantly. I am going to stop the IV Lasix and switch him to his oral diuretics at home dose of Lasix 80 mg twice a day and spironolactone 50 mg twice a day. 2. Hypokalemia. His potassium level is low related to diuretic use and he has already received one dose of potassium chloride 40 mEq this morning. I will give him one more dose of potassium chloride this afternoon and recheck his electrolytes tomorrow. 3. Acute kidney injury. His kidney function has leveled off and this is about baseline function. 4. Elevated ammonia level with hepatic dysfunction. The patient has history of chronic alcohol intake. He most likely has cirrhosis of liver and I have discussed with him at length about need for quitting alcohol intake. He understands the risk for worsening liver function with ongoing alcohol intake. I have explained to him possibility of improvement in the liver function if he quit drinking alcohol completely. CAROLINE
[2019-09-24 22:00] VITALS: BP 135/63
[2019-09-25 02:00] VITALS: BP 120/68
[2019-09-25] MEDS: LACTULOSE 20 GM/30 ML SYRUP UD PO SCH ×3 (03:05→20:13)
[2019-09-25] MEDS: HEPARIN SOD (PORCINE) 5000 UNITS/ML VIAL SC SCH ×3 (05:56→21:50)
[2019-09-25 06:00] VITALS: BP 97/63
[2019-09-25 07:33] LABS: BASO # 0.1 10^3/uL (0.0-0.2); EOS # 0.3 10^3/uL (0.0-0.5); EOS % 4.6 % (0.0-3.0); HEMATOCRIT 35.1 % (42.0-52.0); HEMOGLOBIN 11.8 g/dl (13.5-17.5); LYMPH # 1.2 10^3/uL (1.5-5.0); LYMPH % 19.1 % (24.0-44.0); MEAN CORPUSCULAR HEMOGLOBIN 36.9 pg (27.0-33.0); MEAN CORPUSCULAR HGB CONC 33.6 g/dl (32.0-36.5); MEAN CORPUSCULAR VOLUME 109.7 fl (80.0-96.0); MONO # 1.2 10^3/uL (0.0-0.8); MONO % 19.1 % (0.0-5.0); NEUTROPHILS # 3.4 10^3/uL (1.5-8.5); NEUTROPHILS % 54.3 % (36.0-66.0); PLATELET COUNT, AUTOMATED 102 10^3/uL (150-450); WHITE BLOOD COUNT 6.3 10^3/uL (4.0-10.0)
[2019-09-25 07:54] LABS: ALBUMIN 2.4 GM/DL (3.2-5.2); ALT/SGPT 28 U/L (12-78); BILIRUBIN,TOTAL 3.5 MG/DL (0.2-1.0); BLOOD UREA NITROGEN 15 MG/DL (7-18); CALCIUM LEVEL 8.9 MG/DL (8.5-10.1); CARBON DIOXIDE LEVEL 37 MEQ/L (21-32); CHLORIDE LEVEL 99 MEQ/L (98-107); GLOMERULAR FILTRATION RATE > 60.0 (>56); GLUCOSE, FASTING 91 MG/DL (70-100); POTASSIUM SERUM 3.5 MEQ/L (3.5-5.1); SODIUM LEVEL 141 MEQ/L (136-145); TOTAL PROTEIN 5.7 GM/DL (6.4-8.2)
[2019-09-25] MEDS: NADOLOL 20MG TABLET PO SCH (09:00)
[2019-09-25] MEDS: rifAXIMin 550 MG TAB (XIFAXAN) PO SCH ×2 (09:54→20:13)
[2019-09-25] MEDS: FOLIC ACID 1 MG TAB PO SCH (09:55)
[2019-09-25] MEDS: CYANOCOBALAMIN 500 MCG TAB PO SCH (09:55)
[2019-09-25] MEDS: PANTOPRAZOLE 40MG TAB (PROTONIX) PO SCH (09:55)
[2019-09-25] MEDS: SPIRONOLACTONE 50 MG TAB PO SCH (09:55)
[2019-09-25] MEDS: THIAMINE HCL 200 MG/2 ML VIAL (J3411) IV SCH (09:55)
[2019-09-25] MEDS: FUROSEMIDE 80 MG TAB PO SCH (09:55)
--- NOTE | 2019-09-25 10:00 | IPNPDOC ---
Date Seen The patient was seen on 09/25/19. Progress Note SUBJECTIVE: Patient was seen today at bedside. Expressed that he is feeling very well this morning and had no episodes of altered mental status over the weekend. He did explain that Wednesday afternoon he experienced an episode of severe nausea to the point of almost vomiting. However, he received 4 mg of Zofran and that resolved. Wednesday evening, he says he had some left lower quadrant pain. However, it quickly resolved and he believes it to be musculoskeletal. His only complaint today is lower extremity soreness. When asked, he says his legs are significant better compared to before he was admitted. Additionally, he claims that he wants to start moving around and working with PT. He denies any shortness of breath, chest pain, nausea, vomiting, abdominal pain, dizziness or weakness. OBJECTIVE PHYSICAL EXAMINATION: VITAL SIGNS: Please see below. GENERAL: Patient is pleasant and cooperative, sitting up comfortably in bed, alert and oriented in no acute distress. Skin: Visibly apparent Gynecomastia. No Spider Angiomata noted. HEENT: Normocephalic, atraumatic. No scleral icterus. PERRLA. EOMI. no nasal discharge. No tracheal deviation. No obvious swollen lymph nodes CARDIOVASCULAR: Regular rate and rhythm. Normal S1 and S2. No murmurs, gallops or rubs noted RESPIRATORY: Symmetric chest wall motion. Clear to auscultation b/l ABDOMINAL: Morbidly obese.No abdominal distension. Normal bowel sounds in all 4 quadrants. No pain, guarding or rigidity. EXTREMITIES: 2/4 pulses noted throughout. Chronic venous stasis skin changes in lower extremities. 1+ pitting edema noted bilaterally NEUROLOGICAL: AxO x3.CN II-XII intact. 5/5 muscle strength in all extremities. No focal deficits noted. PSYCHOLOGICAL: Mood and affect were appropriate LABORATORY DATA, MICROBIOLOGY: Please see below. CXR 09/14: Cardiomegaly. Paracentesis 09/15: 4400 cc of fluid removed US Abdomen 09/15: Four-quadrant abdominal survey confirms the presence of mild to moderate abdominal ascites. Ascites is visible in all four quadrants. US renal 09/17: Suboptimal study due to body habitus. Bilateral ureteral jets into the bladder. Kidneys suboptimally demonstrated. Right upper quadrant ascites. 09/21. Abdominal CT: Anasarca, small amount of free intraperitoneal fluid present. Mildly lobular contour may indicate cirrhosis. In the appropriate clinical setting. Moderate splenomegaly with maximum span of 16 cm no focal abnormalities demonstrated. Mild diverticulosis is present in the distal colon. No diverticulitis. Echocardiogram: 09/16: 1. Technically limited study due to poor acoustic window. 2. Normal global left ventricular systolic function with mildly enlarged left ventricle and preserved left ventricular wall thickness. 3. There are features of grade 2 left ventricular diastolic dysfunction manifested by a pseudo normal pattern, left ventricular end-diastolic pressure might be elevated. 4. Mitral annulus calcification with mild aortic stenosis but no aortic regurgitation. The ascending aorta is mildly enlarged but normal aortic root. 5. Mildly enlarged left atrium with mitral annulus calcification and trace mitral regurgitation. 6. Dilated right atrium and dilated right atrium and left ventricle with mild tricuspid radiation and probably moderate pulmonary hypertension. 7. There are findings consistent with elevated central venous pressure, the inferior vena cava is mildly enlarged. 8. A small pericardial effusion was noted, no evidence of cardiac tamponade. ASSESSMENT AND PLAN: This is a 58-year-old white male with past medical history of alcoholic liver cirrhosis with ascites and pancytopenia, possible COPD and bilateral stasis dermatitis, initially presenting with acute on chronic hypercapnic respiratory failure and ADAM, now resolved, with subsequent hepatics encephalopathy and continued elevations in bilirubin and ammonia. PROBLEMS: Acute on chronic hypercapnic and hypoxic respiratory failure - possibly 2/2 acute exacerbation of COPD or decompensated diastolic / right sided CHF - Clinically, patient's breathing appears to be stable/at baseline - Extensive smoking history - No crackles heard on auscultation -Patient is comfortable ambulating with PT without any SOB Acute metabolic encephalopathy - likely 2/2 hepatic encephalopathy -Hyperbilirubinemia -Pt A&Ox3 this morning. He waxes and wanes in orientation. -GI to evaluate -Consult PT -continue lactulose and Rifaximin Cirrhosis w/ ascites - likely 2/2 Alcoholism -MELD score calculated as 21 -Maddrey score calculated at 35.2, indicating poor prognosis. Consider repeat PT as PT on admission was used for calculation. - Bilirubin elevated, normally around 2.2, last level 5.5 at PCP's office. -Social work will be meeting with him and assessing his interest in pursuing Rehab for alcoholism. If patient refuses, will determine living arrangements. ADAM - likely 2/2 hepatorenal syndrome - Elevated creatinine resolved to baseline. -Nephrology switched pt to oral diuretics at home dose of Lasix 80mg BID & Spironolactone 50mg BID. -Continue to monitor renal function, weights, I/O Elevated creatinine - likely 2/2 ADAM - possibly 2/2 diuresis, possibly 2/2 hepatorenal, possibly 2/2 cardiorenal -resolved Decompensated Diastolic Congestive Heart Failure - Pt is edematous however daily weights are steadily dropping. - stable respiratory status -Low sodium diet (see above) Coagulopathy - likely 2/2 to Cirrhosis - INR on admission of 1.71 -Continue to monitor Thrombocytopenia / Macrocytic anemia - Hg remains stable - Platelet count stable - No evidence of bleeding - Will continue to monitor Lower extremity edema / Chronic venous stasis- 2/2 to above -(see above) Hydrocele 2/2 to fluid overload - See above Morbid Obesity - BMI of 58.1 - Complicating medical management s/p Hypokalemia -potassium at 3.5 -Continue to monitor. GI prophylaxis - c/w Protonix DVT prophylaxis - c/w Heparin DISPOSITION: Pending GI consult, clinical improvement and PT clearance. VS, I&O, 24H, [facility] Vital Signs/I&O Vital Signs Date Time Temp Pulse Resp B/P (MAP) Pulse Ox O2 Delivery O2 Flow Rate FiO2 09/25/19 06:00 97.5 64 20 97/63 (74) 92 Room Air I&O- Last 24 Hours up to 6 AM 09/25/19 06:00 Intake Total 2110 ml Output Total 2975 ml Balance -865 ml Laboratory Data 24H LABS Laboratory Tests 2 09/25/19 06:54: Immature Granulocyte % (Auto) 1.9, Neutrophils (%) (Auto) 54.3, Lymphocytes (%) (Auto) 19.1L, Monocytes (%) (Auto) 19.1H, Eosinophils (%) (Auto) 4.6H, Basophils (%) (Auto) 1.0, Neutrophils # (Auto) 3.4, Lymphocytes # (Auto) 1.2L, Monocytes # (Auto) 1.2H, Eosinophils # (Auto) 0.3, Basophils # (Auto) 0.1, Nucleated Red Blood Cells % (auto) 0.0, Anion Gap 5L, Glomerular Filtration Rate > 60.0, Calcium Level 8.9, Total Bilirubin 3.5H, Aspartate Amino Transf (AST/SGOT) 32, Alanine Aminotransferase (ALT/SGPT) 28, Alkaline Phosphatase 81, Total Protein 5.7L, Albumin 2.4L, Albumin/Globulin Ratio 0.73L CBC/BMP Laboratory Tests 09/25/19 06:54 Microbiology Microbiology 09/18/19 Acid Fast Stain, Received Pending 09/18/19 Mycobacterial Culture, Received Pending 09/18/19 Fungal Smear, Received Pending 09/18/19 Fungal Culture, Received Pending 09/18/19 Gram Stain - Final, Complete 09/18/19 Body Fluid Culture - Final, Complete GME ATTESTATION GME ATTESTATION My faculty preceptor for this patient encounter was physically present during the encounter and was fully available. All aspects of the patient interview, examination, medical decision making process, and medical care plan development were reviewed and approved by the faculty preceptor. The faculty preceptor is aware and concurs with the plan as stated in the body of this note and will attest to such by his/her cosignature. ATTENDING NOTE Patient was seen and examined by me this morning with the residents. Agree with the above assessment and plan RACHELLE PAUL-3 Sep 25, 2019 10:00 BISHOP WEAVER MD Sep 25, 2019 17:14
--- NOTE | 2019-09-25 12:07 | IPNPDOC ---
Text Note Date of Service The patient was seen on 09/25/19. NOTE Patient remains alert today. First encounter with the patient. Does not report of any abdominal pain. No acute events overnight. PHYSICAL EXAMINATION: VITAL SIGNS: Please see below. General: No acute distress, Alert, slow response/cognition Eyes: Normal sclera, EOMI, MARIN HENT: Atraumatic Cardiovascular: Normal rate, normal rhythm. Pulmonary: Clear to auscultation b/l, no wheezing GI: Soft, nontender, nondistended Skin: Warm and dry Neuro: CN grossly intact. No focal deficits. LABORATORY DATA, IMAGING STUDIES, MICROBIOLOGY: Please see below. ASSESSMENT AND PLAN: 1. Acute on chronic metabolic encephalopathy: Likely secondary to hepatic encephalopathy. Initially had elevated ammonia levels of 75, has been put on lactulose 15 3 times a day to maintain 2-3 bowel movements a day. We will repeat ammonia levels in the morning. SPEP has been ruled out. As the patient has alcoholic hepatitis with DF score greater than 32. The patient will be put on prednisone 40 mg daily for 28 days. Also adjustment in his medications for gastritis will be done. Bilirubin co ntinues to be elevated and will continue to follow that. Continue rifaximin. 2. ADAM: Creatinine improving. Continue with Aldactone and Lasix. Input output monitoring and avoidance of any nephrotoxic drugs. Nephrology on board 3. Decompensated diastolic HF: Continue fluid restrictions and salt rest rictions. Continue Lasix. 4. Alcoholic hepatitis: Treatment as per 1 5. Alcohol abuse. Possibly will require alcohol rehabilitation. Currently on Ciwa protocol. Fall and aspiration precautions Frequent neurochecks VS,Fishbone, I+O VS, Fishbone, I+O Laboratory Tests 09/25/19 06:54 Vital Signs Date Time Temp Pulse Resp B/P (MAP) Pulse Ox O2 Delivery O2 Flow Rate FiO2 09/25/19 09:00 64 97/63 09/25/19 06:00 97.5 20 92 Room Air I&O- Last 24 Hours up to 6 AM 09/25/19 06:00 Intake Total 2110 ml Output Total 2975 ml Balance -865 ml GME ATTESTATION GME ATTESTATION My faculty preceptor for this patient encounter was physically present during the encounter and was fully available. All aspects of the patient interview, examination, medical decision making process, and medical care plan development were reviewed and approved by the faculty preceptor. The faculty preceptor is aware and concurs with the plan as stated in the body of this note and will attest to such by his/her cosignature. ATTENDING NOTE Patient was seen and examined by me this morning with the residents. Agree with the above assessment and plan BISHOP WEAVER MD Sep 25, 2019 12:06
[2019-09-25] MEDS ORDERED: POTASSIUM CHLORIDE 10 MEQ SR TABLET PO ONE (13:00)
--- NOTE | 2019-09-25 14:15 | IPN ---
DATE OF VISIT: 09/25/2019 Mr. Soria has been doing much better and diuresed very well. Yesterday his output was unusually high at 6050 mL and his weight is down to 178 kg. He is not receiving IV Lasix anymore. He is now on oral spironolactone and Lasix same dose that he was taking at home. PHYSICAL EXAMINATION: Temperature 97.5 degrees Fahrenheit, heart rate 64 per minute and respiratory rate 20 per minute. Blood pressure 97/63 mmHg and oxygen saturation 92% on room air. His neck veins are difficult to be assessed. Lungs have diminished breath sounds and heart sounds regular. Abdomen obese, soft and nontender. Extremities have chronic stasis changes with minimal edema. Today's labs show sodium 141, potassium 3.5, chloride 99, CO2 37, BUN 15 and creatinine 1.20. PROBLEMS: 1. Acute kidney injury. Kidney function has been stable and the patient can be followed up as an outpatient by his primary care physician. 2. Generalized anasarca. His volume status is now reasonably well-compensated. The patient should resume his home diuretics and followup with his primary physician. 3. Hypokalemia. Potassium level has corrected to 3.5. He should get one dose of potassium chloride supplement today and continue with spironolactone 50 mg b.i.d. and Lasix 80 mg b.i.d. that he was taking prior to admission. Pain. DISPOSITION: From a renal standpoint, the patient is doing well and can be discharged to home if he passes a home safety evaluation. If he still here tomorrow, then I will be happy to follow up.
[2019-09-25 22:06] VITALS: BP 123/69
[2019-09-26 02:00] VITALS: BP 123/69
[2019-09-26] MEDS: LACTULOSE 20 GM/30 ML SYRUP UD PO SCH ×3 (03:13→20:17)
[2019-09-26] MEDS: HEPARIN SOD (PORCINE) 5000 UNITS/ML VIAL SC SCH ×3 (05:19→21:57)
[2019-09-26 05:48] VITALS: BP 124/70
[2019-09-26 06:27] LABS: ALBUMIN 2.4 GM/DL (3.2-5.2); ALT/SGPT 27 U/L (12-78); BILIRUBIN,TOTAL 3.4 MG/DL (0.2-1.0); BLOOD UREA NITROGEN 13 MG/DL (7-18); CALCIUM LEVEL 9.1 MG/DL (8.5-10.1); CARBON DIOXIDE LEVEL 34 MEQ/L (21-32); CHLORIDE LEVEL 101 MEQ/L (98-107); CREATININE FOR GFR 1.12 MG/DL (0.70-1.30); GLOMERULAR FILTRATION RATE > 60.0 (>56); GLUCOSE, FASTING 91 MG/DL (70-100); POTASSIUM SERUM 3.6 MEQ/L (3.5-5.1); SODIUM LEVEL 140 MEQ/L (136-145); TOTAL PROTEIN 5.9 GM/DL (6.4-8.2)
[2019-09-26] MEDS ORDERED: FUROSEMIDE 40 MG/4 ML VIAL (J1940) XX SCH (09:00)
[2019-09-26] MEDS ORDERED: methylPREDNISolone INJ 125 MG/2 ML VIAL (J2930) IV SCH (09:00)
[2019-09-26 10:00] VITALS: BP 121/71
[2019-09-26] MEDS: FOLIC ACID 1 MG TAB PO SCH (10:36)
[2019-09-26] MEDS: rifAXIMin 550 MG TAB (XIFAXAN) PO SCH ×2 (10:36→20:17)
[2019-09-26] MEDS: CYANOCOBALAMIN 500 MCG TAB PO SCH (10:36)
[2019-09-26] MEDS: SPIRONOLACTONE 50 MG TAB PO SCH (10:36)
[2019-09-26] MEDS: NADOLOL 20MG TABLET PO SCH (10:36)
[2019-09-26] MEDS: FUROSEMIDE 40 MG TAB PO SCH (10:37)
[2019-09-26] MEDS: PANTOPRAZOLE 40MG TAB (PROTONIX) PO SCH (10:37)
[2019-09-26] MEDS: prednisoLONE (PRELONE) 15MG/5ML SYRUP UDC PO SCH (12:30)
[2019-09-26] MEDS: THIAMINE 100 MG TAB PO SCH (12:31)
--- NOTE | 2019-09-26 13:31 | IPNPDOC ---
Text Note Date of Service The patient was seen on 09/26/19. NOTE Patient remains alert today. Does not report of any abdominal pain. No acute events overnight. PHYSICAL EXAMINATION: VITAL SIGNS: Please see below. General: No acute distress, Alert, slow response/cognition Eyes: Normal sclera, EOMI, MARIN HENT: Atraumatic Cardiovascular: Normal rate, normal rhythm. Pulmonary: Clear to auscultation b/l, no wheezing GI: Soft, nontender, nondistended Skin: Warm and dry Neuro: CN grossly intact. No focal deficits. LABORATORY DATA, IMAGING STUDIES, MICROBIOLOGY: Please see below. ASSESSMENT AND PLAN: 1. Acute metabolic encephalopathy: Resolved . Likely secondary to hepatic encephalopathy. Initially had elevated ammonia levels of 75, has been put on lactulose 15 3 times a day to maintain 2-3 bowel movements a day. SBP has been ruled out. As the patient has alcoholic hepatitis with DF score greater than 32. The patient will be put on prednisone 40 mg daily for 28 days. Also adjustment in his medications for ascitis done. Bilirubin continues to be elevated and will continue to follow that. Continue rifaximin. 2. ADAM: Creatinine improving. Continue with Aldactone and Lasix. Input output monitoring and avoidance of any nephrotoxic drugs. Nephrology on board 3. Decompensated diastolic HF: Continue fluid restrictions and salt restrictions. Continue Lasix. 4. Alcoholic hepatitis: Treatment as per 1 5. Alcohol abuse. Possibly will require alcohol rehabilitation. Currently on Ciwa protocol. 6: SBP ruled out. pt might require sbp ppx as ascitic protien is < 1 and pt has silvana > 3 . Will discuss with him in detail. Fall and aspiration precautions Frequent neurochecks Disposition unknown at this time VS,Fishbone, I+O VS, Fishbone, I+O Laboratory Tests 09/26/19 05:38 Vital Signs Date Time Temp Pulse Resp B/P (MAP) Pulse Ox O2 Delivery O2 Flow Rate FiO2 09/26/19 10:36 70 124/70 09/26/19 10:00 98.5 19 99 Room Air I&O- Last 24 Hours up to 6 AM 09/26/19 05:59 Intake Total 1696 ml Output Total 950 ml Balance 746 ml BISHOP WEAVER MD Sep 26, 2019 13:31
[2019-09-26 14:00] VITALS: BP 137/76
[2019-09-26 18:00] VITALS: BP 138/76
[2019-09-26 20:23] VITALS: BP 137/74
[2019-09-27 02:00] VITALS: BP 116/64
[2019-09-27] MEDS: LACTULOSE 20 GM/30 ML SYRUP UD PO SCH ×3 (03:03→20:02)
[2019-09-27] MEDS: HEPARIN SOD (PORCINE) 5000 UNITS/ML VIAL SC SCH ×3 (05:29→21:49)
[2019-09-27 06:00] VITALS: BP 127/71
[2019-09-27 07:21] LABS: ALBUMIN 2.7 GM/DL (3.2-5.2); ALT/SGPT 30 U/L (12-78); BILIRUBIN,TOTAL 3.4 MG/DL (0.2-1.0); BLOOD UREA NITROGEN 12 MG/DL (7-18); CALCIUM LEVEL 8.6 MG/DL (8.5-10.1); CARBON DIOXIDE LEVEL 34 MEQ/L (21-32); CHLORIDE LEVEL 101 MEQ/L (98-107); CREATININE FOR GFR 1.17 MG/DL (0.70-1.30); GLOMERULAR FILTRATION RATE > 60.0 (>56); GLUCOSE, FASTING 142 MG/DL (70-100); POTASSIUM SERUM 3.5 MEQ/L (3.5-5.1); SODIUM LEVEL 138 MEQ/L (136-145); TOTAL PROTEIN 6.6 GM/DL (6.4-8.2)
--- NOTE | 2019-09-27 08:51 | IPNPDOC ---
Text Note Date of Service The patient was seen on 09/27/19. NOTE Patient remains alert today. Does not report of any abdominal pain. No acute events overnight. PHYSICAL EXAMINATION: VITAL SIGNS: Please see below. General: No acute distress, Alert, slow response/cognition Eyes: Normal sclera, EOMI, MARIN HENT: Atraumatic Cardiovascular: Normal rate, normal rhythm. Pulmonary: Clear to auscultation b/l, no wheezing GI: Soft, nontender, nondistended Skin: Warm and dry Neuro: CN grossly intact. No focal deficits. LABORATORY DATA, IMAGING STUDIES, MICROBIOLOGY: Please see below. ASSESSMENT AND PLAN: 1. Acute metabolic encephalopathy: Resolved . Likely secondary to hepatic encephalopathy. Initially had elevated ammonia levels of 75, has been put on lactulose 15 3 times a day to maintain 2-3 bowel movements a day. SBP has been ruled out. As the patient has alcoholic hepatitis with DF score greater than 32. The patient will be put on prednisone 40 mg daily for 28 days. Also adjustment in his medications for ascitis done. Bilirubin continues to be elevated and will continue to follow that. Continue rifaximin. 2. ADAM: Creatinine improving and stable. Continue with Aldactone and Lasix 100 and 40 . Input output monitoring and avoidance of any nephrotoxic drugs. Nephrology on board 3. Decompensated diastolic HF: Continue fluid restrictions and salt restrictions. Continue Lasix. 4. Alcoholic hepatitis: Treatment as per 1 5. Alcohol abuse. Possibly will require alcohol rehabilitation. Currently on Ciwa protocol. 6: SBP ruled out. pt might require sbp ppx as ascitic protien is < 1 and pt has silvana > 3 . Will discuss with him in detail. Fall and aspiration precautions Frequent neurochecks Disposition : [facility] VS,Fishbone, I+O VS, Fishbone, I+O Laboratory Tests 09/27/19 06:28 Vital Signs Date Time Temp Pulse Resp B/P (MAP) Pulse Ox O2 Delivery O2 Flow Rate FiO2 09/27/19 06:00 97.2 71 18 127/71 (89) 100 Room Air I&O- Last 24 Hours up to 6 AM 09/27/19 06:00 Intake Total 1920 ml Output Total 1700 ml Balance 220 ml GME ATTESTATION GME ATTESTATION My faculty preceptor for this patient encounter was physically present during the encounter and was fully available. All aspects of the patient interview, examination, medical decision making process, and medical care plan development were reviewed and approved by the faculty preceptor. The faculty preceptor is aware and concurs with the plan as stated in the body of this note and will attest to such by his/her cosignature. ATTENDING NOTE Patient was seen and examined by me this morning with the residents. Agree with the above assessment and plan BISHOP WEAVER MD Sep 27, 2019 08:51
[2019-09-27] MEDS: PANTOPRAZOLE 40MG TAB (PROTONIX) PO SCH (09:28)
[2019-09-27] MEDS: CYANOCOBALAMIN 500 MCG TAB PO SCH (09:28)
[2019-09-27] MEDS: rifAXIMin 550 MG TAB (XIFAXAN) PO SCH ×2 (09:28→20:02)
[2019-09-27] MEDS: THIAMINE 100 MG TAB PO SCH (09:28)
[2019-09-27] MEDS: SPIRONOLACTONE 50 MG TAB PO SCH (09:28)
[2019-09-27] MEDS: prednisoLONE (PRELONE) 15MG/5ML SYRUP UDC PO SCH (09:29)
[2019-09-27] MEDS: FOLIC ACID 1 MG TAB PO SCH (09:29)
[2019-09-27] MEDS: FUROSEMIDE 40 MG TAB PO SCH (09:29)
[2019-09-27] MEDS: NADOLOL 20MG TABLET PO SCH (09:34)
[2019-09-27 22:00] VITALS: BP 148/67
[2019-09-28] MEDS: RAMELTEON 8 MG TAB (ROZEREM) PO SCH ×2 (02:35→20:52)
[2019-09-28] MEDS: HEPARIN SOD (PORCINE) 5000 UNITS/ML VIAL SC SCH ×3 (05:07→20:52)
[2019-09-28] MEDS: LACTULOSE 20 GM/30 ML SYRUP UD PO SCH ×3 (05:07→20:52)
[2019-09-28 06:32] VITALS: BP 147/66
[2019-09-28 07:22] LABS: BASO # 0.1 10^3/uL (0.0-0.2); BASO % 0.8 % (0.0-1.0); EOS # 0.3 10^3/uL (0.0-0.5); EOS % 2.5 % (0.0-3.0); HEMATOCRIT 33.5 % (42.0-52.0); HEMOGLOBIN 11.2 g/dl (13.5-17.5); LYMPH # 1.6 10^3/uL (1.5-5.0); LYMPH % 14.8 % (24.0-44.0); MEAN CORPUSCULAR HEMOGLOBIN 36.7 pg (27.0-33.0); MEAN CORPUSCULAR HGB CONC 33.4 g/dl (32.0-36.5); MEAN CORPUSCULAR VOLUME 109.8 fl (80.0-96.0); MONO # 1.5 10^3/uL (0.0-0.8); MONO % 13.9 % (0.0-5.0); NEUTROPHILS % 67.2 % (36.0-66.0); PLATELET COUNT, AUTOMATED 132 10^3/uL (150-450); RED BLOOD COUNT 3.05 10^6/uL (4.30-6.10); WHITE BLOOD COUNT 10.5 10^3/uL (4.0-10.0)
[2019-09-28 07:48] LABS: BLOOD UREA NITROGEN 12 MG/DL (7-18); CALCIUM LEVEL 8.5 MG/DL (8.5-10.1); CARBON DIOXIDE LEVEL 33 MEQ/L (21-32); CHLORIDE LEVEL 104 MEQ/L (98-107); GLOMERULAR FILTRATION RATE > 60.0 (>56); GLUCOSE, FASTING 94 MG/DL (70-100); POTASSIUM SERUM 3.8 MEQ/L (3.5-5.1); SODIUM LEVEL 141 MEQ/L (136-145)
[2019-09-28] MEDS: rifAXIMin 550 MG TAB (XIFAXAN) PO SCH ×2 (08:47→20:52)
[2019-09-28] MEDS: FOLIC ACID 1 MG TAB PO SCH (08:47)
[2019-09-28] MEDS: THIAMINE 100 MG TAB PO SCH (08:47)
[2019-09-28] MEDS: SPIRONOLACTONE 50 MG TAB PO SCH (08:47)
[2019-09-28] MEDS: CYANOCOBALAMIN 500 MCG TAB PO SCH (08:47)
[2019-09-28] MEDS: PANTOPRAZOLE 40MG TAB (PROTONIX) PO SCH (08:47)
[2019-09-28] MEDS: FUROSEMIDE 40 MG TAB PO SCH (08:47)
[2019-09-28] MEDS: prednisoLONE (PRELONE) 15MG/5ML SYRUP UDC PO SCH (08:48)
[2019-09-28] MEDS: NADOLOL 20MG TABLET PO SCH (08:49)
[2019-09-28 10:00] VITALS: BP 129/61
[2019-09-28] MEDS ORDERED: PRED5SOL10 PO (11:16)
[2019-09-28] MEDS ORDERED: SPIR100T3 PO (11:16)
[2019-09-28] MEDS ORDERED: FURO40TA2 PO (11:16)
[2019-09-28] MEDS ORDERED: XIFA550T PO (11:16)
--- NOTE | 2019-09-28 11:24 | DS.PDOC ---
Discharge Summary General Date of Admission Sep 14, 2019 at 04:55 Date of Discharge 09/28/19 Discharge Summary CHIEF COMPLAINT: Transfer for higher level of care Final diagnosis Decompensated cirrhosis Alcohol abuse Worsening ascites Alcoholic hepatitis HISTORY OF PRESENT ILLNESS: This is a 58-year-old male who was initially transferred from [place] to a [facility] for alcohol detoxification on September 12. Per d/w the cross- covering provider the patient's course was complicated by the development of encephalopathy possibly 2/2 withdrawal. the patient's mental status worsened, and he was noted to be lethargic but not comatose. It was felt that the change is his mental status was not due to withdrawal as his last dose of ativan was administered the day prior and he did not have other symptoms c/w with alcohol. his ABG revealed a pH of 7.29, PCO2 of 79.7 and PO2 of 103 on 2L NC. After he was switched to BIPAP (04/25) a second ABG revealed a pH of 7.34 with a PCO2 of 72. Transfer to [facility] was requested by the cross covering provider.for his acute metabolic encephalopathy which is resolved . Likely secondary to hepatic encephalopathy. Initially had elevated ammonia levels of 75, has been put on lactulose 15 3 times a day to maintain 2-3 bowel movements a day. Continue same on discharge . SBP has been ruled out. As the patient has alcoholic hepatitis with DF score greater than 32. The patient will be put on prednisone 40 mg daily for 28 days. He needs to follow with GI doctors to decide whether prednislone can be tapered or discontinued. Has been advised not to stop taking the steroids on his own. Explained to him the adrenal insufficiency symptoms.Continue rifaximin. Creatinine improving and stable. Continue with Aldactone and Lasix 100 and 40 . He also has Decompensated diastolic HF: Continue fluid restrictions and salt restrictions. Continue Lasix. His SBP ruled out. pt might require sbp ppx as ascitic protien is < 1 and pt has silvana > 3 . I discussed with him in detail, but he does not want to commit to long-term antibiotics at this time. Advised to follow with GI. He will require GI and PCP follow-up to adjust his medications further. He is very high risk for readmissions. PHYSICAL EXAMINATION: VITAL SIGNS: Please see below. General: No acute distress, Alert, slow response/cognition Eyes: Normal sclera, EOMI, MARIN HENT: Atraumatic Cardiovascular: Normal rate, normal rhythm. Pulmonary: Clear to auscultation b/l, no wheezing GI: Soft, nontender, nondistended Skin: Warm and dry Neuro: CN grossly intact. No focal deficits. Medications. As per discharge reconciliation medication list Activity as tolerated Diet. 2 g sodium diet Follow-up appointments. PCP in 1 week, GI in 1 week Condition on discharge. Patient is medically optimized for discharge Discharge disposition: Home Total time spent on this discharge including coordination of care, review of chart documentation and actual contact is around 35 minutes Vital Signs/I&Os Vital Signs Date Time Temp Pulse Resp B/P (MAP) Pulse Ox O2 Delivery O2 Flow Rate FiO2 09/28/19 08:49 142/66 09/28/19 06:33 97.0 09/28/19 06:32 72 20 100 Room Air I&O- Last 24 Hours up to 6 AM 09/28/19 06:00 Intake Total 1740 ml Output Total 175 ml Balance 1565 ml Laboratory Data Labs 24H Laboratory Tests 2 09/28/19 06:47: Immature Granulocyte % (Auto) 0.8, Neutrophils (%) (Auto) 67.2H, Lymphocytes (%) (Auto) 14.8L, Monocytes (%) (Auto) 13.9H, Eosinophils (%) (Auto) 2.5, Basophils (%) (Auto) 0.8, Neutrophils # (Auto) 7.0, Lymphocytes # (Auto) 1.6, Monocytes # (Auto) 1.5H, Eosinophils # (Auto) 0.3, Basophils # (Auto) 0.1, Nucleated Red Blood Cells % (auto) 0.0, Anion Gap 4L, Glomerular Filtration Rate > 60.0, Calcium Level 8.5 CBC/BMP Laboratory Tests 09/28/19 06:47 Microbiology Microbiology 09/18/19 Acid Fast Stain, Received Pending 09/18/19 Mycobacterial Culture, Received Pending 09/18/19 Fungal Smear, Received Pending 09/18/19 Fungal Culture, Received Pending 09/18/19 Gram Stain - Final, Complete 09/18/19 Body Fluid Culture - Final, Complete Discharge Medications Scheduled Cyanocobalamin (Vitamin B-12) (Vitamin B-12) 1,000 Mcg Tablet, 1,000 MCG PO DAILY, (Reported) Folic Acid (Folic Acid) 1 Mg Tablet, 1 MG PO DAILY, (Reported) Furosemide (Furosemide) 40 Mg Tablet, 40 MG PO DAILY Lactulose (Lactulose) 10 Gm/15 Ml Solution, 30 ML PO QID, (Reported) Melatonin (Melatonin) 5 Mg Tablet, 10 MG PO QHS, (Reported) Nadolol (Nadolol) 40 Mg Tablet, 40 MG PO DAILY, (Reported) Pantoprazole Sodium (Pantoprazole Sodium) 40 Mg Tablet.dr, 40 MG PO DAILY, (Reported) Prednisolone (Prednisolone) 15 Mg/5 Ml Solution, 40 MG PO DAILY Rifaximin (Xifaxan) 550 Mg Tablet, 550 MG PO Q12H Spironolactone (Spironolactone) 100 Mg Tablet, 100 MG PO DAILY Thiamine Mononitrate (Vit B1) (Vitamin B-1) 100 Mg Tablet, 100 MG PO DAILY, (Reported) Scheduled PRN Albuterol Sulfate (Ventolin Hfa) 18 Gm Hfa.aer.ad, 2 PUFF INH Q4H PRN for SHORTNESS OF BREATH, (Reported) Allergies Coded Allergies: Penicillins (Unverified Allergy, Unknown, 09/14/19) BISHOP WEAVER MD Sep 28, 2019 11:18
[2019-09-28 14:00] VITALS: BP 126/68
[2019-09-28 18:00] VITALS: BP 132/64
[2019-09-28 20:00] VITALS: BP 129/65
[2019-09-29] MEDS: LACTULOSE 20 GM/30 ML SYRUP UD PO SCH (05:30)
[2019-09-29] MEDS: HEPARIN SOD (PORCINE) 5000 UNITS/ML VIAL SC SCH (05:31)
[2019-09-29 06:05] LABS: BASO # 0.1 10^3/uL (0.0-0.2); BASO % 0.9 % (0.0-1.0); EOS # 0.2 10^3/uL (0.0-0.5); EOS % 2.2 % (0.0-3.0); HEMATOCRIT 34.9 % (42.0-52.0); HEMOGLOBIN 11.7 g/dl (13.5-17.5); LYMPH # 1.5 10^3/uL (1.5-5.0); LYMPH % 14.6 % (24.0-44.0); MEAN CORPUSCULAR HGB CONC 33.5 g/dl (32.0-36.5); MEAN CORPUSCULAR VOLUME 110.4 fl (80.0-96.0); MONO # 1.3 10^3/uL (0.0-0.8); MONO % 12.2 % (0.0-5.0); NEUTROPHILS # 7.2 10^3/uL (1.5-8.5); NEUTROPHILS % 68.9 % (36.0-66.0); PLATELET COUNT, AUTOMATED 127 10^3/uL (150-450); RED BLOOD COUNT 3.16 10^6/uL (4.30-6.10); WHITE BLOOD COUNT 10.5 10^3/uL (4.0-10.0)
[2019-09-29 06:41] LABS: BLOOD UREA NITROGEN 11 MG/DL (7-18); CALCIUM LEVEL 9.3 MG/DL (8.5-10.1); CARBON DIOXIDE LEVEL 36 MEQ/L (21-32); CHLORIDE LEVEL 104 MEQ/L (98-107); CREATININE FOR GFR 1.09 MG/DL (0.70-1.30); GLOMERULAR FILTRATION RATE > 60.0 (>56); GLUCOSE, FASTING 91 MG/DL (70-100); POTASSIUM SERUM 4.1 MEQ/L (3.5-5.1); SODIUM LEVEL 142 MEQ/L (136-145)
--- NOTE | 2019-09-29 08:03 | IPNPDOC ---
Text Note Date of Service The patient was seen on 09/29/19. NOTE Patient remains alert today. Does not report of any abdominal pain. No acute events overnight. He is awaiting transportation for discharge PHYSICAL EXAMINATION: VITAL SIGNS: Please see below. General: No acute distress, Alert, slow response/cognition Eyes: Normal sclera, EOMI, MARIN HENT: Atraumatic Cardiovascular: Normal rate, normal rhythm. Pulmonary: Clear to auscultation b/l, no wheezing GI: Soft, nontender, nondistended Skin: Warm and dry Neuro: CN grossly intact. No focal deficits. LABORATORY DATA, IMAGING STUDIES, MICROBIOLOGY: Please see below. ASSESSMENT AND PLAN: 1. Acute metabolic encephalopathy: Resolved . Likely secondary to hepatic encephalopathy. Initially had elevated ammonia levels of 75, has been put on lactulose 15 3 times a day to maintain 2-3 bowel movements a day. SBP has been ruled out. As the patient has alcoholic hepatitis with DF score greater than 32. The patient will be put on prednisone 40 mg daily for 28 days. Also adjustment in his medications for ascitis done. Bilirubin continues to be elevated and will continue to follow that. Continue rifaximin. 2. ADAM: Creatinine improving and stable. Continue with Aldactone and Lasix 100 and 40 . Input output monitoring and avoidance of any nephrotoxic drugs. Nephrology on board 3. Decompensated diastolic HF: Continue fluid restrictions and salt restrictions. Continue Lasix. 4. Alcoholic hepatitis: Treatment as per 1 5. Alcohol abuse. Possibly will require alcohol rehabilitation. Currently on Ciwa protocol. 6: SBP ruled out. pt would have required sbp ppx as ascitic protien is < 1 and pt has silvana > 3 . He does not want to commit to long-term prophylaxis with antib iotics Fall and aspiration precautions Frequent neurochecks Disposition : Awaiting transportation today VS,Fishbone, I+O VS, Fishbone, I+O Laboratory Tests 09/29/19 05:39 Vital Signs Date Time Temp Pulse Resp B/P (MAP) Pulse Ox O2 Delivery O2 Flow Rate FiO2 09/29/19 06:11 96.3 56 20 96 Room Air 09/28/19 20:00 129/65 (86) I&O- Last 24 Hours up to 6 AM 09/29/19 06:00 Intake Total 1740 ml Output Total 3000 ml Balance -1260 ml BISHOP WEAVER MD Sep 29, 2019 08:03
[2019-09-29 08:12] VITALS: BP 142/66
[2019-09-29] MEDS: NADOLOL 20MG TABLET PO SCH (08:12)
[2019-09-29] MEDS: FUROSEMIDE 40 MG TAB PO SCH (08:13)
[2019-09-29] MEDS: FOLIC ACID 1 MG TAB PO SCH (08:13)
[2019-09-29] MEDS: THIAMINE 100 MG TAB PO SCH (08:13)
[2019-09-29] MEDS: SPIRONOLACTONE 50 MG TAB PO SCH (08:13)
[2019-09-29] MEDS: rifAXIMin 550 MG TAB (XIFAXAN) PO SCH (08:13)
[2019-09-29] MEDS: prednisoLONE (PRELONE) 15MG/5ML SYRUP UDC PO SCH (08:13)
[2019-09-29] MEDS: CYANOCOBALAMIN 500 MCG TAB PO SCH (08:13)
[2019-09-29] MEDS: PANTOPRAZOLE 40MG TAB (PROTONIX) PO SCH (08:13)
== END 2019-09-29 08:50 | disposition home or self-care (01) | DRG 280 ==
LOC: M ICU 04:55 → M MS5PR 09-18 23:51
PROVIDERS: ADMIT Internal Medicine; ATTEND Internal Medicine
PROC: 02HV33Z Insertion of Infusion Device into Superior Vena Cava, Percutaneous Approach (ICD-10-PCS; principal; 2019-09-14 16:43)
PROC: 0W9G3ZZ Drainage of Peritoneal Cavity, Percutaneous Approach (ICD-10-PCS; 2019-09-15)
PROC: 0W9G3ZZ Drainage of Peritoneal Cavity, Percutaneous Approach (ICD-10-PCS; 2019-09-18)
DX: K70.11 Alcoholic hepatitis with ascites (principal); J96.21 Acute and chronic respiratory failure with hypoxia; I50.31 Acute diastolic (congestive) heart failure; G93.41 Metabolic encephalopathy; N17.9 Acute kidney failure, unspecified; D69.6 Thrombocytopenia, unspecified; D68.4 Acquired coagulation factor deficiency; E87.2 Acidosis; J96.22 Acute and chronic respiratory failure with hypercapnia; E83.51 Hypocalcemia; Z68.43 Body mass index [BMI] 50.0-59.9, adult; E66.01 Morbid (severe) obesity due to excess calories; F10.239 Alcohol dependence with withdrawal, unspecified; Z79.899 Other long term (current) drug therapy; Z88.0 Allergy status to penicillin; G47.33 Obstructive sleep apnea (adult) (pediatric); J44.9 Chronic obstructive pulmonary disease, unspecified; E87.6 Hypokalemia; I87.2 Venous insufficiency (chronic) (peripheral); F17.200 Nicotine dependence, unspecified, uncomplicated; K70.40 Alcoholic hepatic failure without coma; K70.31 Alcoholic cirrhosis of liver with ascites